=== PATIENT | female | born 1945 | race Caucasian/White ===

== ENCOUNTER → 2016-11-09 | Day surgery (SDC) | payer OTHER ==
[2016-10-12 13:32] VITALS: Ht 172.7 cm; Wt 106.8 kg
[~2016-11-09] VITALS: Ht 172.7 cm; Wt 106.8 kg
[~2016-11-09] MED LIST: ACET-1256 PO; ADVIN25/60 PO; ALBUAER19 INH; BENZ1CAP90 PO; CALC500C70 PO; CMD/25 PO; CMD25 PO; COEN100C7 PO; CRAN1CAP PO; CRAN1CAP15 PO; CYM/30 PO; CZR25 PO; DXM/4 PO; ERGO1CAP41 PO; FLUT0.15 NAE; GABA-112 PO; GLC/500 PO; GLIM1TAB2 PO; HYDR-5688 PO; LDXCR30 EXT; LEVO75TA5 PO; LORA-741 PO; LOSA50TA6 PO; MAGN400T6 PO; METF500T5 PO; MGNO400 PO; NCY50 PO; NRN100 PO; NTRGSL/4 UT; ONDA-63 PO; POLY335019 PO; PROM25TA16 PO; RANI150T2 PO; ROSU5TAB PO; TAPE50TA5 PO; TRIATAB3 PO; VNTHFA/IN INH; [UNRECOGNIZED DRUG - OTHER] PO
== END | disposition home or self-care (01) ==
LOC: EDSTATUS 07:30 → C.PAT 11:33
PROVIDERS: ATTEND Ophthalmology
DX: H26.9 Unspecified cataract (principal)

== ENCOUNTER 2017-01-16 22:42 | Inpatient (IN) | payer OTHER ==
[~2017-01-16] VITALS: Ht 170.2 cm; Wt 107.8 kg
[~2017-01-16 22:42] MED LIST changes: -ADVIN25/60 PO; -BENZ1CAP90 PO; -CALC500C70 PO; -CRAN1CAP PO; -CZR25 PO; -DXM/4 PO; -ERGO1CAP41 PO; -GLIM1TAB2 PO; -HYDR-5688 PO; -MAGN400T6 PO; -METF500T5 PO; -MGNO400 PO; -NCY50 PO; -NRN100 PO; -ONDA-63 PO; -PROM25TA16 PO; -RANI150T2 PO; -TAPE50TA5 PO; -VNTHFA/IN INH; -[UNRECOGNIZED DRUG - OTHER] PO
[2017-01-16] MEDS ORDERED: FENTANYL CITRATE INJ 50 MCG/1 ML 2 ML VIAL IV STA (23:20)
[2017-01-16] MEDS ORDERED: SODIUM CHLORIDE 0.9% 1000ML 1,000 ML IV STA (23:20)
[2017-01-16] MEDS ORDERED: PROMETHAZINE HCL INJ 25 MG in SODIUM CHLORIDE 0.9% 50ML 50 ML IV STA (23:20)
[2017-01-16] MEDS ORDERED: ONDANSETRON INJ 2 MG/ML 2 ML VIAL IV STA (23:20)
--- NOTE | 2017-01-16 23:24 | EMERGENCY ROOM VISIT NOTE ---
History Report prepared by Maddie: Ravin Mix Under the Supervision of: Dr. Temo Cooley M.D. First contact with patient: 23:11 Chief Complaint: ABDOMINAL PAIN Stated Complaint: CHEM ON FRI,VOMITING,ABD PAIN,BLOOD IN URINE History of Present Illness The patient is a 71 year old female who presents to the Emergency Room with complaints of intermittent vomiting since 1929. The patient's daughter states that the patient has additionally been sweating, had a fever, and she has had abdominal pain for the past few days that is worse at night when she eats. The patient states that she had chemo done two days ago. Additionally, the daughter states that the patient was at the doctor a few days ago, and there was some blood in the patient's urine, though the patient denies any burning with urination. The patient denies any history of pancreatitis or stomach ulcers, and she denies any leg swelling or passing out recently. Also, the patient does not have any diarrhea, and she states that her bowels are blocked up. She states that she took Zofran, however it did not help with her vomiting, and she is not currently on antibiotics. Source of History: patient, family Onset: 1928 Position: other (global) Quality: other (vomiting) Timing: intermittent Associated Symptoms: + fevers, + abdominal pain, + urinary symptoms, No diarrhea Note: Associated symptoms: Sweating Review of Systems See HPI for pertinent positives & negatives. A total of 10 systems reviewed and were otherwise negative. Past Medical & Surgical Medical Problems: (1) Asthma (2) Diab Karine Wo Compl, Type Ii Or Unspec Type, Not Uncntrld (3) Hypertension Nos (4) Ovarian cancer (5) SBO (small bowel obstruction) Family History Cancer Diabetes mellitus FH: heart disease FHx: gallbladder disease Hypertension Kidney disease Kidney stones Seizures Social History Smoking Status: Never Smoker Alcohol Use: none Drug Use: none Marital Status: Housing Status: lives with significant other Occupation Status: unemployed Current/Historical Medications Scheduled Coenzyme Q10 (Ubidecarenone) (Coq10), 100 MG PO QPM Cranberry-Vitamin C-Vitamin E (Cranberry Concentrate), 200 MG PO UD Dexamethasone (Decadron), 4 MG PO UD Duloxetine HCl (Cymbalta), 30 MG PO QPM Fluticasone Prop/Salmeterol (Advair Diskus 250/50 60 Dose), 1 PUFF PO BID Fluticasone Propionate (Nasal) (Flonase Allergy Relief), 2 SPRAYS SAI DAILY Gabapentin (Gabapentin), 200 MG PO QPM Gabapentin (Neurontin), 100 MG PO QAM Glimepiride (Glimepiride), 1 MG PO UD Hydrocodone/Acetaminophen 5MG/325MG ([place] 5MG/325MG), 1 TABLET PO Q4 Levothyroxine Sodium (Levothyroxine Sodium), 75 MCG PO QAM Losartan Potassium (Losartan Potassium), 25 MG PO DAILY Metformin Hcl Er (Glucophage Er), 500 MG PO DAILY Ranitidine HCl (Ranitidine HCl), 150 MG PO UD Rosuvastatin Calcium (Crestor), 5 MG PO QPM Triamterene/Hctz (Triamterene/Hctz 37.5-25MG), 1 TAB PO QAM Warfarin Sod (Coumadin), 2.5 MG PO 5XWK Warfarin Sod (Coumadin), 5 MG PO 2XWK Scheduled PRN Albuterol Hfa (Ventolin Hfa), 2 PUFFS INH Q4 PRN for Wheezing Benzonatate (Tessalon Perles), 200 MG PO TID PRN for Cough Lorazepam (Ativan), 0.5 MG PO Q4 PRN for Anxiety Ondansetron (Ondansetron HCl), 8 MG PO Q8 PRN for Nausea Polyethylene Glycol 3350 (Miralax), 17 GM PO DAILY PRN for Constipation Promethazine HCl (Promethazine HCl), 25 MG PO Q4 PRN for Nausea Allergies Coded Allergies: Carboplatin (Unverified Allergy, Unknown, anaphylaxis, 01/16/17) Lisinopril (Verified Adverse Reaction, Severe, coughing, 01/16/17) Physical Exam Vital Signs Date Time Temp Pulse Resp B/P (MAP) Pulse Ox O2 Delivery O2 Flow Rate FiO2 01/17/17 02:00 59 18 147/72 93 Room Air 01/17/17 00:13 56 18 117/59 95 Room Air 01/17/17 00:00 59 01/16/17 22:44 36.6 56 18 148/84 98 Room Air Physical Exam GENERAL: Patient is uncomfortable appearing and in moderate distress. Dry heaving. HEENT: No acute trauma, normocephalic atraumatic, mucous membranes dry, no nasal congestion, no scleral icterus. NECK: No stridor, no adenopathy, no meningismus, trachea is midline. LUNGS: No dyspnea. Clear to auscultation and equal bilaterally. No wheeze, no rhonchi. HEART: Regular rate and rhythm. No murmurs, rubs, gallops appreciated. ABDOMEN: Vague diffuse tenderness in the upper abdomen. Soft, bowel sounds positive, no masses appreciated, no peritonitis. CHEST: Port in the left upper chest. BACK: No midline tenderness, no CVA tenderness EXTREMITIES: Normal motion all extremities, no cyanosis, no edema. NEUROLOGIC: Alert and oriented, no acute motor or sensory deficits, no focal weakness, cranial nerves grossly intact. SKIN: No rash, no jaundice, no diaphoresis. Medical Decision & Procedures ER Provider Diagnostic Interpretation: CT results as stated below per interpretation by me and the radiologist: Please see [facility]. Improvement in the nodules. Early to partial bowel transition in the right lower quadrant. Laboratory Results 01/16/17 23:25 Red Blood Count 4.38, Mean Corpuscular Volume 87.0, Mean Corpuscular Hemoglobin 29.5, Mean Corpuscular Hemoglobin Concent 33.9, Mean Platelet Volume 9.7, Neutrophils (%) (Auto) 81.0, Lymphocytes (%) (Auto) 17.9, Monocytes (%) (Auto) 0.8, Eosinophils (%) (Auto) 0.0, Basophils (%) (Auto) 0.0, Neutrophils # (Auto) 10.24, Lymphocytes # (Auto) 2.26, Monocytes # (Auto) 0.10, Eosinophils # (Auto) 0.00, Basophils # (Auto) 0.00 01/16/17 23:25 Test 01/16/17 00:55 01/16/17 23:25 Urine Color YELLOW Urine Appearance CLEAR (CLEAR) Urine pH 6.5 (4.5-7.5) Urine Specific [place] 1.019 (1.000-1.030) Urine Protein NEG (NEG) Urine Glucose (UA) NEG (NEG) Urine Ketones TRACE (NEG) Urine Occult Blood NEG (NEG) Urine Nitrite NEG (NEG) Urine Bilirubin NEG (NEG) Urine Urobilinogen NEG (NEG) Urine Leukocyte Esterase TRACE (NEG) Urine WBC (Auto) 5-10 /hpf (0-5) Urine RBC (Auto) 0-4 /hpf (0-4) Urine Hyaline Casts (Auto) 1-5 /lpf (0-5) Urine Epithelial Cells (Auto) >30 /lpf (0-5) Urine Bacteria (Auto) NEG (NEG) White Blood Count 12.64 K/uL (4.8-10.8) Red Blood Count 4.38 M/uL (4.2-5.4) Hemoglobin 12.9 g/dL (12.0-16.0) Hematocrit 38.1 % (37-47) Mean Corpuscular Volume 87.0 fL (80-100) Mean Corpuscular Hemoglobin 29.5 pg (25-34) Mean Corpuscular Hemoglobin Concent 33.9 g/dl (32-36) Platelet Count 301 K/uL (130-400) Mean Platelet Volume 9.7 fL (7.4-10.4) Neutrophils (%) (Auto) 81.0 % Lymphocytes (%) (Auto) 17.9 % Monocytes (%) (Auto) 0.8 % Eosinophils (%) (Auto) 0.0 % Basophils (%) (Auto) 0.0 % Neutrophils # (Auto) 10.24 K/uL (1.4-6.5) Lymphocytes # (Auto) 2.26 K/uL (1.2-3.4) Monocytes # (Auto) 0.10 K/uL (0.11-0.59) Eosinophils # (Auto) 0.00 K/uL (0-0.5) Basophils # (Auto) 0.00 K/uL (0-0.2) RDW Standard Deviation 46.2 fL (36.4-46.3) RDW Coefficient of Variation 14.5 % (11.5-14.5) Immature Granulocyte % (Auto) 0.3 % Immature Granulocyte # (Auto) 0.04 K/uL (0.00-0.02) Prothrombin Time 43.7 SECONDS (9.0-12.0) Prothromb Time International Ratio 3.9 (0.9-1.1) Activated Partial Thromboplast Time > 300.0 SECONDS Partial Thromboplastin Ratio > 11.0 Anion Gap 9.0 mmol/L (3-11) Est Creatinine Clear Calc Drug Dose 68.0 ml/min Estimated GFR () 69.4 Estimated GFR (Non- 59.9 BUN/Creatinine Ratio 24.4 (10-20) Calcium Level 9.0 mg/dl (8.5-10.1) Magnesium Level 1.8 mg/dl (1.8-2.4) Total Bilirubin 1.3 mg/dl (0.2-1) Direct Bilirubin 0.2 mg/dl (0-0.2) Aspartate Amino Transf (AST/SGOT) 18 U/L (15-37) Alanine Aminotransferase (ALT/SGPT) 19 U/L (12-78) Alkaline Phosphatase 67 U/L (45-117) Total Protein 7.1 gm/dl (6.4-8.2) Albumin 3.3 gm/dl (3.4-5.0) Lipase 64 U/L (73-393) Laboratory results as reviewed by me. Medications Administered Medications (Trade) Dose Ordered Sig/Alcides Route Start Time Stop Time Status Last Admin Dose Admin Promethazine HCl 25 mg/Sodium Chloride 51 ml @ 204 mls/hr NOW STAT IV 01/16/17 23:20 01/16/17 23:34 DC 01/16/17 23:47 204 MLS/HR Fentanyl Citrate (Fentanyl Inj) 50 mcg NOW STAT IV 01/16/17 23:20 01/16/17 23:22 DC 01/16/17 23:46 50 MCG Sodium Chloride 1,000 ml @ 999 mls/hr Q1H1M STAT IV 01/16/17 23:20 01/17/17 00:20 DC 01/16/17 23:47 999 MLS/HR Ondansetron HCl (Zofran Inj) 4 mg NOW STAT IV 01/16/17 23:20 01/16/17 23:22 DC 01/16/17 23:46 4 MG Sodium Chloride 1,000 ml @ 100 mls/hr Q10H STAT IV 01/17/17 02:00 01/17/17 04:58 DC 01/17/17 02:00 100 MLS/HR ED Course 2311: The patient was evaluated in room A12. A complete history and physical exam was performed. 2320: Zofran Inj 4mg IV, Sodium Chloride 1000 ml @ 999 mls/hr, Fentanyl Inj 50mcg IV, Promethazine HCl 25mg/ Sodium Chloride 51ml @ 204mls/hr IV 2352: I reevaluated the patient, and she states that she is feeling better. 0038: The patient is feeling better, and I discussed at length with the patient' s family, and they would like to proceed with the CT scan. 0155: I reevaluated the patient, and she was sleeping. She has not vomited since she has been here. She will be NPO and we will start fluids on her. 0200: Sodium Chloride 1000 ml @ 100 mls/hr IV 0208: I discussed the patient's case with Dr. Muhammad, Hospitalist. He is going to evaluate the patient for further treatment. Medical Decision Differential: Gastroenteritis, Post Chemo vomiting, Food Borne, Esophageal Perforation, , Electrolyte Abnormality, Dehydration, Intraabdominal Infection, UTI/Pyelonephritis, Bowel Obstruction, Biliary Pathology, amongst other pathology entertained. 71 yr old pleasant female arrives with increasing nausea, vomiting and abdominal pain over last 24-48 hours s/p chemotherapy. Previous surgery for ovarian ca removal. Given Zofran, Phenergan, fentanyl, nss. Feeling better but with symptoms worse than previous felt that CT reasonable of abdomen. Partial vs early SBO noted with RLQ transition point. She is stable, has had no further vomiting and abdomen now soft. With CT findings and initial presentation I feel she does need to come in for further monitoring/treatment. Discussed with hospitalist for further work-up and evaluation. Family and patient agreeable with this plan. Medication Reconcilliation Current Medication List: was personally reviewed by me Blood Pressure Screening Patient's blood pressure: Normal blood pressure Consults Time Called: 020 Consulting Physician: Dr. Muhammad, Hospitalist Returned Call: [phone] I discussed the patient's case with Dr. Muhammad, Hospitalist. He is going to evaluate the patient for further treatment. Impression Primary Impression: Small bowel obstruction Additional Impression: Dehydration Scribe Attestation The scribe's documentation has been prepared under my direction and personally reviewed by me in its entirety. I confirm that the note above accurately reflects all work, treatment, procedures, and medical decision making performed by me. Departure Information Dispostion Being Evaluated By Hospitalist Referrals Marcelina Uriarte M.D. (PCP) Patient Instructions My [facility] Problem Qualifiers
[2017-01-16] MEDS ORDERED: CRAN1CAP PO (23:30)
[2017-01-16] MEDS ORDERED: METF500T5 PO (23:33)
[2017-01-16] MEDS ORDERED: GABA-112 PO (23:34)
[2017-01-16] MEDS ORDERED: NRN100 PO (23:34)
[2017-01-16] MEDS ORDERED: GLIM1TAB2 PO (23:35)
[2017-01-16] MEDS ORDERED: ONDA-63 PO (23:39)
[2017-01-16] MEDS ORDERED: PROM25TA16 PO (23:39)
[2017-01-16] MEDS ORDERED: CZR25 PO (23:39)
[2017-01-16] MEDS ORDERED: ADVIN25/60 PO (23:39)
[2017-01-16] MEDS ORDERED: RANI150T2 PO (23:39)
[2017-01-16] MEDS ORDERED: BENZ1CAP90 PO (23:42)
[2017-01-16] MEDS ORDERED: HYDR-5688 PO (23:43)
[2017-01-16] MEDS ORDERED: DXM/4 PO (23:44)
[2017-01-16] MEDS ORDERED: VNTHFA/IN INH (23:45)
[2017-01-16 23:50] LABS: COMPLETE YES; HEMATOCRIT 38.1 % (37-47); IG% 0.3 %; LYMPH % 17.9 %; LYMPH ABS # 2.26 K/uL (1.2-3.4); MEAN CORPUSCULAR HEMOGLOBIN 29.5 pg (25-34); MEAN CORPUSCULAR HGB CONC 33.9 g/dl (32-36); MEAN PLATELET VOLUME 9.7 fL (7.4-10.4); MONO % 0.8 %; PLATELET COUNT 301 K/uL (130-400); RED BLOOD COUNT 4.38 M/uL (4.2-5.4); WHITE BLOOD COUNT 12.64 K/uL (4.8-10.8)
[2017-01-17] LABS: BUN/CREATININE RATIO 24.4 (10-20); CREATININE 0.96 mg/dl (0.60-1.20); POTASSIUM 3.3 mmol/L (3.5-5.1)
[2017-01-17] MEDS ORDERED: OPTIRAY 320 IV PRN (01:00)
[2017-01-17 01:07] LABS: URINE APPEARANCE CLEAR (CLEAR); URINE BILIRUBIN NEG (NEG); URINE COLOR YELLOW; URINE EPITHELIAL CELL AUTO >30 /lpf (0-5); URINE NITRITE NEG (NEG); URINE PH 6.5 (4.5-7.5); URINE SPECIFIC GRAVITY 1.019 (1.000-1.030); UROBILINOGEN NEG (NEG); ZZUR CULT IF INDIC CLEAN CATCH NO
[2017-01-17 01:12] LABS: MANUAL MICROSCOPIC REQUIRED? NO; REVIEW REQ? NO
[2017-01-17] MEDS ORDERED: SODIUM CHLORIDE 0.9% 1000ML 1,000 ML IV STA (02:00)
[2017-01-17] MEDS ORDERED: POTASSIUM CHLORIDE 10 MEQ TABCR PO STA (02:13)
[2017-01-17] MEDS ORDERED: LACTATED RINGER'S 1000ML 1,000 ML IV SCH (02:15)
[2017-01-17 02:23] LABS: MAGNESIUM 1.8 mg/dl (1.8-2.4)
[2017-01-17] MEDS ORDERED: KETOROLAC TROMETHAMINE 30 MG/ML VIAL IV ONE (02:40)
[2017-01-17] MEDS ORDERED: METOCLOPRAMIDE HCL INJ 5 MG/ML 2 ML VIAL IV ONE (02:40)
[2017-01-17] MEDS ORDERED: LORAZEPAM 2 MG/ML 1 ML VIAL IV PRN (02:45)
[2017-01-17] MEDS ORDERED: PROMETHAZINE HCL INJ 12.5 MG in SODIUM CHLORIDE 0.9% 50ML 50 ML IV PRN (02:45)
[2017-01-17] MEDS ORDERED: POLYETHYLENE (MIRALAX) 17 GM PACK PO PRN (02:45)
[2017-01-17] MEDS ORDERED: GLUCOSE 10 TABS/TUBE PO PRN (02:45)
[2017-01-17] MEDS ORDERED: ACETAMINOPHEN 325 MG TAB PO PRN (02:45)
[2017-01-17] MEDS ORDERED: HYDROmorphone INJ 0.5 MG/0.5 ML SYR IV PRN (02:45)
[2017-01-17] MEDS ORDERED: GLUCAGON FOR INJ 1 MG VIAL SQ PRN (02:45)
[2017-01-17] MEDS ORDERED: METOCLOPRAMIDE HCL INJ 5 MG/ML 2 ML VIAL IV PRN (02:45)
[2017-01-17] MEDS ORDERED: GLUCOSE 40% GEL 15 GM TUBE PO PRN (02:45)
[2017-01-17] MEDS ORDERED: ONDANSETRON INJ 2 MG/ML 2 ML VIAL IV PRN (02:45)
[2017-01-17] MEDS ORDERED: DEXTROSE 50% 50 ML SYR IV PRN (02:45)
[2017-01-17] MEDS ORDERED: KETOROLAC TROMETHAMINE 30 MG/ML VIAL IV PRN (02:45)
[2017-01-17] MEDS ORDERED: KETOROLAC TROMETHAMINE 30 MG/ML VIAL ONE (02:53)
[2017-01-17] MEDS ORDERED: METOCLOPRAMIDE HCL INJ 5 MG/ML 2 ML VIAL ONE (02:53)
[2017-01-17 02:57] LABS: PROTHROMBIN TIME (PATIENT) 43.7 SECONDS (9.0-12.0)
[2017-01-17 03:24] LABS: PARTIAL THROMBOPLASTIN RATIO > 11.0
[2017-01-17] MEDS ORDERED: PHYTONADIONE 5 MG TAB PO STA (03:41)
[2017-01-17 03:43] VITALS: BP 113/73; PULSE 62; TEMP 36.6; O2SAT 95; Ht 170.2 cm; Wt 107.8 kg
[2017-01-17 03:55] LABS: INR 3.9 (0.9-1.1)
[2017-01-17] MEDS ORDERED: HYDROmorphone INJ 0.5 MG/0.5 ML SYR ONE (04:04)
[2017-01-17] MEDS ORDERED: BISACODYL 10 MG SUPP PR ONE (05:00)
[2017-01-17] MEDS ORDERED: POLYETHYLENE (MIRALAX) 17 GM PACK PO ONE (05:00)
[2017-01-17] MEDS ORDERED: INSULIN ASPART 100 UNITS/ML 3 ML PEN SC ONE (05:00)
[2017-01-17] MEDS ORDERED: INSULIN GLARGINE SOLOSTAR 100 UNITS/ML 3 ML PEN SC ONE (05:00)
[2017-01-17] MEDS ORDERED: DOCUSATE SODIUM/SENNA 50/8.6MG TAB PO ONE (05:00)
[2017-01-17] MEDS ORDERED: PHYTONADIONE PED INJ 1 MG, ORA-SWEET SYRUP 2.25 ML, ORA-PLUS SUSP. VEHICLE 2.25 ML, BAR... PO STA ×3 (05:11)
[2017-01-17] MEDS: LACTATED RINGER'S 1000ML 1,000 ML IV SCH ×2 (05:16→15:19)
[2017-01-17] MEDS: POTASSIUM CHLR 10 MEQ / WTR 10 MEQ in PREMIXED WATER 100 ML IV SCH ×2 (05:31→06:41)
[2017-01-17 06:24] VITALS: O2SAT 95
[2017-01-17] MEDS: INSULIN ASPART 100 UNITS/ML 3 ML PEN SC SCH ×4 (06:30→23:50)
[2017-01-17] MEDS ORDERED: NURSING VERBAL MED ORDER ONE (06:30)
[2017-01-17] MEDS: LEVOTHYROXINE 75 MCG TAB PO SCH (06:46)
[2017-01-17] MEDS ORDERED: INSULIN ASPART 100 UNITS/ML 3 ML PEN SC SCH (07:00)
--- NOTE | 2017-01-17 07:19 | DIAGNOSTIC IMAGING REPORT ---
ABD/PELVIS IV CONTRAST ONLY CLINICAL HISTORY: 71 years-old Female presenting with Diffuse upper abdominal pain, h/o ovarian CA. Recent chemo. TECHNIQUE: Multidetector CT of the abdomen and pelvis was performed after the administration of intravenous contrast. IV contrast: 93 mL of Optiray 320. A dose lowering technique was used consistent with the principles of ALARA (as low as reasonably achievable). COMPARISON: 02/09/2014. CT DOSE: The estimated cumulative dose is 1147.54 mGy.cm. FINDINGS: Mushroom Sorter Grader topogram: Surgical clips project over the right mid abdomen. Lung bases: Dependent opacities likely atelectasis. Normal heart size. No pericardial or pleural effusion. Liver: Normal morphology. No liver lesion. Patent hepatic vasculature. Biliary: No intrahepatic or extrahepatic biliary ductal dilatation. Normal gallbladder. Pancreas: Ill-defined hypoechoic region in the pancreatic head is unchanged from prior and likely represents focal fatty invagination. No pancreatic ductal dilatation. Spleen: Normal. Adrenal glands: Normal. Kidneys and ureters: Bilateral extrarenal pelvises. No hydronephrosis. Ureters normal. Gastrointestinal tract: The proximal sigmoid colon appears adhesed to the left dome of the bladder. There is also kinking of the proximal and distal sigmoid colon and tethering of distal ileum(series 2 image 67. Associated bandlike soft tissue in the mesentery likely represents adhesions. No delfina nodularity in this region. This has a somewhat similar appearance to prior exam. Diverticulosis of the sigmoid colon. Mild stool burden. The proximal transverse colon is focally narrowed in the anterior right mid abdomen (series 2 images 40-48). This is new from prior exam but does not seem to result in obstruction at this level. Distal ileum decompressed. More up stream ileum is dilated up to 2.8 cm with inspissated material. The downstream aspect of this dilated small bowel transitions to a more narrow caliber in the right lower quadrant at the site of suspected adhesions. The up stream portion of the dilated small bowel taper smoothly without evidence of an up stream transition point. Peritoneal cavity: Trace free fluid in the right lower quadrant. Again, bandlike opacities noted in the mesentery, suggesting adhesions. Mild mesenteric infiltration. Nodularity along the infraumbilical region at the level of the anterior abdominal wall musculature is new from prior (series 2 image 60). New nodularity also noted in the left upper quadrant. Bladder: Normal. Pelvic organs: Uterus surgically absent. No adnexal masses. Vasculature: Atherosclerosis of the normal caliber abdominal aorta. IVC patent. Lymph nodes: No enlarged lymph nodes in the abdomen or pelvis. Abdominal wall: Nodularity as mentioned above. Musculoskeletal: Normal. IMPRESSION: 1. Evidence of small bowel obstruction with a transition point in the right lower quadrant with suspected adhesions. There is associated tethering of the sigmoid colon without evidence of obstruction at that level. 2. New apparent stenosis of the proximal transverse colon at the site of surgical clips, also suspected adhesions in this region. No delfina evidence of obstruction results. 3. New nodularity in the left upper quadrant and along the anterior abdominal wall is suspicious for recurrent peritoneal metastases. The report will be called/faxed according to standard departmental protocol. Electronically signed by: Shailesh Armstrong M.D. 01/17/2017 7:18 AM Dictated Date/Time: 01/17/2017 7:03 AM
[2017-01-17 07:21] VITALS: BP 119/77; PULSE 55; TEMP 36.9; O2SAT 95
--- NOTE | 2017-01-17 07:31 | HISTORY & PHYSICAL EXAMINATION ---
DATE OF ADMISSION: 01/16/2017 PRIMARY CARE DOCTOR: Dr. Uriarte. CHIEF COMPLAINT: Abdominal pain, nausea, vomiting. HISTORY OF PRESENT ILLNESS: History obtained from patient, patient's daughter, records. Medical history significant for recurrent ovarian cancer status post surgery, ongoing chemotherapy, hypertension, hyperlipidemia, diabetes type 2 on oral meds, pulmonary embolism on anticoagulation. Recent confinement January 2014 for bilateral pulmonary embolism. Patient discharged on Coumadin. Patient found to have ovarian cancer in 2013, subsequently underwent surgery at [facility] (hysterectomy, partial removal of colon/colostomy, pelvic cancer resection, bilateral salpingo-oophorectomy). Relapse noted a year after surgery. Patient underwent chemotherapy. Recurrent disease discovered September of this year. Chemotherapy started. CT of abdomen and pelvis done last week showed significant decrease in size of prior multiple peritoneal mets; decreasing CA 125 as well on lab work. Last few days, patient noted left-sided achy abdominal pain with nausea and constipation. Outpatient UA normal. Last night patient had worsening abdominal pain with nausea and vomiting. No fever, no chills. Patient was brought to the Emergency Room by daughter. MEDICAL HISTORY: As above. SURGERIES: She has had cataract surgery, A-port placement, knee surgery, hysterectomy, bilateral salpingo-oophorectomy, partial colon removal, other gynecological procedures. HOME MEDICATIONS: Zofran, promethazine, fluticasone, rosuvastatin, triamterene, albuterol, MiraLax, levothyroxine, losartan, Coumadin, lorazepam, Vicodin, Neurontin, Cymbalta, metformin and glimepiride. ALLERGIES: LISINOPRIL. FAMILY HISTORY: Breast cancer, diabetes, heart disease. PERSONAL AND SOCIAL HISTORY: Nonsmoker, no chronic intake of alcoholic beverages. 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 Lives with daughter. REVIEW OF SYSTEMS: As per HPI, all other ROS negative. PHYSICAL EXAMINATION: VITAL SIGNS: Blood pressure was noted to be 150/81, pulse rate 55, respiratory rate 18, temperature 36.6, sats 98 on room air. GENERAL: Noted to be uncomfortable. No respiratory distress. SKIN: Normal color. HEENT: Alopecia. [place] palpebral conjunctivae. Dry mucosa. NECK: Short neck. LUNGS: Decreased breath sounds. HEART: Bradycardic. ABDOMEN: Some distention and tenderness in the left. EXTREMITIES: codi LE edema, no tenderness. NEUROLOGIC: No gross focality. LABS: Hemoglobin was noted to be 12.9, hematocrit 38.1, white cells 12.6, platelets 301, sodium 140, potassium 3.3, chloride 100, CO2 of 31, BUN 22, creatinine 0.9, glucose was 212. INR 3.9 CT abdomen and pelvis initial read : significant decrease in nodular omental infiltration compared to January 2014 exam, residual carcinomatosis on the left upper quadrant until the spleen lateral to the stoma as well as lateral to the colon, dilated small bowel loops predominant in the left abdomen with fecalization of bowel contents in the lower midline abdomen just proximal to the incision point in the right lower quadrant, small-bowel obstruction which may be early or partial which may be due to adhesions, diverticulosis, underdistention. ASSESSMENT: 1. Small bowel obstruction hx abdominal surgery for ovarian cancer 2013 relapsed disease ongoing chemotx improving tumor burden as of recent outpx CT 2. hypertension, slightly elevated 3. DM2 on oral medications, reasonable control as of recent [id number] 4. pulmonary embolism on anticoagulation, INR is pending. 5. Hypokalemia secondary to emesis. PLAN: GMF NG tube decompression bowel rest, analgesia, antiemetics replace potassium. Bowel regimen. Surgery consult RE small-bowel obstruction. hold Coumadin for now ISS BG goal 140-180 Deep venous thrombosis prophylaxis. IV heparin while Coumadin on hold if INR less than 2. DNR. MTDD
--- NOTE | 2017-01-17 08:55 | Surgery Consultation ---
Consultation Date of Consultation: Jan 17, 2017. Attending Physician: Corina Shah.Dulce Maria Reason for Consultation: SBO History of Present Illness pt with a history of ovarian cancer.... had chemo tuesday...on tuesday began having abdominal distension and n/v. had been having some lower abdominal pain after eating for several weeks. ct shows SBO. she currently is feeling somewhat better. had a small bm this am. Past Medical/Surgical History Medical Problems: (1) Dehydration Status: Acute (2) Small bowel obstruction Status: Acute Family History Cancer Diabetes mellitus FH: heart disease FHx: gallbladder disease Hypertension Kidney disease Kidney stones Seizures Social History Smoking Status: Never Smoker Drug Use: none Marital Status: Housing Status: lives with significant other Occupation Status: unemployed Allergies Coded Allergies: Carboplatin (Unverified Allergy, Unknown, anaphylaxis, 01/16/17) Lisinopril (Verified Adverse Reaction, Severe, coughing, 01/16/17) Home Medications Scheduled Coenzyme Q10 (Ubidecarenone) (Coq10), 100 MG PO QPM Cranberry-Vitamin C-Vitamin E (Cranberry Concentrate), 200 MG PO UD Dexamethasone (Decadron), 4 MG PO UD Duloxetine HCl (Cymbalta), 30 MG PO QPM Fluticasone Prop/Salmeterol (Advair Diskus 250/50 60 Dose), 1 PUFF PO BID Fluticasone Propionate (Nasal) (Flonase Allergy Relief), 2 SPRAYS SAI DAILY Gabapentin (Gabapentin), 200 MG PO QPM Gabapentin (Neurontin), 100 MG PO QAM Glimepiride (Glimepiride), 1 MG PO UD Hydrocodone/Acetaminophen 5MG/325MG (Lund 5MG/325MG), 1 TABLET PO Q4 Levothyroxine Sodium (Levothyroxine Sodium), 75 MCG PO QAM Losartan Potassium (Losartan Potassium), 25 MG PO DAILY Metformin Hcl Er (Glucophage Er), 500 MG PO DAILY Ranitidine HCl (Ranitidine HCl), 150 MG PO UD Rosuvastatin Calcium (Crestor), 5 MG PO QPM Triamterene/Hctz (Triamterene/Hctz 37.5-25MG), 1 TAB PO QAM Warfarin Sod (Coumadin), 2.5 MG PO 5XWK Warfarin Sod (Coumadin), 5 MG PO 2XWK Scheduled PRN Albuterol Hfa (Ventolin Hfa), 2 PUFFS INH Q4 PRN for Wheezing Benzonatate (Tessalon Perles), 200 MG PO TID PRN for Cough Lorazepam (Ativan), 0.5 MG PO Q4 PRN for Anxiety Ondansetron (Ondansetron HCl), 8 MG PO Q8 PRN for Nausea Polyethylene Glycol 3350 (Miralax), 17 GM PO DAILY PRN for Constipation Promethazine HCl (Promethazine HCl), 25 MG PO Q4 PRN for Nausea Current Inpatient Medications Current Inpatient Medications Medications (Trade) Dose Ordered Sig/Alcides Route Start Time Stop Time Status Last Admin Dose Admin Ioversol (Optiray 320) 100 ml UD PRN IV 01/17/17 01:00 01/21/17 00:59 Metoclopramide HCl (Reglan Inj) 10 mg Q6H PRN IV 01/17/17 02:45 02/16/17 02:44 Lactated Ringer's 1,000 ml @ 80 mls/hr [id number] IV 01/17/17 02:45 02/16/17 02:14 01/17/17 05:16 80 MLS/HR Acetaminophen (Tylenol Tab) 650 mg Q4H PRN PO 01/17/17 02:45 02/16/17 02:44 Glucose (Glucose 40% Gel) 15-30 GRAMS 15 GRAMS... UD PRN PO 01/17/17 02:45 02/16/17 02:44 Glucose (Glucose Chew Tab) 4-8 Tablets 4 Tabl... UD PRN PO 01/17/17 02:45 02/16/17 02:44 Dextrose (Dextrose 50% 50ML Syringe) 25-50ML OF 50% DW IV FOR... UD PRN IV 01/17/17 02:45 02/16/17 02:44 Glucagon (Glucagon Inj) 1 mg UD PRN SQ 01/17/17 02:45 02/16/17 02:44 Ondansetron HCl (Zofran Inj) 4 mg Q6H PRN IV 01/17/17 02:45 02/16/17 02:44 Promethazine HCl 12.5 mg/Sodium Chloride 50.5 ml @ 204 mls/hr Q6H PRN IV 01/17/17 02:45 02/16/17 02:44 Duloxetine HCl (Cymbalta Cap) 30 mg QPM PO 01/17/17 21:00 02/16/17 20:59 Salmeterol Xinafoate/ Fluticasone (Advair Diskus 250/50 Inh) 1 puff BID INH 01/17/17 09:00 02/16/17 08:59 Fluticasone Propionate (Flonase Nasal [place]) 2 sprays DAILY SAI 01/17/17 09:00 02/16/17 08:59 Gabapentin (Neurontin Cap) 200 mg QPM PO 01/17/17 21:00 02/16/17 20:59 Gabapentin (Neurontin Cap) 100 mg QAM PO 01/17/17 09:00 02/16/17 08:59 Acetaminophen/ Hydrocodone Bitart (Lund 5/325 Tab) 1 tab Q4H PRN PO 01/17/17 02:45 01/31/17 02:44 Levothyroxine Sodium (Synthroid Tab) 75 mcg DAILYBB PO 01/17/17 07:15 02/16/17 07:14 01/17/17 06:46 75 MCG Losartan Potassium (coZAAR TAB) 25 mg DAILY PO 01/17/17 09:00 02/16/17 08:59 Rosuvastatin Calcium (Crestor Tab) 5 mg QPM PO 01/17/17 21:00 02/16/17 20:59 Polyethylene (Miralax Powder Packet) 17 gm DAILY PRN PO 01/17/17 02:45 02/16/17 02:44 Insulin Glargine (Lantus Solostar Pen) 5 units DAILY SC 01/18/17 09:00 02/17/17 08:59 Hydromorphone HCl (Dilaudid Inj) 0.5 mg Q3H PRN IV 01/17/17 02:45 01/31/17 02:44 Senna/Docusate Sodium (Senokot S Tab) 1 tab BID PO 01/17/17 09:00 02/16/17 08:59 Lorazepam 0.5 mg/ Syringe 1 ml @ 1 mls/min Q4H PRN IV 01/17/17 06:30 02/16/17 06:29 Insulin Aspart (novoLOG ASPART) SLIDING SCALE If C... Q6H SC 01/17/17 06:45 02/16/17 06:44 Heparin Sodium (Porcine) (Heparin 100 Unit/ml 5ml Flush) 5 ml PRN PRN FLUSH 01/17/17 07:45 02/16/17 07:44 Review of Systems Constitutional: + fatigue Abdomen: + nausea, + vomiting, + constipation Physical Exam Date Time Temp Pulse Resp B/P (MAP) Pulse Ox O2 Delivery O2 Flow Rate FiO2 01/17/17 07:21 36.9 55 16 119/77 (91) 95 Room Air 01/17/17 06:24 95 Room Air 01/17/17 03:43 36.6 62 18 113/73 95 Room Air 01/17/17 02:40 58 18 152/81 98 Room Air 01/17/17 02:00 59 18 147/72 93 Room Air 01/17/17 00:13 56 18 117/59 95 Room Air 01/17/17 00:00 59 01/16/17 22:44 36.6 56 18 148/84 98 Room Air General Appearance: no apparent distress Head: normocephalic Eyes: EOMI ENT: hearing grossly normal Neck: no JVD Respiratory/Chest: no respiratory distress, no accessory muscle use Abdomen/GI: soft, + pertinent finding (nondistended. nontender. ) Neurologic/Psych: alert, oriented x 3 Skin: normal color, warm/dry Laboratory Results Last 24 Hours Test 01/16/17 23:25 01/17/17 05:39 White Blood Count 12.64 K/uL Red Blood Count 4.38 M/uL Hemoglobin 12.9 g/dL Hematocrit 38.1 % Mean Corpuscular Volume 87.0 fL Mean Corpuscular Hemoglobin 29.5 pg Mean Corpuscular Hemoglobin Concent 33.9 g/dl Platelet Count 301 K/uL Mean Platelet Volume 9.7 fL Neutrophils (%) (Auto) 81.0 % Lymphocytes (%) (Auto) 17.9 % Monocytes (%) (Auto) 0.8 % Eosinophils (%) (Auto) 0.0 % Basophils (%) (Auto) 0.0 % Neutrophils # (Auto) 10.24 K/uL Lymphocytes # (Auto) 2.26 K/uL Monocytes # (Auto) 0.10 K/uL Eosinophils # (Auto) 0.00 K/uL Basophils # (Auto) 0.00 K/uL RDW Standard Deviation 46.2 fL RDW Coefficient of Variation 14.5 % Immature Granulocyte % (Auto) 0.3 % Immature Granulocyte # (Auto) 0.04 K/uL Prothrombin Time 43.7 SECONDS Prothromb Time International Ratio 3.9 Activated Partial Thromboplast Time > 300.0 SECONDS Partial Thromboplastin Ratio > 11.0 Sodium Level 140 mmol/L Potassium Level 3.3 mmol/L Chloride Level 100 mmol/L Carbon Dioxide Level 31 mmol/L Anion Gap 9.0 mmol/L Blood Urea Nitrogen 23 mg/dl Creatinine 0.96 mg/dl Est Creatinine Clear Calc Drug Dose 68.0 ml/min Estimated GFR () 69.4 Estimated GFR (Non- 59.9 BUN/Creatinine Ratio 24.4 Random Glucose 212 mg/dl Calcium Level 9.0 mg/dl Magnesium Level 1.8 mg/dl Total Bilirubin 1.3 mg/dl Direct Bilirubin 0.2 mg/dl Aspartate Amino Transf (AST/SGOT) 18 U/L Alanine Aminotransferase (ALT/SGPT) 19 U/L Alkaline Phosphatase 67 U/L Total Protein 7.1 gm/dl Albumin 3.3 gm/dl Lipase 64 U/L Bedside Glucose 198 mg/dl Assessment & Plan 1. SBO vs ileus clinically improving already/small bm this am NGT with minimal output conservative management. IVF/NGT. will repeat imaging tomorrow.
[2017-01-17] MEDS: FLUTICASONE/SALMETEROL 250/50 (ADVAIR) 14 PUFF/1 INHALER INH SCH ×2 (09:36→21:42)
[2017-01-17] MEDS: LOSARTAN POTASSIUM 25 MG TAB PO SCH (09:37)
[2017-01-17] MEDS: FLUTICASONE PROPIONATE NA SPR 16 GM BTL NAE SCH (09:37)
[2017-01-17] MEDS: GABAPENTIN 100 MG CAP PO SCH (09:39)
[2017-01-17] MEDS: DOCUSATE SODIUM/SENNA 50/8.6MG TAB PO SCH ×2 (09:39→21:47)
[2017-01-17 10:09] LABS: COMPLETE YES; HEMATOCRIT 34.8 % (37-47); IG% 0.3 %; LYMPH ABS # 1.86 K/uL (1.2-3.4); MEAN CELL VOLUME 88.1 fL (80-100); MEAN CORPUSCULAR HEMOGLOBIN 28.9 pg (25-34); MEAN CORPUSCULAR HGB CONC 32.8 g/dl (32-36); MEAN PLATELET VOLUME 9.1 fL (7.4-10.4); MONO % 0.5 %; NEUT % 74.2 %; PLATELET COUNT 223 K/uL (130-400); RED BLOOD COUNT 3.95 M/uL (4.2-5.4); WHITE BLOOD COUNT 7.45 K/uL (4.8-10.8)
[2017-01-17 10:22] LABS: INR 3.5 (0.9-1.1); PROTHROMBIN TIME (PATIENT) 39.7 SECONDS (9.0-12.0)
[2017-01-17 10:47] LABS: BUN/CREATININE RATIO 25.4 (10-20); CALCIUM 8.3 mg/dl (8.5-10.1); CREATININE 0.99 mg/dl (0.60-1.20); POTASSIUM 3.8 mmol/L (3.5-5.1)
--- NOTE | 2017-01-17 11:35 | Progress Note ---
Internal Med Progress Note Date of Service: Jan 17, 2017. Provider Documentation: SUBJECTIVE: Patient is doing slightly better. NG tube- clamped- doing well, No nausea, vomiting. Had 2 small BMs Abdominal pain is controlled. No fever, chills. OBJECTIVE: Vital Signs-as noted below Exam: General- AAOX3, no distress, Chronically ill looking Neck-Supple, No JVD Lungs-AEBE, no wheezing, rhonchi, rales Heart-S1, S2 normal Abdomen-Soft, tenderness lower quadrant, no rigidity, BS sluggish Extremities-No edema Lab data as noted below. ASSESSMENT & PLAN: ASSESSMENT AND PLAN : SMALL BOWEL OBSTRUCTION Secondary to adhesions with hx of ovarial carcinoma with peritoneal metastasis -Clinically improving- Had 2 small BMs, abdominal pain is better. -NG tube- clamped now, doing okay, IV Fluids, NPO -Surgery on board- conservative mx for now, may consider repeating CT scan tomorrow -Work up- CT abd/pelvis- 1. Evidence of small bowel obstruction with a transition point in the right lower quadrant with suspected adhesions. There is associated tethering of the sigmoid colon without evidence of obstruction at that level. 2. New apparent stenosis of the proximal transverse colon at the site of surgical clips, also suspected adhesions in this region. No delfina evidence of obstruction results. 3. New nodularity in the left upper quadrant and along the anterior abdominal wall is suspicious for recurrent peritoneal metastases. HYPOKALEMIA Secondary to above Replaced . -Monitor METASTATIC OVARIAN CARCINOMA S/P abdominal surgery in 2013. Relapsed disease and ongoing chemotherapy -Last chemo was on 01/14/17 -Chronic pain likely secondary to this. On pain medications -Per last ct scan improving tumor burden , but CT scan here- recurrent peritoneal metastasis. -Updated patient and daughter about these results- aware about it. HX OF PE On coumadin - held as INR 3.5 -INR monitoring HTN -Stable DM-II Stable, controlled per outpatient hba1c -ISS, Accuchecks DVT PROPHYLAXIS On coumadin, INR supra therapeutic DNR DISPOSITION Medical mx in progress Expected discharge home when stable Updated daughter by bedside. Vital Signs: Date Time Temp Pulse Resp B/P (MAP) Pulse Ox O2 Delivery O2 Flow Rate FiO2 01/17/17 07:29 Room Air 01/17/17 07:21 36.9 55 16 119/77 (91) 95 Room Air 01/17/17 06:24 95 Room Air 01/17/17 03:43 36.6 62 18 113/73 95 Room Air 01/17/17 02:40 58 18 152/81 98 Room Air 01/17/17 02:00 59 18 147/72 93 Room Air 01/17/17 00:13 56 18 117/59 95 Room Air 01/17/17 00:00 59 01/16/17 22:44 36.6 56 18 148/84 98 Room Air Lab Results: Results Past 24 Hours Test 01/16/17 23:25 01/17/17 05:39 01/17/17 09:58 Range/Units White Blood Count 12.64 7.45 4.8-10.8 K/uL Red Blood Count 4.38 3.95 4.2-5.4 M/uL Hemoglobin 12.9 11.4 12.0-16.0 g/dL Hematocrit 38.1 34.8 37-47 % Mean Corpuscular Volume 87.0 88.1 80-100 fL Mean Corpuscular Hemoglobin 29.5 28.9 25-34 pg Mean Corpuscular Hemoglobin Concent 33.9 32.8 32-36 g/dl Platelet Count 301 223 130-400 K/uL Mean Platelet Volume 9.7 9.1 7.4-10.4 fL Neutrophils (%) (Auto) 81.0 74.2 % Lymphocytes (%) (Auto) 17.9 25.0 % Monocytes (%) (Auto) 0.8 0.5 % Eosinophils (%) (Auto) 0.0 0.0 % Basophils (%) (Auto) 0.0 0.0 % Neutrophils # (Auto) 10.24 5.53 1.4-6.5 K/uL Lymphocytes # (Auto) 2.26 1.86 1.2-3.4 K/uL Monocytes # (Auto) 0.10 0.04 0.11-0.59 K/uL Eosinophils # (Auto) 0.00 0.00 0-0.5 K/uL Basophils # (Auto) 0.00 0.00 0-0.2 K/uL RDW Standard Deviation 46.2 47.7 36.4-46.3 fL RDW Coefficient of Variation 14.5 14.7 11.5-14.5 % Immature Granulocyte % (Auto) 0.3 0.3 % Immature Granulocyte # (Auto) 0.04 0.02 0.00-0.02 K/uL Prothrombin Time 43.7 39.7 9.0-12.0 SECONDS Prothromb Time International Ratio 3.9 3.5 0.9-1.1 Activated Partial Thromboplast Time > 300.0 21.0-31.0 SECONDS Partial Thromboplastin Ratio > 11.0 Sodium Level 140 138 136-145 mmol/L Potassium Level 3.3 3.8 3.5-5.1 mmol/L Chloride Level 100 101 98-107 mmol/L Carbon Dioxide Level 31 30 21-32 mmol/L Anion Gap 9.0 7.0 3-11 mmol/L Blood Urea Nitrogen 23 25 7-18 mg/dl Creatinine 0.96 0.99 0.60-1.20 mg/dl Est Creatinine Clear Calc Drug Dose 68.0 66.9 ml/min Estimated GFR () 69.4 66.9 Estimated GFR (Non- 59.9 57.7 BUN/Creatinine Ratio 24.4 25.4 10-20 Random Glucose 212 139 70-99 mg/dl Calcium Level 9.0 8.3 8.5-10.1 mg/dl Magnesium Level 1.8 1.8-2.4 mg/dl Total Bilirubin 1.3 0.2-1 mg/dl Direct Bilirubin 0.2 0-0.2 mg/dl Aspartate Amino Transf (AST/SGOT) 18 15-37 U/L Alanine Aminotransferase (ALT/SGPT) 19 12-78 U/L Alkaline Phosphatase 67 45-117 U/L Total Protein 7.1 6.4-8.2 gm/dl Albumin 3.3 3.4-5.0 gm/dl Lipase 64 73-393 U/L Bedside Glucose 198 70-90 mg/dl
[2017-01-17] MEDS ORDERED: COUGH DROP (SUGAR FREE) LOZ 24 LOZ/1 BOX PO PRN (13:45)
[2017-01-17] MEDS ORDERED: NURSING DECISION MEDICATION ORDER SCH (13:45)
[2017-01-17 15:07] VITALS: BP 149/77; PULSE 64; TEMP 36.7; O2SAT 93
[2017-01-17] MEDS: HYDROCODONE/ACETAMOPHEN 5/325MG TAB PO PRN ×2 (16:36→21:49)
[2017-01-17] MEDS: LORAZEPAM INJ 0.5 MG in SYRINGE 0.75 ML IV PRN ×2 (17:46→22:09)
[2017-01-17 20:36] VITALS: TEMP 36.6
[2017-01-17] MEDS ORDERED: GABAPENTIN 250 MG/5 ML 470 ML BTL NG SCH (21:00)
[2017-01-17] MEDS: ROSUVASTATIN CALCIUM 10 MG TAB PO SCH (21:47)
[2017-01-17] MEDS: DULOXETINE (CYMBALTA) 30 MG CAP PO SCH (22:14)
[2017-01-17 22:53] VITALS: BP 111/67; PULSE 69; TEMP 36.6; O2SAT 93
[2017-01-18] MEDS: LACTATED RINGER'S 1000ML 1,000 ML IV SCH ×2 (03:39→15:27)
[2017-01-18 05:56] LABS: BASO % 0.2 %; BASO ABS # 0.01 K/uL (0-0.2); COMPLETE YES; EOS % 0.7 %; HEMATOCRIT 33.3 % (37-47); IG% 0.3 %; LYMPH % 29.4 %; MEAN CORPUSCULAR HEMOGLOBIN 29.2 pg (25-34); MEAN CORPUSCULAR HGB CONC 32.4 g/dl (32-36); MEAN PLATELET VOLUME 9.8 fL (7.4-10.4); MONO % 0.3 %; NEUT % 69.1 %; PLATELET COUNT 196 K/uL (130-400); WHITE BLOOD COUNT 6.13 K/uL (4.8-10.8)
[2017-01-18] MEDS: INSULIN ASPART 100 UNITS/ML 3 ML PEN SC SCH ×3 (06:01→18:21)
[2017-01-18] MEDS: LEVOTHYROXINE 75 MCG TAB PO SCH (06:02)
[2017-01-18 06:10] LABS: INR 2.2 (0.9-1.1); PROTHROMBIN TIME (PATIENT) 24.5 SECONDS (9.0-12.0)
[2017-01-18 06:33] LABS: CALCIUM 8.2 mg/dl (8.5-10.1); CREATININE 0.8 mg/dl (0.60-1.20); POTASSIUM 3.5 mmol/L (3.5-5.1)
--- NOTE | 2017-01-18 07:39 | DIAGNOSTIC IMAGING REPORT ---
[facility] CLINICAL HISTORY: sob pain COMPARISON STUDY: No previous studies for comparison. FINDINGS: Nasogastric tube within the mid stomach. Nonobstructive bowel pattern. Several surgical clips the right paravertebral location. Several pelvic vascular calcifications. IMPRESSION: Nonobstructive bowel pattern. Nasogastric tube within the mid stomach. The above report was generated using voice recognition software. It may contain grammatical, syntax or spelling errors. Electronically signed by: Rasheed Brown M.D. 01/18/2017 7:38 AM Dictated Date/Time: 01/18/2017 7:37 AM
[2017-01-18 07:45] VITALS: BP 128/78; PULSE 72; TEMP 36.4; O2SAT 94
[2017-01-18 08:15] VITALS: O2SAT 94
[2017-01-18] MEDS ORDERED: INSULIN GLARGINE SOLOSTAR 100 UNITS/ML 3 ML PEN SC SCH ×2 (09:00→21:00)
[2017-01-18] MEDS ORDERED: GABAPENTIN 250 MG/5 ML 470 ML BTL NG SCH (09:00)
[2017-01-18 09:22] VITALS: O2SAT 94
--- NOTE | 2017-01-18 09:53 | Surgery Progress Note ---
Surgery Progress Note Date of Service Jan 18, 2017. Subjective pt feeling better. denies abdominal pain or nausea. +bm's times 2 yesterday Objective Vital Signs: Date Time Temp Pulse Resp B/P (MAP) Pulse Ox O2 Delivery O2 Flow Rate FiO2 01/18/17 09:22 94 Room Air 01/18/17 07:45 36.4 72 14 128/78 (95) 94 Room Air 01/17/17 23:45 Room Air 01/17/17 22:53 36.6 69 16 111/67 (82) 93 Room Air 01/17/17 20:36 36.6 01/17/17 16:30 Room Air 01/17/17 15:07 36.7 64 18 149/77 (101) 93 Room Air General Appearance: no apparent distress Head: atraumatic Neck: no JVD Respiratory/Chest: no respiratory distress, no accessory muscle use Abdomen: non tender, non distended, soft Laboratory Results: Results Past 24 Hours Test 01/17/17 09:58 01/17/17 12:02 01/17/17 17:55 01/17/17 23:48 Range/Units White Blood Count 7.45 4.8-10.8 K/uL Red Blood Count 3.95 4.2-5.4 M/uL Hemoglobin 11.4 12.0-16.0 g/dL Hematocrit 34.8 37-47 % Mean Corpuscular Volume 88.1 80-100 fL Mean Corpuscular Hemoglobin 28.9 25-34 pg Mean Corpuscular Hemoglobin Concent 32.8 32-36 g/dl Platelet Count 223 130-400 K/uL Mean Platelet Volume 9.1 7.4-10.4 fL Neutrophils (%) (Auto) 74.2 % Lymphocytes (%) (Auto) 25.0 % Monocytes (%) (Auto) 0.5 % Eosinophils (%) (Auto) 0.0 % Basophils (%) (Auto) 0.0 % Neutrophils # (Auto) 5.53 1.4-6.5 K/uL Lymphocytes # (Auto) 1.86 1.2-3.4 K/uL Monocytes # (Auto) 0.04 0.11-0.59 K/uL Eosinophils # (Auto) 0.00 0-0.5 K/uL Basophils # (Auto) 0.00 0-0.2 K/uL RDW Standard Deviation 47.7 36.4-46.3 fL RDW Coefficient of Variation 14.7 11.5-14.5 % Immature Granulocyte % (Auto) 0.3 % Immature Granulocyte # (Auto) 0.02 0.00-0.02 K/uL Prothrombin Time 39.7 9.0-12.0 SECONDS Prothromb Time International Ratio 3.5 0.9-1.1 Sodium Level 138 136-145 mmol/L Potassium Level 3.8 3.5-5.1 mmol/L Chloride Level 101 98-107 mmol/L Carbon Dioxide Level 30 21-32 mmol/L Anion Gap 7.0 3-11 mmol/L Blood Urea Nitrogen 25 7-18 mg/dl Creatinine 0.99 0.60-1.20 mg/dl Est Creatinine Clear Calc Drug Dose 66.9 ml/min Estimated GFR () 66.9 Estimated GFR (Non- 57.7 BUN/Creatinine Ratio 25.4 10-20 Random Glucose 139 70-99 mg/dl Calcium Level 8.3 8.5-10.1 mg/dl Bedside Glucose 129 116 123 70-90 mg/dl Test 01/18/17 05:40 01/18/17 06:00 Range/Units White Blood Count 6.13 4.8-10.8 K/uL Red Blood Count 3.70 4.2-5.4 M/uL Hemoglobin 10.8 12.0-16.0 g/dL Hematocrit 33.3 37-47 % Mean Corpuscular Volume 90.0 80-100 fL Mean Corpuscular Hemoglobin 29.2 25-34 pg Mean Corpuscular Hemoglobin Concent 32.4 32-36 g/dl Platelet Count 196 130-400 K/uL Mean Platelet Volume 9.8 7.4-10.4 fL Neutrophils (%) (Auto) 69.1 % Lymphocytes (%) (Auto) 29.4 % Monocytes (%) (Auto) 0.3 % Eosinophils (%) (Auto) 0.7 % Basophils (%) (Auto) 0.2 % Neutrophils # (Auto) 4.24 1.4-6.5 K/uL Lymphocytes # (Auto) 1.80 1.2-3.4 K/uL Monocytes # (Auto) 0.02 0.11-0.59 K/uL Eosinophils # (Auto) 0.04 0-0.5 K/uL Basophils # (Auto) 0.01 0-0.2 K/uL RDW Standard Deviation 47.7 36.4-46.3 fL RDW Coefficient of Variation 14.4 11.5-14.5 % Immature Granulocyte % (Auto) 0.3 % Immature Granulocyte # (Auto) 0.02 0.00-0.02 K/uL Prothrombin Time 24.5 9.0-12.0 SECONDS Prothromb Time International Ratio 2.2 0.9-1.1 Sodium Level 142 136-145 mmol/L Potassium Level 3.5 3.5-5.1 mmol/L Chloride Level 104 98-107 mmol/L Carbon Dioxide Level 32 21-32 mmol/L Anion Gap 6.0 3-11 mmol/L Blood Urea Nitrogen 15 7-18 mg/dl Creatinine 0.80 0.60-1.20 mg/dl Est Creatinine Clear Calc Drug Dose 82.7 ml/min Estimated GFR () 86.6 Estimated GFR (Non- 74.7 BUN/Creatinine Ratio 19.0 10-20 Random Glucose 120 70-99 mg/dl Calcium Level 8.2 8.5-10.1 mg/dl Bedside Glucose 128 70-90 mg/dl Assessment & Plan clinically much improved xray improved with resolved SBO will obtain NGT clamp trial now. if passes will d/c NGT and start clears
[2017-01-18] MEDS: FLUTICASONE PROPIONATE NA SPR 16 GM BTL NAE SCH (10:36)
[2017-01-18] MEDS: FLUTICASONE/SALMETEROL 250/50 (ADVAIR) 14 PUFF/1 INHALER INH SCH (10:36)
[2017-01-18] MEDS: LOSARTAN POTASSIUM 25 MG TAB PO SCH (10:38)
[2017-01-18] MEDS: DOCUSATE SODIUM/SENNA 50/8.6MG TAB PO SCH ×2 (10:38→20:21)
[2017-01-18] MEDS: LORAZEPAM INJ 0.5 MG in SYRINGE 0.75 ML IV PRN ×2 (11:13→20:29)
[2017-01-18 14:55] VITALS: BP 119/77; PULSE 72; TEMP 36.8; O2SAT 95
[2017-01-18] MEDS ORDERED: WARFARIN SOD 5 MG TAB PO SCH (16:00)
[2017-01-18] MEDS: DULOXETINE (CYMBALTA) 30 MG CAP PO SCH (20:21)
[2017-01-18] MEDS: GABAPENTIN 100 MG CAP PO SCH (20:22)
[2017-01-18] MEDS: ROSUVASTATIN CALCIUM 10 MG TAB PO SCH (20:23)
[2017-01-18] MEDS: HYDROCODONE/ACETAMOPHEN 5/325MG TAB PO PRN (20:29)
[2017-01-18] MEDS: INSULIN GLARGINE SOLOSTAR 100 UNITS/ML 3 ML PEN SC SCH (21:26)
--- NOTE | 2017-01-18 21:51 | Progress Note ---
Medicine Progress Note Date & Time of Visit: Jan 18, 2017 at 14:50. Subjective 71 yo F with ovarian cancer on chemotherapy admitted with SBO, managed non- operatively with NGT now removed. -denies nausea vomiting after NGT pulled this morning -having BMs yesterday and today -tolerating clears -pain is not present -daughter present and all questions addressed/answered. Objective Last 8 Hrs Date Time Temp Pulse Resp B/P (MAP) Pulse Ox O2 Delivery O2 Flow Rate FiO2 01/18/17 09:22 94 Room Air 01/18/17 08:15 94 Room Air 01/18/17 07:45 36.4 72 14 128/78 (95) 94 Room Air Physical Exam: GEN: WNWD, in no acute distress, alert and appropriate but fatigued and lying in bed HEENT: NC/AT, PERRL, normal sclerae, MMM CARDIO: reg rate, S1/2 heard without m/g/r LUNGS: CTA bilaterally, no crackles, rales or wheezes, good diaphragmatic excursion ABD: soft, TTP in epigastric area, non-distended EXTREMITY: RP and DP palpable 2+ bilat, no LE swelling or edema, extremities are warm and well-perfused NEURO: CN 2-12 grossly intact, no gross focal deficits. MUSC: moves all extremities equally SKIN: warm and dry Laboratory Results: 01/18/17 05:40 Red Blood Count 3.70, Mean Corpuscular Volume 90.0, Mean Corpuscular Hemoglobin 29.2, Mean Corpuscular Hemoglobin Concent 32.4, Mean Platelet Volume 9.8, Neutrophils (%) (Auto) 69.1, Lymphocytes (%) (Auto) 29.4, Monocytes (%) (Auto) 0.3, Eosinophils (%) (Auto) 0.7, Basophils (%) (Auto) 0.2, Neutrophils # (Auto) 4.24, Lymphocytes # (Auto) 1.80, Monocytes # (Auto) 0.02, Eosinophils # (Auto) 0.04, Basophils # (Auto) 0.01 01/18/17 05:40 Test 01/16/17 00:55 01/16/17 23:25 01/18/17 05:40 01/18/17 21:12 Urine Color YELLOW Urine Appearance CLEAR (CLEAR) Urine pH 6.5 (4.5-7.5) Urine Specific [place] 1.019 (1.000-1.030) Urine Protein NEG (NEG) Urine Glucose (UA) NEG (NEG) Urine Ketones TRACE (NEG) Urine Occult Blood NEG (NEG) Urine Nitrite NEG (NEG) Urine Bilirubin NEG (NEG) Urine Urobilinogen NEG (NEG) Urine Leukocyte Esterase TRACE (NEG) Urine WBC (Auto) 5-10 /hpf (0-5) Urine RBC (Auto) 0-4 /hpf (0-4) Urine Hyaline Casts (Auto) 1-5 /lpf (0-5) Urine Epithelial Cells (Auto) >30 /lpf (0-5) Urine Bacteria (Auto) NEG (NEG) Activated Partial Thromboplast Time > 300.0 SECONDS Partial Thromboplastin Ratio > 11.0 Magnesium Level 1.8 mg/dl (1.8-2.4) Total Bilirubin 1.3 mg/dl (0.2-1) Direct Bilirubin 0.2 mg/dl (0-0.2) Aspartate Amino Transf (AST/SGOT) 18 U/L (15-37) Alanine Aminotransferase (ALT/SGPT) 19 U/L (12-78) Alkaline Phosphatase 67 U/L (45-117) Total Protein 7.1 gm/dl (6.4-8.2) Albumin 3.3 gm/dl (3.4-5.0) Lipase 64 U/L (73-393) White Blood Count 6.13 K/uL (4.8-10.8) Red Blood Count 3.70 M/uL (4.2-5.4) Hemoglobin 10.8 g/dL (12.0-16.0) Hematocrit 33.3 % (37-47) Mean Corpuscular Volume 90.0 fL (80-100) Mean Corpuscular Hemoglobin 29.2 pg (25-34) Mean Corpuscular Hemoglobin Concent 32.4 g/dl (32-36) Platelet Count 196 K/uL (130-400) Mean Platelet Volume 9.8 fL (7.4-10.4) Neutrophils (%) (Auto) 69.1 % Lymphocytes (%) (Auto) 29.4 % Monocytes (%) (Auto) 0.3 % Eosinophils (%) (Auto) 0.7 % Basophils (%) (Auto) 0.2 % Neutrophils # (Auto) 4.24 K/uL (1.4-6.5) Lymphocytes # (Auto) 1.80 K/uL (1.2-3.4) Monocytes # (Auto) 0.02 K/uL (0.11-0.59) Eosinophils # (Auto) 0.04 K/uL (0-0.5) Basophils # (Auto) 0.01 K/uL (0-0.2) RDW Standard Deviation 47.7 fL (36.4-46.3) RDW Coefficient of Variation 14.4 % (11.5-14.5) Immature Granulocyte % (Auto) 0.3 % Immature Granulocyte # (Auto) 0.02 K/uL (0.00-0.02) Prothrombin Time 24.5 SECONDS (9.0-12.0) Prothromb Time International Ratio 2.2 (0.9-1.1) Anion Gap 6.0 mmol/L (3-11) Est Creatinine Clear Calc Drug Dose 82.7 ml/min Estimated GFR () 86.6 Estimated GFR (Non- 74.7 BUN/Creatinine Ratio 19.0 (10-20) Calcium Level 8.2 mg/dl (8.5-10.1) Bedside Glucose 168 mg/dl (70-90) Last 24 Hours Test 01/17/17 17:55 01/17/17 23:48 01/18/17 05:40 01/18/17 06:00 Bedside Glucose 116 mg/dl 123 mg/dl 128 mg/dl White Blood Count 6.13 K/uL Red Blood Count 3.70 M/uL Hemoglobin 10.8 g/dL Hematocrit 33.3 % Mean Corpuscular Volume 90.0 fL Mean Corpuscular Hemoglobin 29.2 pg Mean Corpuscular Hemoglobin Concent 32.4 g/dl Platelet Count 196 K/uL Mean Platelet Volume 9.8 fL Neutrophils (%) (Auto) 69.1 % Lymphocytes (%) (Auto) 29.4 % Monocytes (%) (Auto) 0.3 % Eosinophils (%) (Auto) 0.7 % Basophils (%) (Auto) 0.2 % Neutrophils # (Auto) 4.24 K/uL Lymphocytes # (Auto) 1.80 K/uL Monocytes # (Auto) 0.02 K/uL Eosinophils # (Auto) 0.04 K/uL Basophils # (Auto) 0.01 K/uL RDW Standard Deviation 47.7 fL RDW Coefficient of Variation 14.4 % Immature Granulocyte % (Auto) 0.3 % Immature Granulocyte # (Auto) 0.02 K/uL Prothrombin Time 24.5 SECONDS Prothromb Time International Ratio 2.2 Sodium Level 142 mmol/L Potassium Level 3.5 mmol/L Chloride Level 104 mmol/L Carbon Dioxide Level 32 mmol/L Anion Gap 6.0 mmol/L Blood Urea Nitrogen 15 mg/dl Creatinine 0.80 mg/dl Est Creatinine Clear Calc Drug Dose 82.7 ml/min Estimated GFR () 86.6 Estimated GFR (Non- 74.7 BUN/Creatinine Ratio 19.0 Random Glucose 120 mg/dl Calcium Level 8.2 mg/dl Test 01/18/17 11:57 Bedside Glucose 120 mg/dl Assessment & Plan 71 yo F with ovarian cancer on chemotherapy admitted with SBO, managed non- operatively with NGT now removed. 1. SMALL BOWEL OBSTRUCTION: Secondary to adhesions with hx of ovarial carcinoma with peritoneal metastasis. NGT removed successfully today. Tolerating clears. Will slowly advance diet as tolerated. Cont IVF until tolerating solids. -CT abd/pelvis- 1. Evidence of small bowel obstruction with a transition point in the right lower quadrant with suspected adhesions. There is associated tethering of the sigmoid colon without evidence of obstruction at that level. 2. New apparent stenosis of the proximal transverse colon at the site of surgical clips, also suspected adhesions in this region. No delfina evidence of obstruction results. 3. New nodularity in the left upper quadrant and along the anterior abdominal wall is suspicious for recurrent peritoneal metastases. 2. METASTATIC OVARIAN CARCINOMA: S/P abdominal surgery in 2013. Relapsed disease and ongoing chemotherapy. Last chemo was on 01/14/17. Chronic pain likely secondary to this and to leg pain-uses narcotics PRN. Per last ct scan improving tumor burden , but CT scan here- recurrent peritoneal metastasis. 3. HX OF PE: On coumadin - INR 2.2 today and coumadin was restarted. 4. HTN-controlled, cont Cozaar 25mg daily 5. DM-II: on ISS and fingersticks. Although controlled, carb coverage was added as diet advances, and important to cont monitoring at least for one more day. 6. HLP-cont Crestor 5 daily 7. Chronic pain-managed with gabapentin, Cymbalta and PRN hydrocodone. Discussed the possibility of trying Nucynta to avoid constipation. 8. Anemia-likely related to chronic disease, as well as dilution from recent IVF DVT PROPHYLAXIS: coumadin DNR Dispo: PT/OT ordered to ensure she is strong enough to go home-lives with daughter and her . Just finished chemo 4 days ago, so she is expectedly weak at this time. Likely home in next 1-3 days, once she is tolerating food and feeling stronger. [facility] Continued [facility] stay due to: inadequate oral pain control Consultants: Gen Surgery Dr. De Santiago Current Inpatient Medications: Current Inpatient Medications Medications (Trade) Dose Ordered Sig/Alcides Route Start Time Stop Time Status Last Admin Dose Admin Ioversol (Optiray 320) 100 ml UD PRN IV 01/17/17 01:00 01/21/17 00:59 Metoclopramide HCl (Reglan Inj) 10 mg Q6H PRN IV 01/17/17 02:45 02/16/17 02:44 Lactated Ringer's 1,000 ml @ 80 mls/hr [id number] IV 01/17/17 02:45 02/16/17 02:14 01/18/17 03:39 80 MLS/HR Acetaminophen (Tylenol Tab) 650 mg Q4H PRN PO 01/17/17 02:45 02/16/17 02:44 Glucose (Glucose 40% Gel) 15-30 GRAMS 15 GRAMS... UD PRN PO 01/17/17 02:45 02/16/17 02:44 Glucose (Glucose Chew Tab) 4-8 Tablets 4 Tabl... UD PRN PO 01/17/17 02:45 02/16/17 02:44 Dextrose (Dextrose 50% 50ML Syringe) 25-50ML OF 50% DW IV FOR... UD PRN IV 01/17/17 02:45 02/16/17 02:44 Glucagon (Glucagon Inj) 1 mg UD PRN SQ 01/17/17 02:45 02/16/17 02:44 Ondansetron HCl (Zofran Inj) 4 mg Q6H PRN IV 01/17/17 02:45 02/16/17 02:44 Promethazine HCl 12.5 mg/Sodium Chloride 50.5 ml @ 204 mls/hr Q6H PRN IV 01/17/17 02:45 02/16/17 02:44 Duloxetine HCl (Cymbalta Cap) 30 mg QPM PO 01/17/17 21:00 02/16/17 20:59 Salmeterol Xinafoate/ Fluticasone (Advair Diskus 250/50 Inh) 1 puff BID INH 01/17/17 09:00 02/16/17 08:59 Fluticasone Propionate (Flonase Nasal [place]) 2 sprays DAILY SAI 01/17/17 09:00 02/16/17 08:59 Gabapentin (Neurontin Cap) 200 mg QPM PO 01/17/17 21:00 02/16/17 20:59 Future hold Gabapentin (Neurontin Cap) 100 mg QAM PO 01/17/17 09:00 02/16/17 08:59 Future hold 01/17/17 09:39 100 MG Acetaminophen/ Hydrocodone Bitart ([place] 5/325 Tab) 1 tab Q4H PRN PO 01/17/17 02:45 01/31/17 02:44 01/17/17 21:49 1 TAB Levothyroxine Sodium (Synthroid Tab) 75 mcg DAILYBB PO 01/17/17 07:15 02/16/17 07:14 01/18/17 06:02 75 MCG Losartan Potassium (coZAAR TAB) 25 mg DAILY PO 01/17/17 09:00 02/16/17 08:59 01/18/17 10:38 25 MG Rosuvastatin Calcium (Crestor Tab) 5 mg QPM PO 01/17/17 21:00 02/16/17 20:59 01/17/17 21:47 5 MG Polyethylene (Miralax Powder Packet) 17 gm DAILY PRN PO 01/17/17 02:45 02/16/17 02:44 Insulin Glargine (Lantus Solostar Pen) 5 units DAILY SC 01/18/17 09:00 02/17/17 08:59 01/18/17 11:14 5 UNITS Hydromorphone HCl (Dilaudid Inj) 0.5 mg Q3H PRN IV 01/17/17 02:45 01/31/17 02:44 Senna/Docusate Sodium (Senokot S Tab) 1 tab BID PO 01/17/17 09:00 02/16/17 08:59 01/18/17 10:38 1 TAB Lorazepam 0.5 mg/ Syringe 1 ml @ 1 mls/min Q4H PRN IV 01/17/17 06:30 02/16/17 06:29 01/18/17 11:13 1 MLS/MIN Insulin Aspart (novoLOG ASPART) SLIDING SCALE If C... Q6H SC 01/17/17 06:45 02/16/17 06:44 Heparin Sodium (Porcine) (Heparin 100 Unit/ml 5ml Flush) 5 ml PRN PRN FLUSH 01/17/17 07:45 02/16/17 07:44 Menthol (Nice Estevan) 1 estevan PRN PRN PO 01/17/17 13:45 02/16/17 13:44 01/17/17 13:53 1 ESTEVAN Warfarin Sodium (Coumadin Tab) 2.5 mg SuTuWeThSa@1600 PO 01/19/17 16:00 02/18/17 15:59 Warfarin Sodium (Coumadin Tab) 5 mg MoFr@1600 PO 01/21/17 16:00 02/20/17 15:59 Warfarin Sodium (Coumadin Tab) 5 mg TODAY@1600 PO 01/18/17 16:00 01/18/17 18:00
[2017-01-18] MEDS ORDERED: NURSING VERBAL MED ORDER ONE (23:15)
[2017-01-18 23:53] VITALS: BP 112/69; PULSE 72; TEMP 36.8; O2SAT 95
[2017-01-19] MEDS: LACTATED RINGER'S 1000ML 1,000 ML IV SCH (04:44)
[2017-01-19 05:30] LABS: BASO % 0.2 %; BASO ABS # 0.01 K/uL (0-0.2); COMPLETE YES; EOS % 0.7 %; IG% 0.2 %; LYMPH % 35.3 %; LYMPH ABS # 1.93 K/uL (1.2-3.4); MEAN CELL VOLUME 89.4 fL (80-100); MEAN CORPUSCULAR HEMOGLOBIN 28.8 pg (25-34); MEAN CORPUSCULAR HGB CONC 32.2 g/dl (32-36); MONO % 0.4 %; NEUT % 63.2 %; PLATELET COUNT 176 K/uL (130-400); RED BLOOD COUNT 3.58 M/uL (4.2-5.4); WHITE BLOOD COUNT 5.46 K/uL (4.8-10.8)
[2017-01-19 05:38] LABS: PROTHROMBIN TIME (PATIENT) 22.1 SECONDS (9.0-12.0)
[2017-01-19] MEDS: LEVOTHYROXINE 75 MCG TAB PO SCH (05:50)
[2017-01-19 05:56] LABS: BUN/CREATININE RATIO 13.1 (10-20); CREATININE 0.73 mg/dl (0.60-1.20); MAGNESIUM 1.8 mg/dl (1.8-2.4); POTASSIUM 3.6 mmol/L (3.5-5.1)
[2017-01-19 07:47] VITALS: BP 130/92; PULSE 70; TEMP 36.5; O2SAT 96
--- NOTE | 2017-01-19 08:05 | Surgery Progress Note ---
Surgery Progress Note Date of Service Jan 19, 2017. Subjective + feeling well, + bowel movement (2 days ago), + flatus (increased), + diet ( clears) Objective Vital Signs: Date Time Temp Pulse Resp B/P (MAP) Pulse Ox O2 Delivery O2 Flow Rate FiO2 01/19/17 07:47 36.5 70 14 130/92 (105) 96 Room Air 01/18/17 23:53 36.8 72 16 112/69 (83) 95 Room Air 01/18/17 23:45 Room Air 01/18/17 15:15 Room Air 01/18/17 14:55 36.8 72 17 119/77 (91) 95 Room Air 01/18/17 09:22 94 Room Air 01/18/17 08:15 94 Room Air Abdomen: non tender, non distended, soft Laboratory Results: Results Past 24 Hours Test 01/18/17 11:57 01/18/17 17:53 01/18/17 21:12 01/19/17 05:15 Range/Units Bedside Glucose 120 108 168 70-90 mg/dl White Blood Count 5.46 4.8-10.8 K/uL Red Blood Count 3.58 4.2-5.4 M/uL Hemoglobin 10.3 12.0-16.0 g/dL Hematocrit 32.0 37-47 % Mean Corpuscular Volume 89.4 80-100 fL Mean Corpuscular Hemoglobin 28.8 25-34 pg Mean Corpuscular Hemoglobin Concent 32.2 32-36 g/dl Platelet Count 176 130-400 K/uL Mean Platelet Volume 10.0 7.4-10.4 fL Neutrophils (%) (Auto) 63.2 % Lymphocytes (%) (Auto) 35.3 % Monocytes (%) (Auto) 0.4 % Eosinophils (%) (Auto) 0.7 % Basophils (%) (Auto) 0.2 % Neutrophils # (Auto) 3.45 1.4-6.5 K/uL Lymphocytes # (Auto) 1.93 1.2-3.4 K/uL Monocytes # (Auto) 0.02 0.11-0.59 K/uL Eosinophils # (Auto) 0.04 0-0.5 K/uL Basophils # (Auto) 0.01 0-0.2 K/uL RDW Standard Deviation 47.4 36.4-46.3 fL RDW Coefficient of Variation 14.3 11.5-14.5 % Immature Granulocyte % (Auto) 0.2 % Immature Granulocyte # (Auto) 0.01 0.00-0.02 K/uL Prothrombin Time 22.1 9.0-12.0 SECONDS Prothromb Time International Ratio 2.0 0.9-1.1 Sodium Level 143 136-145 mmol/L Potassium Level 3.6 3.5-5.1 mmol/L Chloride Level 108 98-107 mmol/L Carbon Dioxide Level 31 21-32 mmol/L Anion Gap 4.0 3-11 mmol/L Blood Urea Nitrogen 10 7-18 mg/dl Creatinine 0.73 0.60-1.20 mg/dl Est Creatinine Clear Calc Drug Dose 90.7 ml/min Estimated GFR () 96.7 Estimated GFR (Non- 83.4 BUN/Creatinine Ratio 13.1 10-20 Random Glucose 121 70-99 mg/dl Calcium Level 8.0 8.5-10.1 mg/dl Magnesium Level 1.8 1.8-2.4 mg/dl Assessment & Plan PSBO will begin soft diet d/c per primary if tolerating diet
[2017-01-19 08:51] VITALS: O2SAT 96
[2017-01-19] MEDS ORDERED: MAGNESIUM SULFATE 1GM / D5W 1 GM in PREMIXED IN D5W 100 ML IV SCH (09:00)
[2017-01-19] MEDS: FLUTICASONE PROPIONATE NA SPR 16 GM BTL NAE SCH (09:00)
[2017-01-19] MEDS: DOCUSATE SODIUM/SENNA 50/8.6MG TAB PO SCH ×2 (09:14→21:36)
[2017-01-19] MEDS: GABAPENTIN 100 MG CAP PO SCH ×2 (09:15→21:37)
[2017-01-19] MEDS: LOSARTAN POTASSIUM 25 MG TAB PO SCH (09:16)
[2017-01-19] MEDS: INSULIN ASPART 100 UNITS/ML 3 ML PEN SC SCH ×4 (09:26→21:35)
[2017-01-19] MEDS ORDERED: NURSING VERBAL MED ORDER ONE (15:00)
[2017-01-19 15:21] VITALS: BP 111/71; PULSE 73; TEMP 36.8; O2SAT 95
[2017-01-19] MEDS ORDERED: WARFARIN SOD 2.5 MG TAB PO SCH (16:00)
[2017-01-19] MEDS ORDERED: TAPENTADOL HCL 50 MG TAB PO PRN (16:15)
--- NOTE | 2017-01-19 21:01 | Progress Note ---
Medicine Progress Note Date & Time of Visit: Jan 19, 2017 at 1500. Subjective 71 yo F with ovarian cancer on chemotherapy admitted with SBO, managed non- operatively with NGT now removed. -reports having more energy today -abdominal discomfort improved -tolerating solid foods -ambulating -nocturnal leg cramps discussed -denies CP, SOB, nausea, vomiting. -no BM yet today. Objective Last 8 Hrs Date Time Temp Pulse Resp B/P (MAP) Pulse Ox O2 Delivery O2 Flow Rate FiO2 01/19/17 15:21 36.8 73 18 111/71 (84) 95 Room Air 01/19/17 15:20 Room Air 01/19/17 09:30 Room Air Physical Exam: GEN: WNWD, in no acute distress, alert and appropriate HEENT: NC/AT, pupils are equal and round bilaterally, normal sclerae, MMM CARDIO: reg rate, S1/2 heard without m/g/r CHEST: port in place on L anterior chest wall-covered with Tegaderm-c/d/i ( Accessed) LUNGS: CTA bilaterally, no crackles, rales or wheezes, good diaphragmatic excursion ABD: soft, non-tender, non-distended, +BS EXTREMITY: RP and DP palpable 2+ bilat, no LE swelling or edema, extremities are warm and well-perfused NEURO: CN 2-12 grossly intact, no gross focal deficits. MUSC: moves all extremities equally SKIN: warm and dry Laboratory Results: 01/19/17 05:15 Red Blood Count 3.58, Mean Corpuscular Volume 89.4, Mean Corpuscular Hemoglobin 28.8, Mean Corpuscular Hemoglobin Concent 32.2, Mean Platelet Volume 10.0, Neutrophils (%) (Auto) 63.2, Lymphocytes (%) (Auto) 35.3, Monocytes (%) (Auto) 0.4, Eosinophils (%) (Auto) 0.7, Basophils (%) (Auto) 0.2, Neutrophils # (Auto) 3.45, Lymphocytes # (Auto) 1.93, Monocytes # (Auto) 0.02, Eosinophils # (Auto) 0.04, Basophils # (Auto) 0.01 01/19/17 05:15 Test 01/16/17 00:55 01/16/17 23:25 01/19/17 05:15 7/26/17 20:31 Urine Color YELLOW Urine Appearance CLEAR (CLEAR) Urine pH 6.5 (4.5-7.5) Urine Specific [place] 1.019 (1.000-1.030) Urine Protein NEG (NEG) Urine Glucose (UA) NEG (NEG) Urine Ketones TRACE (NEG) Urine Occult Blood NEG (NEG) Urine Nitrite NEG (NEG) Urine Bilirubin NEG (NEG) Urine Urobilinogen NEG (NEG) Urine Leukocyte Esterase TRACE (NEG) Urine WBC (Auto) 5-10 /hpf (0-5) Urine RBC (Auto) 0-4 /hpf (0-4) Urine Hyaline Casts (Auto) 1-5 /lpf (0-5) Urine Epithelial Cells (Auto) >30 /lpf (0-5) Urine Bacteria (Auto) NEG (NEG) Activated Partial Thromboplast Time > 300.0 SECONDS Partial Thromboplastin Ratio > 11.0 Total Bilirubin 1.3 mg/dl (0.2-1) Direct Bilirubin 0.2 mg/dl (0-0.2) Aspartate Amino Transf (AST/SGOT) 18 U/L (15-37) Alanine Aminotransferase (ALT/SGPT) 19 U/L (12-78) Alkaline Phosphatase 67 U/L (45-117) Total Protein 7.1 gm/dl (6.4-8.2) Albumin 3.3 gm/dl (3.4-5.0) Lipase 64 U/L (73-393) White Blood Count 5.46 K/uL (4.8-10.8) Red Blood Count 3.58 M/uL (4.2-5.4) Hemoglobin 10.3 g/dL (12.0-16.0) Hematocrit 32.0 % (37-47) Mean Corpuscular Volume 89.4 fL (80-100) Mean Corpuscular Hemoglobin 28.8 pg (25-34) Mean Corpuscular Hemoglobin Concent 32.2 g/dl (32-36) Platelet Count 176 K/uL (130-400) Mean Platelet Volume 10.0 fL (7.4-10.4) Neutrophils (%) (Auto) 63.2 % Lymphocytes (%) (Auto) 35.3 % Monocytes (%) (Auto) 0.4 % Eosinophils (%) (Auto) 0.7 % Basophils (%) (Auto) 0.2 % Neutrophils # (Auto) 3.45 K/uL (1.4-6.5) Lymphocytes # (Auto) 1.93 K/uL (1.2-3.4) Monocytes # (Auto) 0.02 K/uL (0.11-0.59) Eosinophils # (Auto) 0.04 K/uL (0-0.5) Basophils # (Auto) 0.01 K/uL (0-0.2) RDW Standard Deviation 47.4 fL (36.4-46.3) RDW Coefficient of Variation 14.3 % (11.5-14.5) Immature Granulocyte % (Auto) 0.2 % Immature Granulocyte # (Auto) 0.01 K/uL (0.00-0.02) Prothrombin Time 22.1 SECONDS (9.0-12.0) Prothromb Time International Ratio 2.0 (0.9-1.1) Anion Gap 4.0 mmol/L (3-11) Est Creatinine Clear Calc Drug Dose 90.7 ml/min Estimated GFR () 96.7 Estimated GFR (Non- 83.4 BUN/Creatinine Ratio 13.1 (10-20) Calcium Level 8.0 mg/dl (8.5-10.1) Magnesium Level 1.8 mg/dl (1.8-2.4) Bedside Glucose 204 mg/dl (70-90) Last 24 Hours Test 01/18/17 17:53 01/18/17 21:12 01/19/17 05:15 01/19/17 07:55 Bedside Glucose 108 mg/dl 168 mg/dl 130 mg/dl White Blood Count 5.46 K/uL Red Blood Count 3.58 M/uL Hemoglobin 10.3 g/dL Hematocrit 32.0 % Mean Corpuscular Volume 89.4 fL Mean Corpuscular Hemoglobin 28.8 pg Mean Corpuscular Hemoglobin Concent 32.2 g/dl Platelet Count 176 K/uL Mean Platelet Volume 10.0 fL Neutrophils (%) (Auto) 63.2 % Lymphocytes (%) (Auto) 35.3 % Monocytes (%) (Auto) 0.4 % Eosinophils (%) (Auto) 0.7 % Basophils (%) (Auto) 0.2 % Neutrophils # (Auto) 3.45 K/uL Lymphocytes # (Auto) 1.93 K/uL Monocytes # (Auto) 0.02 K/uL Eosinophils # (Auto) 0.04 K/uL Basophils # (Auto) 0.01 K/uL RDW Standard Deviation 47.4 fL RDW Coefficient of Variation 14.3 % Immature Granulocyte % (Auto) 0.2 % Immature Granulocyte # (Auto) 0.01 K/uL Prothrombin Time 22.1 SECONDS Prothromb Time International Ratio 2.0 Sodium Level 143 mmol/L Potassium Level 3.6 mmol/L Chloride Level 108 mmol/L Carbon Dioxide Level 31 mmol/L Anion Gap 4.0 mmol/L Blood Urea Nitrogen 10 mg/dl Creatinine 0.73 mg/dl Est Creatinine Clear Calc Drug Dose 90.7 ml/min Estimated GFR () 96.7 Estimated GFR (Non- 83.4 BUN/Creatinine Ratio 13.1 Random Glucose 121 mg/dl Calcium Level 8.0 mg/dl Magnesium Level 1.8 mg/dl Test 01/19/17 11:57 01/19/17 17:14 Bedside Glucose 117 mg/dl 106 mg/dl Assessment & Plan 71 yo F with ovarian cancer on chemotherapy admitted with SBO, managed non- operatively with NGT now removed. 1. SMALL BOWEL OBSTRUCTION: Secondary to adhesions with hx of ovarial carcinoma with peritoneal metastasis. NGT removed successfully 01/18. Tolerating solid food. IVF stopped. Cont ambulating as tolerated. Likely dc in am. 2. METASTATIC OVARIAN CARCINOMA: S/P abdominal surgery in 2013. Relapsed disease and ongoing chemotherapy. Last chemo was on 01/14/17. Chronic pain likely secondary to this and to leg pain-uses narcotics PRN. Per last ct scan improving tumor burden , but CT scan here: -CT abd/pelvis- 1. Evidence of small bowel obstruction with a transition point in the right lower quadrant with suspected adhesions. There is associated tethering of the sigmoid colon without evidence of obstruction at that level. 2. New apparent stenosis of the proximal transverse colon at the site of surgical clips, also suspected adhesions in this region. No delfina evidence of obstruction results. 3. New nodularity in the left upper quadrant and along the anterior abdominal wall is suspicious for recurrent peritoneal metastases. 3. HX OF PE: On coumadin - INR 2.0, cont current dose 4. HTN-controlled, cont Cozaar 25mg daily 5. DM-II: on ISS and fingersticks. Controlled/at goal 6. HLP-cont Crestor 5 daily 7. Chronic pain-managed with gabapentin, Cymbalta and PRN hydrocodone. Discussed the possibility of trying Nucynta to avoid constipation. Started this in lieu of hydrocodone for less negative side effects on bowels. 8. Nocturnal leg cramps/pain-many possible etiologies discussed today including iron deficiency, vitamin def, chemo effect, worsening osteoporosis, etc. Therapies considered with patient and daughter include things like increased gabapentin at night, Requip, Mg or K supplementation, or Benadryl PRN. Will order initial labwork for reversible causes. 9. Anemia-likely related to chronic disease, as well as dilution from recent IVF DVT PROPHYLAXIS: coumadin DNR Dispo: Cleared by PT for home and patient appears stronger today with more energy. Likely dc in am. DO [facility] Continued [facility] stay due to: inadequate oral pain control Consultants: Gen Surgery Dr. De Santiago Current Inpatient Medications: Current Inpatient Medications Medications (Trade) Dose Ordered Sig/Alcides Route Start Time Stop Time Status Last Admin Dose Admin Ioversol (Optiray 320) 100 ml UD PRN IV 01/17/17 01:00 01/21/17 00:59 Acetaminophen (Tylenol Tab) 650 mg Q4H PRN PO 01/17/17 02:45 02/16/17 02:44 Glucose (Glucose 40% Gel) 15-30 GRAMS 15 GRAMS... UD PRN PO 01/17/17 02:45 02/16/17 02:44 Glucose (Glucose Chew Tab) 4-8 Tablets 4 Tabl... UD PRN PO 01/17/17 02:45 02/16/17 02:44 Dextrose (Dextrose 50% 50ML Syringe) 25-50ML OF 50% DW IV FOR... UD PRN IV 01/17/17 02:45 02/16/17 02:44 Glucagon (Glucagon Inj) 1 mg UD PRN SQ 01/17/17 02:45 02/16/17 02:44 Ondansetron HCl (Zofran Inj) 4 mg Q6H PRN IV 01/17/17 02:45 02/16/17 02:44 Promethazine HCl 12.5 mg/Sodium Chloride 50.5 ml @ 204 mls/hr Q6H PRN IV 01/17/17 02:45 02/16/17 02:44 Duloxetine HCl (Cymbalta Cap) 30 mg QPM PO 01/17/17 21:00 02/16/17 20:59 01/18/17 20:21 30 MG Fluticasone Propionate (Flonase Nasal [place]) 2 sprays DAILY SAI 01/17/17 09:00 02/16/17 08:59 Gabapentin (Neurontin Cap) 200 mg QPM PO 01/17/17 21:00 02/16/17 20:59 Future hold 01/18/17 20:22 200 MG Gabapentin (Neurontin Cap) 100 mg QAM PO 01/17/17 09:00 02/16/17 08:59 Future hold 01/19/17 09:15 100 MG Levothyroxine Sodium (Synthroid Tab) 75 mcg DAILYBB PO 01/17/17 07:15 02/16/17 07:14 01/19/17 05:50 75 MCG Losartan Potassium (coZAAR TAB) 25 mg DAILY PO 01/17/17 09:00 02/16/17 08:59 01/19/17 09:16 25 MG Rosuvastatin Calcium (Crestor Tab) 5 mg QPM PO 01/17/17 21:00 02/16/17 20:59 01/18/17 20:23 5 MG Polyethylene (Miralax Powder Packet) 17 gm DAILY PRN PO 01/17/17 02:45 02/16/17 02:44 Senna/Docusate Sodium (Senokot S Tab) 1 tab BID PO 01/17/17 09:00 02/16/17 08:59 01/19/17 09:14 1 TAB Lorazepam 0.5 mg/ Syringe 1 ml @ 1 mls/min Q4H PRN IV 01/17/17 06:30 02/16/17 06:29 01/18/17 20:29 1 MLS/MIN Heparin Sodium (Porcine) (Heparin 100 Unit/ml 5ml Flush) 5 ml PRN PRN FLUSH 01/17/17 07:45 02/16/17 07:44 01/19/17 15:18 5 ML Menthol (Nice Estevan) 1 estevan PRN PRN PO 01/17/17 13:45 02/16/17 13:44 01/17/17 13:53 1 ESTEVAN Warfarin Sodium (Coumadin Tab) 2.5 mg SuTuWeThSa@1600 PO 01/19/17 16:00 02/18/17 15:59 01/19/17 15:19 2.5 MG Warfarin Sodium (Coumadin Tab) 5 mg MoFr@1600 PO 01/21/17 16:00 02/20/17 15:59 Insulin Glargine (Lantus Solostar Pen) 5 units HS SC 01/18/17 21:00 02/17/17 20:59 01/18/17 21:26 5 UNITS Insulin Aspart (novoLOG ASPART) SLIDING SCALE If C... ACHS SC 01/19/17 08:00 02/18/17 07:59 01/19/17 13:03 4 UNITS Tapentadol (Nucynta Tab) 50 mg Q4H PRN PO 01/19/17 16:15 02/18/17 16:14
[2017-01-19] MEDS: INSULIN GLARGINE SOLOSTAR 100 UNITS/ML 3 ML PEN SC SCH (21:34)
[2017-01-19] MEDS: DULOXETINE (CYMBALTA) 30 MG CAP PO SCH (21:36)
[2017-01-19] MEDS: ROSUVASTATIN CALCIUM 10 MG TAB PO SCH (21:39)
[2017-01-19] MEDS: LORAZEPAM INJ 0.5 MG in SYRINGE 0.75 ML IV PRN (21:40)
[2017-01-19 23:06] VITALS: BP 113/70; PULSE 63; TEMP 36.7; O2SAT 95
[2017-01-20] MEDS: LEVOTHYROXINE 75 MCG TAB PO SCH (05:25)
[2017-01-20 05:56] LABS: BASO % 0.2 %; BASO ABS # 0.01 K/uL (0-0.2); COMPLETE YES; EOS % 2.4 %; HEMATOCRIT 30.6 % (37-47); IG% 0.5 %; LYMPH % 41.5 %; LYMPH ABS # 1.74 K/uL (1.2-3.4); MEAN CELL VOLUME 89.2 fL (80-100); MEAN CORPUSCULAR HEMOGLOBIN 28.9 pg (25-34); MEAN CORPUSCULAR HGB CONC 32.4 g/dl (32-36); MEAN PLATELET VOLUME 10.1 fL (7.4-10.4); MONO % 1.2 %; NEUT % 54.2 %; PLATELET COUNT 187 K/uL (130-400); RED BLOOD COUNT 3.43 M/uL (4.2-5.4); WHITE BLOOD COUNT 4.19 K/uL (4.8-10.8)
[2017-01-20 06:06] LABS: INR 2.2 (0.9-1.1); PROTHROMBIN TIME (PATIENT) 23.9 SECONDS (9.0-12.0)
[2017-01-20 06:23] LABS: BUN/CREATININE RATIO 12.9 (10-20); CALCIUM 7.9 mg/dl (8.5-10.1); CREATININE 0.83 mg/dl (0.60-1.20); MAGNESIUM 1.8 mg/dl (1.8-2.4); POTASSIUM 3.7 mmol/L (3.5-5.1)
[2017-01-20 06:34] LABS: FERRITIN 382.8 ng/ml (8.0-388.0); THYROID STIMULATING HORMONE 2.97 uIu/ml (0.300-4.500)
[2017-01-20 07:30] VITALS: BP 128/84; PULSE 64; TEMP 36.7; O2SAT 95
[2017-01-20] MEDS: FLUTICASONE PROPIONATE NA SPR 16 GM BTL NAE SCH (08:58)
[2017-01-20] MEDS: LOSARTAN POTASSIUM 25 MG TAB PO SCH (09:00)
[2017-01-20] MEDS: DOCUSATE SODIUM/SENNA 50/8.6MG TAB PO SCH (09:00)
[2017-01-20] MEDS: GABAPENTIN 100 MG CAP PO SCH (09:00)
[2017-01-20] MEDS: INSULIN ASPART 100 UNITS/ML 3 ML PEN SC SCH ×2 (09:03→12:47)
[2017-01-20 09:08] VITALS: O2SAT 95
--- NOTE | 2017-01-20 09:36 | Surgery Progress Note ---
Surgery Progress Note Date of Service Jan 20, 2017. Subjective + feeling well, + ambulating, + bowel movement, No complaints, No nausea, No vomiting Patient sitting up in bed- no complaints, no new concerns. Ready for discharge today. Objective Vital Signs: Date Time Temp Pulse Resp B/P (MAP) Pulse Ox O2 Delivery O2 Flow Rate FiO2 01/20/17 09:08 95 Room Air 01/20/17 08:06 Room Air 01/20/17 07:30 36.7 64 16 128/84 (99) 95 Room Air 01/20/17 00:00 Room Air 01/19/17 23:06 36.7 63 16 113/70 (84) 95 Room Air 01/19/17 15:21 36.8 73 18 111/71 (84) 95 Room Air 01/19/17 15:20 Room Air General Appearance: WD/WN, no apparent distress Abdomen: non distended, soft Laboratory Results: Results Past 24 Hours Test 01/19/17 11:57 01/19/17 17:14 01/19/17 20:31 01/20/17 05:27 Range/Units Bedside Glucose 117 106 204 70-90 mg/dl White Blood Count 4.19 4.8-10.8 K/uL Red Blood Count 3.43 4.2-5.4 M/uL Hemoglobin 9.9 12.0-16.0 g/dL Hematocrit 30.6 37-47 % Mean Corpuscular Volume 89.2 80-100 fL Mean Corpuscular Hemoglobin 28.9 25-34 pg Mean Corpuscular Hemoglobin Concent 32.4 32-36 g/dl Platelet Count 187 130-400 K/uL Mean Platelet Volume 10.1 7.4-10.4 fL Neutrophils (%) (Auto) 54.2 % Lymphocytes (%) (Auto) 41.5 % Monocytes (%) (Auto) 1.2 % Eosinophils (%) (Auto) 2.4 % Basophils (%) (Auto) 0.2 % Neutrophils # (Auto) 2.27 1.4-6.5 K/uL Lymphocytes # (Auto) 1.74 1.2-3.4 K/uL Monocytes # (Auto) 0.05 0.11-0.59 K/uL Eosinophils # (Auto) 0.10 0-0.5 K/uL Basophils # (Auto) 0.01 0-0.2 K/uL RDW Standard Deviation 47.0 36.4-46.3 fL RDW Coefficient of Variation 14.3 11.5-14.5 % Immature Granulocyte % (Auto) 0.5 % Immature Granulocyte # (Auto) 0.02 0.00-0.02 K/uL Prothrombin Time 23.9 9.0-12.0 SECONDS Prothromb Time International Ratio 2.2 0.9-1.1 Sodium Level 142 136-145 mmol/L Potassium Level 3.7 3.5-5.1 mmol/L Chloride Level 107 98-107 mmol/L Carbon Dioxide Level 30 21-32 mmol/L Anion Gap 5.0 3-11 mmol/L Blood Urea Nitrogen 11 7-18 mg/dl Creatinine 0.83 0.60-1.20 mg/dl Est Creatinine Clear Calc Drug Dose 79.7 ml/min Estimated GFR () 82.8 Estimated GFR (Non- 71.4 BUN/Creatinine Ratio 12.9 10-20 Random Glucose 124 70-99 mg/dl Calcium Level 7.9 8.5-10.1 mg/dl Magnesium Level 1.8 1.8-2.4 mg/dl Iron Level 38 35-150 mcg/dl Total Iron Binding Capacity 245 250-450 mcg/dl Ferritin 382.8 8.0-388.0 ng/ml Thyroid Stimulating Hormone (TSH) 2.970 0.300-4.500 uIu/ml Assessment & Plan PSBO- Dr. De Santiago in to see and examine patient. Patient tolerating diet. No nausea. +BM Patient ready for discharge today. as above. doing well. ok for d/c
[2017-01-20] MEDS ORDERED: ERGOCALCIFEROL 50,000 INTER.UNIT CAP PO SCH (11:00)
[2017-01-20] MEDS ORDERED: MGNO400 PO (11:20)
[2017-01-20] MEDS ORDERED: CALC500C70 PO (11:20)
[2017-01-20] MEDS ORDERED: ERGO1CAP41 PO (11:20)
[2017-01-20] MEDS ORDERED: NCY50 PO (11:20)
--- NOTE | 2017-01-20 11:37 | Discharge Instructions ---
Discharge Instructions Date of Service Jan 20, 2017. Admission Reason for Admission: SBO Discharge Discharge Diagnosis / Problem: SBO, ovarian cancer Discharge Goals Goal(s): Prevent Disease Progression Activity Recommendations Activity Limitations: per Instructions/Follow-up section . Instructions / Follow-Up Instructions / Follow-Up Please take/stop all medications as instructed below. New prescriptions have been electronically sent to your preferred pharmacy on file. You had a CT scan of your abdomen and pelvis while in the hospital which revealed "new nodularity in the left upper quadrant and along the anterior abdominal wall is suspicious for recurrent peritoneal metastases." This should be discussed with Dr. Skyla Garvey as soon as possible. A copy of the discharge summary will be sent to her. You have an appointment with Dr. Marcelina Uriarte for follow-up from this hospitalization on 01/24 @12:45pm. Please bring all paperwork with you to this appointment. You vitamin D was found to be low, which may be contributing to your nocturnal leg pain. You have been provided with a D2 (ergocalciferol) supplement to take once a week for 12 weeks, then stop. It is also recommended that you take a Calcium/D3 supplement twice daily for good bone health. This can be taken indefinitely and in conjunction with the other D2 supplement. Your INR (coumadin level) is therapeutic today. You will need to resume routine monitoring with the coumadin clinic within 1 week of discharge. It was a pleasure taking care of you! Call if you have any questions or problems. You can reach a [facility] hospitalist on duty at [facility] 24 hours a day by calling [phone]. Take care of yourself. Genie Soliz DO [facility] Hospitalist Current Hospital Diet Patient's current hospital diet: Diabetes Type 2 Diet Discharge Diet Recommended Diet: Diabetes Type 2 Diet Procedures Procedures Performed: NGT placement/removal Pending Studies Studies pending at discharge: no Medical Emergencies . Who to Call and When: Medical Emergencies: If at any time you feel your situation is an emergency, please call 911 immediately. . Non-Emergent Contact Non-Emergency issues call your: Primary Care Provider, Oncologist . . "Provider Documentation" section prepared by Genie Soliz. . VTE Core Measure Inpt VTE Proph given/why not?: Warfarin (Coumadin) [place] Drug Monitoring Program Search Results: patient reviewed within database, no issues identified
--- NOTE | 2017-01-20 11:40 | Discharge Summary ---
Discharge Summary Date of Service Jan 20, 2017. Discharge Summary Admission Date: Jan 17, 2017 at 02:21 Discharge Date: Jan 20, 2017 Discharge Disposition: Home Principal Diagnosis: SBO MEtastatic Ovarian Cancer h/o PE HTN DMII Hyperlipidemia Chronic pain Nocturnal leg cramps Anemia Vitamin D deficiency Procedures: NGT placement/removal Vaccinations: None. Consultations: Gen Surgery Dr. De Santiago Pending Studies/Follow-Up: see instructions below Medication Reconciliation New Medications: Calcium/Vitamin D (Os-Yao 500 Plus D) Tab 1 TAB PO BID for 30 Days, #60 TAB 3 Refills Ergocalciferol (Vitamin D 59623 Unit) 50,000 Unit Cap 03696 INTERUNIT PO Q7D@1100 for 90 Days, #12 CAP Take once weekly for 12 weeks. Magnesium Oxide (Magnesium-Oxide) 400 Mg Tab 400 MG PO HS for 30 Days, #30 TAB 1 Refill Tapentadol HCl (Nucynta) 50 Mg Tab 50 MG PO Q4H PRN for Pain for 30 Days, #60 TAB 0 Refills Continued Medications: Albuterol Hfa (Ventolin Hfa) 200 Puffs/61929 Mcg Aers 2 PUFFS INH Q4 PRN for Wheezing Benzonatate (Tessalon Perles) 200 Mg Cap 200 MG PO TID PRN for Cough, CAP Dexamethasone (Decadron) 4 Mg Tab 4 MG PO UD take 5 pills the night before and the morning of chemotherapy Duloxetine HCl (Cymbalta) 30 Mg Cap 30 MG PO QPM for 30 Days, CAP 2 Refills do not crush Fluticasone Prop/Salmeterol (Advair Diskus 250/50 60 Dose) 1 Ea Aerp 1 PUFF PO BID Fluticasone Propionate (Nasal) (Flonase Allergy Relief) 50 Mcg/Act Spr 2 SPRAYS SAI DAILY Gabapentin (Gabapentin) 100 Mg Cap 200 MG PO QPM Gabapentin (Neurontin) 100 Mg Cap 100 MG PO QAM Glimepiride (Glimepiride) 1 Mg Tab 1 MG PO UD Levothyroxine Sodium (Levothyroxine Sodium) 75 Mcg Tab 75 MCG PO QAM Lorazepam (Ativan) 0.5 Mg Tab 0.5 MG PO Q4 PRN for Anxiety Losartan Potassium (Losartan Potassium) 25 Mg Tab 25 MG PO DAILY Metformin Hcl Er (Glucophage Er) 500 Mg Tab 500 MG PO DAILY Ondansetron (Ondansetron HCl) 8 Mg Tab 8 MG PO Q8 PRN for Nausea Polyethylene Glycol 3350 (Miralax) 1 Pow Pow 17 GM PO DAILY PRN for Constipation Promethazine HCl (Promethazine HCl) 25 Mg Tab 25 MG PO Q4 PRN for Nausea Ranitidine HCl (Ranitidine HCl) 150 Mg Tab 150 MG PO UD take 1 tab twice a day for 5 days prior to chemotherapy Rosuvastatin Calcium (Crestor) 5 Mg Tab 5 MG PO QPM, TAB Triamterene/Hctz (Triamterene/Hctz 37.5-25MG) 1 Tab Tab 1 TAB PO QAM, TAB Warfarin Sod (Coumadin) 2.5 Mg Tab 2.5 MG PO 5XWK take daily on ,tue,,tue,sundays Warfarin Sod (Coumadin) 2.5 Mg Tab 5 MG PO 2XWK take 2 tablets daily on mondays & fridays Discontinued Medications: Coenzyme Q10 (Ubidecarenone) (Coq10) 100 Mg Cap 100 MG PO QPM Cranberry-Vitamin C-Vitamin E (Cranberry Concentrate) 1 Cap Cap 200 MG PO UD Hydrocodone/Acetaminophen 5MG/325MG ([place] 5MG/325MG) Tab 1 TABLET PO Q4 for Mild Pain Admission Information HPI (per Admitting provider): HISTORY OF PRESENT ILLNESS: History obtained from patient, patient's daughter, records. Medical history significant for recurrent ovarian cancer status post surgery, ongoing chemotherapy, hypertension, hyperlipidemia, diabetes type 2 on oral meds, pulmonary embolism on anticoagulation. Recent confinement January 2014 for bilateral pulmonary embolism. Patient discharged on Coumadin. Patient found to have ovarian cancer in 2013, subsequently underwent surgery at [facility] (hysterectomy, partial removal of colon/colostomy, pelvic cancer resection, bilateral salpingo-oophorectomy). Relapse noted a year after surgery. Patient underwent chemotherapy. Recurrent disease discovered September of this year. Chemotherapy started. CT of abdomen and pelvis done last week showed significant decrease in size of prior multiple peritoneal mets; decreasing CA 125 as well on lab work. Last few days, patient noted left-sided achy abdominal pain with nausea and constipation. Outpatient UA normal. Last night patient had worsening abdominal pain with nausea and vomiting. No fever, no chills. Patient was brought to the Emergency Room by daughter. Physical Exam (per Admitting): PHYSICAL EXAMINATION: VITAL SIGNS: Blood pressure was noted to be 150/81, pulse rate 55, respiratory rate 18, temperature 36.6, sats 98 on room air. GENERAL: Noted to be uncomfortable. No respiratory distress. SKIN: Normal color. HEENT: Alopecia. [place] palpebral conjunctivae. Dry mucosa. NECK: Short neck. LUNGS: Decreased breath sounds. HEART: Bradycardic. ABDOMEN: Some distention and tenderness in the left. EXTREMITIES: codi LE edema, no tenderness. NEUROLOGIC: No gross focality. Hospital Course 71 yo F with ovarian cancer on chemotherapy admitted with SBO, managed non- operatively with NGT now removed. 1. SMALL BOWEL OBSTRUCTION: Secondary to adhesions with hx of ovarial carcinoma with peritoneal metastasis. NGT removed successfully 01/18. Tolerating solid food. IVF stopped. Cont ambulating as tolerated. Likely dc in am. 2. METASTATIC OVARIAN CARCINOMA: S/P abdominal surgery in 2013. Relapsed disease and ongoing chemotherapy. Last chemo was on 01/14/17. Chronic pain likely secondary to this and to leg pain-uses narcotics PRN. Per last ct scan improving tumor burden , but CT scan here: -CT abd/pelvis- 1. Evidence of small bowel obstruction with a transition point in the right lower quadrant with suspected adhesions. There is associated tethering of the sigmoid colon without evidence of obstruction at that level. 2. New apparent stenosis of the proximal transverse colon at the site of surgical clips, also suspected adhesions in this region. No delfina evidence of obstruction results. 3. New nodularity in the left upper quadrant and along the anterior abdominal wall is suspicious for recurrent peritoneal metastases. 3. HX OF PE: On coumadin - INR 2.0, cont current dose 4. HTN-controlled, cont Cozaar 25mg daily 5. DM-II: on ISS and fingersticks. Controlled/at goal 6. HLP-cont Crestor 5 daily 7. Chronic pain-managed with gabapentin, Cymbalta and PRN hydrocodone. Discussed the possibility of trying Nucynta to avoid constipation. Started this in lieu of hydrocodone for less negative side effects on bowels. 8. Nocturnal leg cramps/pain-many possible etiologies discussed today including iron deficiency, vitamin def, chemo effect, worsening osteoporosis, etc. Therapies considered with patient and daughter include things like increased gabapentin at night, Requip, Mg or K supplementation, or Benadryl PRN. Will order initial labwork for reversible causes. 9. Anemia-likely related to chronic disease, as well as dilution from recent IVF DVT PROPHYLAXIS: coumadin DNR Dispo: Cleared by PT for home and patient appears stronger today with more energy. At discharge she was hemodynamically stable but in guarded condition because of her active cancer. She was tolerating regular solid foods without issue and was ambulating and mentating at baseline. Close follow-up was arranged with PCP prior to discharge. Genie Soliz DO [facility] Hospitalist Total time spent on discharge = 60 minutes This includes examination of the patient, discharge planning, medication reconciliation, and communication with other providers. Discharge Instructions Discharge Instructions Date of Service Jan 20, 2017. Admission Reason for Admission: SBO Discharge Discharge Diagnosis / Problem: SBO, ovarian cancer Discharge Goals Goal(s): Prevent Disease Progression Activity Recommendations Activity Limitations: per Instructions/Follow-up section . Instructions / Follow-Up Instructions / Follow-Up Please take/stop all medications as instructed below. New prescriptions have been electronically sent to your preferred pharmacy on file. You had a CT scan of your abdomen and pelvis while in the hospital which revealed "new nodularity in the left upper quadrant and along the anterior abdominal wall is suspicious for recurrent peritoneal metastases." This should be discussed with Dr. Skyla Garvey as soon as possible. A copy of the discharge summary will be sent to her. You have an appointment with Dr. Marcelina Uriarte for follow-up from this hospitalization on 01/24 @12:45pm. Please bring all paperwork with you to this appointment. You vitamin D was found to be low, which may be contributing to your nocturnal leg pain. You have been provided with a D2 (ergocalciferol) supplement to take once a week for 12 weeks, then stop. It is also recommended that you take a Calcium/D3 supplement twice daily for good bone health. This can be taken indefinitely and in conjunction with the other D2 supplement. Your INR (coumadin level) is therapeutic today. You will need to resume routine monitoring with the coumadin clinic within 1 week of discharge. It was a pleasure taking care of you! Call if you have any questions or problems. You can reach a [facility] hospitalist on duty at [facility] 24 hours a day by calling [phone]. Take care of yourself. Genie Soliz DO [facility] Additional Copies To Marcelina Uriarte M.D.; Skyla Garvey D.O.
[2017-01-20 11:51] VITALS: BP 128/84; PULSE 64; TEMP 36.7; O2SAT 95
[2017-01-20] MEDS ORDERED: MAGNESIUM OXIDE 400 MG TAB PO SCH (21:00)
[2017-01-21] MEDS ORDERED: WARFARIN SOD 5 MG TAB PO SCH (16:00)
[2017-03-18] MEDS ORDERED: [UNRECOGNIZED DRUG - OTHER] PO (13:48)
== END 2017-01-20 13:37 | disposition home or self-care (01) | DRG 389 ==
LOC: C.EDB 22:43 → C.MSW 01-17 02:21 → ENRESERV 01-17 02:31
PROVIDERS: ADMIT Internal Medicine; ATTEND Hospitalist
DX: K56.5 Intestinal adhesions [bands] with obstruction (postinfection) (principal); C56.9 Malignant neoplasm of unspecified ovary; C78.6 Secondary malignant neoplasm of retroperitoneum and peritoneum; E87.6 Hypokalemia; I10 Essential (primary) hypertension; E78.5 Hyperlipidemia, unspecified; E11.9 Type 2 diabetes mellitus without complications; G89.29 Other chronic pain; Z79.84 Long term (current) use of oral hypoglycemic drugs; Z79.01 Long term (current) use of anticoagulants; Z86.711 Personal history of pulmonary embolism; R00.1 Bradycardia, unspecified; Z66 Do not resuscitate; D63.8 Anemia in other chronic diseases classified elsewhere; G47.62 Sleep related leg cramps; Z79.899 Other long term (current) drug therapy; Z90.49 Acquired absence of other specified parts of digestive tract; Z90.710 Acquired absence of both cervix and uterus; E55.9 Vitamin D deficiency, unspecified; Z83.3 Family history of diabetes mellitus; Z82.49 Family history of ischemic heart disease and other diseases of the circulatory system; Z80.3 Family history of malignant neoplasm of breast; Z84.1 Family history of disorders of kidney and ureter; Z83.79 Family history of other diseases of the digestive system; Z90.722 Acquired absence of ovaries, bilateral; Z90.79 Acquired absence of other genital organ(s); Z93.3 Colostomy status

== ENCOUNTER 2017-03-15 16:33 | Inpatient (IN) | payer OTHER ==
[~2017-03-15] VITALS: Ht 172.7 cm; Wt 100.0 kg
[~2017-03-15 16:33] MED LIST changes: -ACET-1256 PO; +ADVIN25/60 PO; -ALBUAER19 INH; +BENZ1CAP90 PO; +CALC500C70 PO; -COEN100C7 PO; -CRAN1CAP15 PO; +CZR25 PO; +DXM/4 PO; +ERGO1CAP41 PO; -GLC/500 PO; +GLIM1TAB2 PO; -LDXCR30 EXT; -LOSA50TA6 PO; +METF500T5 PO; +MGNO400 PO; +NCY50 PO; +NRN100 PO; -NTRGSL/4 UT; +ONDA-63 PO; +PROM25TA16 PO; +RANI150T2 PO; +VNTHFA/IN INH
[2017-03-15] MEDS ORDERED: SODIUM CHLORIDE 0.9% 1000ML 1,000 ML IV STA (16:53)
[2017-03-15] MEDS ORDERED: ONDANSETRON INJ 2 MG/ML 2 ML VIAL IV STA (16:53)
[2017-03-15] MEDS ORDERED: SODIUM CHLORIDE 0.9% 500ML 500 ML IV STA (16:53)
[2017-03-15] MEDS ORDERED: FENTANYL CITRATE INJ 50 MCG/1 ML 2 ML VIAL IV STA ×3 (16:53→18:45)
[2017-03-15] MEDS ORDERED: OPTIRAY 320 IV PRN (17:00)
--- NOTE | 2017-03-15 17:29 | EMERGENCY ROOM VISIT NOTE ---
History Report prepared by Maddie: Ravin Mix Under the Supervision of: Dr. Oly Ryan M.D. First contact with patient: 16:52 Chief Complaint: ABDOMINAL PAIN Stated Complaint: ABDOMINAL PAIN, VOMITTING History of Present Illness The patient is a 72 year old female who presents to the Emergency Room with complaints of intermittent abdominal pain starting two days ago which is now constant. She additionally states that she has been vomiting. She states that she has ovarian cancer, and she finished chemotherapy on February 04. The patient additionally has a history of bowel obstruction, and she is unsure if this feels like her previous obstruction. The patient states that she takes pain medications at night. Source of History: patient Onset: two days ago Position: abdomen Timing: intermittent Associated Symptoms: + vomiting Review of Systems See HPI for pertinent positives & negatives. A total of 10 systems reviewed and were otherwise negative. Past Medical & Surgical Medical Problems: (1) Asthma (2) Diab Karine Wo Compl, Type Ii Or Unspec Type, Not Uncntrld (3) Hypertension Nos (4) Ovarian cancer (5) SBO (small bowel obstruction) Family History Cancer Diabetes mellitus FH: heart disease FHx: gallbladder disease Hypertension Kidney disease Kidney stones Seizures Social History Smoking Status: Never Smoker Alcohol Use: none Drug Use: none Marital Status: Housing Status: lives with significant other Occupation Status: unemployed Current/Historical Medications Scheduled Calcium/Vitamin D (Os-Yao 500 Plus D), 1 TAB PO BID Dexamethasone (Decadron), 4 MG PO UD Duloxetine HCl (Cymbalta), 60 MG PO QAM Ergocalciferol (Vitamin D 22150 Unit), 1 TAB PO WK Fluticasone Prop/Salmeterol (Advair Diskus 250/50 60 Dose), 1 PUFF PO BID Gabapentin (Gabapentin), 200 MG PO QPM Gabapentin (Neurontin), 100 MG PO BID Levothyroxine Sodium (Levothyroxine Sodium), 75 MCG PO QAM Magnesium Oxide (Mag-Ox), 400 MG PO BID Metformin Hcl Er (Glucophage Er), 1,000 MG PO DAILY Polyethylene Glycol 3350 (Miralax), 17 GM PO DAILY Ranitidine HCl (Ranitidine HCl), 150 MG PO UD Rosuvastatin Calcium (Crestor), 5 MG PO QPM Triamterene/Hctz (Triamterene/Hctz 37.5-25MG), 1 TAB PO QAM Warfarin Sod (Coumadin), 2.5 MG PO 5XWK Warfarin Sod (Coumadin), 5 MG PO 2XWK Scheduled PRN Albuterol Hfa (Ventolin Hfa), 2 PUFFS INH Q4 PRN for Wheezing Lorazepam (Ativan), 0.5 MG PO Q4 PRN for Anxiety Ondansetron (Ondansetron HCl), 8 MG PO Q8 PRN for Nausea Promethazine HCl (Promethazine HCl), 25 MG PO Q4 PRN for Nausea Tapentadol Hcl (Nucynta), 50 MG PO Q4 PRN for Pain Allergies Coded Allergies: Carboplatin (Unverified Allergy, Unknown, anaphylaxis, 03/15/17) Oxycodone (Unverified Allergy, Unknown, VOMITING, 03/15/17) Lisinopril (Verified Adverse Reaction, Severe, coughing, 03/15/17) Physical Exam Vital Signs Date Time Temp Pulse Resp B/P (MAP) Pulse Ox O2 Delivery O2 Flow Rate FiO2 03/15/17 22:31 116/65 03/15/17 22:26 69 17 95 03/15/17 22:01 128/73 03/15/17 21:56 68 14 92 03/15/17 21:41 68 03/15/17 21:31 117/64 03/15/17 21:26 67 18 95 03/15/17 21:21 69 15 95 Room Air 03/15/17 21:01 131/65 03/15/17 20:51 64 19 95 03/15/17 20:46 65 18 162/81 96 Room Air 03/15/17 20:45 Room Air 03/15/17 18:55 152/78 03/15/17 18:55 64 18 152/78 93 Room Air 03/15/17 18:33 67 20 97 03/15/17 18:31 145/71 03/15/17 18:03 60 14 95 03/15/17 18:01 145/84 03/15/17 17:45 65 18 147/84 96 Room Air 03/15/17 17:42 61 03/15/17 17:39 147/84 03/15/17 16:46 36.8 68 20 147/84 98 Room Air Physical Exam Vital signs reviewed. General: Chronically ill-appearing female, in no significant distress. HEENT: No scleral icterus, PERRLA, neck supple. Atraumatic. Cardiovascular: Regular rate and rhythm, no extra sounds. Pulmonary: Clear to auscultation bilaterally, normal work of breathing. Abdomen: Diffuse tenderness to the abdomen with rebound and guarding. Minimal tympany. Soft, nondistended, positive bowel sounds. Musculoskeletal: Atraumatic, no peripheral edema. Neurologic: Patient awake alert and oriented x 3 Skin: Warm, dry, no rash Medical Decision & Procedures ER Provider Diagnostic Interpretation: Radiology results as stated below per my review and radiologist interpretation: ABD/PELVIS IV CONTRAST ONLY CT DOSE: 983.74 mGy.cm HISTORY: Obstruction. Pain. SBO, cancer TECHNIQUE: Multiaxial CT images of the abdomen and pelvis were performed following the use of intravenous contrast. A dose lowering technique was utilized adhering to the principles of ALARA. COMPARISON STUDY: 01/17/2017 FINDINGS: Lung bases are clear. Trace perihepatic ascites. Liver is uniform. Spleen is unremarkable. Moderate fatty replacement of pancreas. Several mesenteric and peritoneal nodes similar. Findings consistent with fluid-filled small bowel distention at its proximal to mid aspect. Within the right central pelvic region is an area of segmental narrowing of the small bowel with proximal distention. This is adjacent to what appears to be a normal appendix. There is a double wall section of small bowel in the right lower quadrant which potentially represents a transient intussusception. A second area of small bowel narrowing may be present. This potentially relates to adhesions although this cannot be stated with certainty. The colon shows no evidence for obstructive change or distention. Kidneys enhance uniformly. There are several small pelvic nodes similar as compared to the prior exam. IMPRESSION: 1. At least 2 focal areas of segmental narrowing of the distal small bowel creating more proximal partial small bowel obstructive change. 2. Etiology is not clear although possibly of an internal adhesions/scarring given the patient's postoperative status must be considered. 3. Scattered adenopathy within the abdomen, mesenteric, and to a lesser extent pelvis generally similar as compared to the prior study. 4. Trace perihepatic ascites The above report was generated using voice recognition software. It may contain grammatical, syntax or spelling errors. Electronically signed by: Rasheed Brown M.D. 03/15/2017 7:29 PM Dictated Date/Time: 03/15/2017 7:20 PM Laboratory Results 9/19/17 17:35 Red Blood Count 4.47, Mean Corpuscular Volume 85.9, Mean Corpuscular Hemoglobin 29.1, Mean Corpuscular Hemoglobin Concent 33.9, Mean Platelet Volume 9.9, Neutrophils (%) (Auto) 77.5, Lymphocytes (%) (Auto) 16.4, Monocytes (%) (Auto) 5.0, Eosinophils (%) (Auto) 0.6, Basophils (%) (Auto) 0.2, Neutrophils # (Auto) 8.90, Lymphocytes # (Auto) 1.88, Monocytes # (Auto) 0.57, Eosinophils # (Auto) 0.07, Basophils # (Auto) 0.02 03/15/17 17:35 Test 03/15/17 17:35 03/15/17 20:50 White Blood Count 11.47 K/uL (4.8-10.8) Red Blood Count 4.47 M/uL (4.2-5.4) Hemoglobin 13.0 g/dL (12.0-16.0) Hematocrit 38.4 % (37-47) Mean Corpuscular Volume 85.9 fL (80-100) Mean Corpuscular Hemoglobin 29.1 pg (25-34) Mean Corpuscular Hemoglobin Concent 33.9 g/dl (32-36) Platelet Count 268 K/uL (130-400) Mean Platelet Volume 9.9 fL (7.4-10.4) Neutrophils (%) (Auto) 77.5 % Lymphocytes (%) (Auto) 16.4 % Monocytes (%) (Auto) 5.0 % Eosinophils (%) (Auto) 0.6 % Basophils (%) (Auto) 0.2 % Neutrophils # (Auto) 8.90 K/uL (1.4-6.5) Lymphocytes # (Auto) 1.88 K/uL (1.2-3.4) Monocytes # (Auto) 0.57 K/uL (0.11-0.59) Eosinophils # (Auto) 0.07 K/uL (0-0.5) Basophils # (Auto) 0.02 K/uL (0-0.2) RDW Standard Deviation 45.3 fL (36.4-46.3) RDW Coefficient of Variation 14.3 % (11.5-14.5) Immature Granulocyte % (Auto) 0.3 % Immature Granulocyte # (Auto) 0.03 K/uL (0.00-0.02) Prothrombin Time 40.2 SECONDS (9.0-12.0) Prothromb Time International Ratio 3.6 (0.9-1.1) Activated Partial Thromboplast Time 59.1 SECONDS (21.0-31.0) Partial Thromboplastin Ratio 2.3 Anion Gap 9.0 mmol/L (3-11) Est Creatinine Clear Calc Drug Dose 67.2 ml/min Estimated GFR () 69.8 Estimated GFR (Non- 60.3 BUN/Creatinine Ratio 17.6 (10-20) Calcium Level 9.7 mg/dl (8.5-10.1) Magnesium Level 1.7 mg/dl (1.8-2.4) Total Bilirubin 0.4 mg/dl (0.2-1) Direct Bilirubin 0.1 mg/dl (0-0.2) Aspartate Amino Transf (AST/SGOT) 12 U/L (15-37) Alanine Aminotransferase (ALT/SGPT) 13 U/L (12-78) Alkaline Phosphatase 71 U/L (45-117) Total Protein 7.5 gm/dl (6.4-8.2) Albumin 3.6 gm/dl (3.4-5.0) Lipase 69 U/L (73-393) Urine Color YELLOW Urine Appearance CLEAR (CLEAR) Urine pH 6.5 (4.5-7.5) Urine Specific [place] > 1.045 (1.000-1.030) Urine Protein NEG (NEG) Urine Glucose (UA) NEG (NEG) Urine Ketones 1+ (NEG) Urine Occult Blood NEG (NEG) Urine Nitrite NEG (NEG) Urine Bilirubin NEG (NEG) Urine Urobilinogen NEG (NEG) Urine Leukocyte Esterase NEG (NEG) Laboratory results per my review. Medications Administered Medications (Trade) Dose Ordered Sig/Alcides Route Start Time Stop Time Status Last Admin Dose Admin Sodium Chloride 1,000 ml @ 150 mls/hr Q6H40M STAT IV 03/15/17 16:53 03/15/17 23:32 03/15/17 17:31 150 MLS/HR Sodium Chloride 500 ml @ 999 mls/hr Q31M STAT IV 03/15/17 16:53 03/15/17 17:23 DC 03/15/17 17:31 999 MLS/HR Ondansetron HCl (Zofran Inj) 4 mg NOW STAT IV 03/15/17 16:53 03/15/17 16:56 DC 03/15/17 17:32 4 MG Fentanyl Citrate (Fentanyl Inj) 100 mcg NOW STAT IV 03/15/17 17:07 03/15/17 17:09 DC 03/15/17 17:33 100 MCG Fentanyl Citrate (Fentanyl Inj) 100 mcg NOW STAT IV 03/15/17 18:45 03/15/17 18:46 DC 03/15/17 18:51 100 MCG ECG Indication: abdominal pain Rate (beats per minute): 63 Rhythm: sinus rhythm Findings: no acute ischemic change, no ectopy, other (Short CO intervals) ED Course 1653: Fentanyl Inj 50mcg IV, Zofran Inj 4mg IV, Sodium Chloride 500 ml @ 999 mls /hr IV, Sodium Chloride 1000 ml @ 150 mls/hr IV 1707: Fentanyl Inj 100mcg IV 1710: Past medical records reviewed. The patient was evaluated in room B6. A complete history and physical examination was performed. 1835: I reevaluated the patient, and she was resting 1845: Fentanyl Inj 100mcg IV 2009: I reevaluated the patient, and I discussed the treatment plan 2013: I reviewed the patient's case with Dr. Shaw. He will evaluate the patient for further management. Medical Decision Differential Diagnoses include: bowel obstruction, perforated viscus, UTI, pyelonephritis, cholecystitis, pancreatitis, diverticulitis, appendicitis. This patient was evaluated and appeared to be in no significant distress. IV access was obtained and laboratory work was drawn. The patient was placed on the teletypesetter monitor and found to be in a normal sinus rhythm. Patient was hydrated with normal saline solution. She was given IV fentanyl and IV Zofran. Laboratory work is fairly unrevealing. CT scan abdomen and pelvis reveals a small bowel obstruction, please see the report above. The patient does have a history of metastatic ovarian cancer and multiple surgeries. She was feeling much improved on my reevaluation. She has had no further vomiting. Patient will be evaluated by the hospitalist service for admission and further management. Medication Reconcilliation Current Medication List: was personally reviewed by me Blood Pressure Screening Patient's blood pressure: Elevated blood pressure Monitored by the hospitalist Consults Time Called: 2008 Consulting Physician: Dr. Shaw Returned Call: 2012 I reviewed the patient's case with Dr. Shaw. He will evaluate the patient for further management. Impression Primary Impression: Small bowel obstruction Additional Impression: Ovarian cancer Scribe Attestation The scribe's documentation has been prepared under my direction and personally reviewed by me in its entirety. I confirm that the note above accurately reflects all work, treatment, procedures, and medical decision making performed by me. Departure Information Dispostion Being Evaluated By Hospitalist Referrals Marcelina Uriarte M.D. (PCP) Patient Instructions My [facility] Problem Qualifiers
[2017-03-15] MEDS ORDERED: TAPE50TA5 PO (17:38)
[2017-03-15] MEDS ORDERED: CALC500C70 PO (17:38)
[2017-03-15] MEDS ORDERED: ERGO1CAP41 PO (17:38)
[2017-03-15] MEDS ORDERED: MAGN400T6 PO (17:39)
[2017-03-15 17:49] LABS: BASO % 0.2 %; BASO ABS # 0.02 K/uL (0-0.2); COMPLETE YES; EOS % 0.6 %; HEMATOCRIT 38.4 % (37-47); IG% 0.3 %; LYMPH % 16.4 %; LYMPH ABS # 1.88 K/uL (1.2-3.4); MEAN CELL VOLUME 85.9 fL (80-100); MEAN CORPUSCULAR HEMOGLOBIN 29.1 pg (25-34); MEAN CORPUSCULAR HGB CONC 33.9 g/dl (32-36); MEAN PLATELET VOLUME 9.9 fL (7.4-10.4); NEUT % 77.5 %; PLATELET COUNT 268 K/uL (130-400); RED BLOOD COUNT 4.47 M/uL (4.2-5.4); WHITE BLOOD COUNT 11.47 K/uL (4.8-10.8)
[2017-03-15 18:03] LABS: BUN/CREATININE RATIO 17.6 (10-20); CALCIUM 9.7 mg/dl (8.5-10.1); CREATININE 0.95 mg/dl (0.60-1.20); MAGNESIUM 1.7 mg/dl (1.8-2.4); POTASSIUM 3.3 mmol/L (3.5-5.1)
[2017-03-15 18:20] LABS: PARTIAL THROMBOPLASTIN RATIO 2.3; PROTHROMBIN TIME (PATIENT) 40.2 SECONDS (9.0-12.0)
[2017-03-15 18:47] LABS: INR 3.6 (0.9-1.1)
--- NOTE | 2017-03-15 19:31 | DIAGNOSTIC IMAGING REPORT ---
ABD/PELVIS IV CONTRAST ONLY CT DOSE: 983.74 mGy.cm HISTORY: Obstruction. Pain. SBO, cancer TECHNIQUE: Multiaxial CT images of the abdomen and pelvis were performed following the use of intravenous contrast. A dose lowering technique was utilized adhering to the principles of ALARA. COMPARISON STUDY: 01/17/2017 FINDINGS: Lung bases are clear. Trace perihepatic ascites. Liver is uniform. Spleen is unremarkable. Moderate fatty replacement of pancreas. Several mesenteric and peritoneal nodes similar. Findings consistent with fluid-filled small bowel distention at its proximal to mid aspect. Within the right central pelvic region is an area of segmental narrowing of the small bowel with proximal distention. This is adjacent to what appears to be a normal appendix. There is a double wall section of small bowel in the right lower quadrant which potentially represents a transient intussusception. A second area of small bowel narrowing may be present. This potentially relates to adhesions although this cannot be stated with certainty. The colon shows no evidence for obstructive change or distention. Kidneys enhance uniformly. There are several small pelvic nodes similar as compared to the prior exam. IMPRESSION: 1. At least 2 focal areas of segmental narrowing of the distal small bowel creating more proximal partial small bowel obstructive change. 2. Etiology is not clear although possibly of an internal adhesions/scarring given the patient's postoperative status must be considered. 3. Scattered adenopathy within the abdomen, mesenteric, and to a lesser extent pelvis generally similar as compared to the prior study. 4. Trace perihepatic ascites The above report was generated using voice recognition software. It may contain grammatical, syntax or spelling errors. Electronically signed by: Rasheed Brown M.D. 03/15/2017 7:29 PM Dictated Date/Time: 03/15/2017 7:20 PM
[2017-03-15 20:45] VITALS: Ht 172.7 cm; Wt 100.0 kg
[2017-03-15 21:10] LABS: URINE APPEARANCE CLEAR (CLEAR); URINE BILIRUBIN NEG (NEG); URINE COLOR YELLOW; URINE NITRITE NEG (NEG); URINE PH 6.5 (4.5-7.5); URINE SPECIFIC GRAVITY > 1.045 (1.000-1.030); UROBILINOGEN NEG (NEG); ZZUR CULT IF INDIC CLEAN CATCH NO
[2017-03-15 21:38] LABS: MANUAL MICROSCOPIC REQUIRED? NO; REVIEW REQ? NO
[2017-03-15] MEDS ORDERED: ONDANSETRON INJ 2 MG/ML 2 ML VIAL IV PRN (22:15)
[2017-03-15] MEDS ORDERED: DEXTROSE 50% 50 ML SYR IV PRN (22:15)
[2017-03-15] MEDS ORDERED: GLUCOSE 40% GEL 15 GM TUBE PO PRN (22:15)
[2017-03-15] MEDS ORDERED: GLUCAGON FOR INJ 1 MG VIAL SQ PRN (22:15)
[2017-03-15] MEDS ORDERED: MoRPHine SULFATE 4 MG/ML 1 ML CARP\\VIAL IV PRN (22:30)
[2017-03-15] MEDS ORDERED: ACETAMINOPHEN IV 650 MG in EMPTY BAG 0 ML IV PRN (22:30)
[2017-03-15] MEDS ORDERED: LORAZEPAM 2 MG/ML 1 ML VIAL IV PRN (22:30)
[2017-03-15] MEDS ORDERED: ALBUTEROL HFA 8 GM INHALER INH PRN (22:30)
[2017-03-15] MEDS ORDERED: HydrALAZINE HCL 20 MG/ML VIAL IV. PRN (22:45)
--- NOTE | 2017-03-15 22:54 | Medical Consult ---
Consultation Date of Consultation: Mar 15, 2017. Attending Physician: History of Present Illness adm through ER with N/V, abd pain- CT shows dilated small bowel- c/w partial sbo- had similar episode 12/2016 h/o recent chemo for recurrent ovarian Ca- prior debulking procedure at [facility] Past Medical/Surgical History Medical Problems: (1) Dehydration Status: Acute (2) Small bowel obstruction Status: Acute (3) Small bowel obstruction Status: Acute Family History Cancer Diabetes mellitus FH: heart disease FHx: gallbladder disease Hypertension Kidney disease Kidney stones Seizures Social History Smoking Status: Never Smoker Drug Use: none Marital Status: Housing Status: lives with significant other Occupation Status: unemployed Allergies Coded Allergies: Carboplatin (Unverified Allergy, Unknown, anaphylaxis, 03/15/17) Oxycodone (Unverified Allergy, Unknown, VOMITING, 03/15/17) Lisinopril (Verified Adverse Reaction, Severe, coughing, 03/15/17) Current Inpatient Medications Current Inpatient Medications Medications (Trade) Dose Ordered Sig/Alcides Route Start Time Stop Time Status Last Admin Dose Admin Sodium Chloride 1,000 ml @ 150 mls/hr Q6H40M STAT IV 03/15/17 16:53 03/15/17 23:32 03/15/17 17:31 150 MLS/HR Ioversol (Optiray 320) 111 ml UD PRN IV 03/15/17 17:00 03/19/17 16:59 Ondansetron HCl (Zofran Inj) 4 mg Q6H PRN IV 03/15/17 22:15 04/14/17 22:14 Glucose (Glucose 40% Gel) 15-30 GRAMS 15 GRAMS... UD PRN PO 03/15/17 22:15 04/14/17 22:14 Dextrose (Dextrose 50% 50ML Syringe) 25-50ML OF 50% DW IV FOR... UD PRN IV 03/15/17 22:15 04/14/17 22:14 Glucagon (Glucagon Inj) 1 mg UD PRN SQ 03/15/17 22:15 04/14/17 22:14 Magnesium Sulfate gm gm/Potassium Chloride meq meq/ Sodium Chloride 524 ml @ 125 mls/hr Q4H12M IV 03/15/17 22:30 03/16/17 02:30 UNV Sodium Chloride 1,000 ml @ 125 mls/hr Q8H IV 03/15/17 22:30 04/14/17 22:29 UNV Albuterol (Ventolin Hfa Inhaler) 2 puffs Q4 PRN INH 03/15/17 22:30 04/14/17 22:29 Salmeterol Xinafoate/ Fluticasone (Advair Diskus 250/50 Inh) 1 puff BID INH 03/16/17 09:00 04/15/17 08:59 UNV Acetaminophen 650 mg/Empty Bag 65 ml @ 260 mls/hr Q6H PRN IV 03/15/17 22:30 04/14/17 22:29 Levothyroxine Sodium 37.5 mcg/ Syringe 1.875 ml @ 2 mls/min DAILY@09 IV 03/16/17 09:00 04/15/17 08:59 UNV Morphine Sulfate (MoRPHine SULFATE INJ) 4 mg Q4H PRN IV 03/15/17 22:30 03/29/17 22:29 Lorazepam (Ativan Inj) 0.5 mg Q4H PRN IV 03/15/17 22:30 04/14/17 22:29 UNV Insulin Glargine (Lantus Solostar Pen) 5 units HS SC 03/16/17 21:00 04/15/17 20:59 UNV Hydralazine HCl (HydrALAZINE INJ) 10 mg Q6H PRN IV. 03/15/17 22:45 04/14/17 22:44 UNV Review of Systems Constitutional: No fever, No chills ENT: No sore throat Respiratory: No cough, No sputum Cardiovascular: No chest pain Abdomen: + pain, + nausea, + vomiting Musculoskeletal: No joint pain Genitourinary - Female: No dysuria Endocrine: + fatigue Integumentary: No rash Physical Exam Date Time Temp Pulse Resp B/P (MAP) Pulse Ox O2 Delivery O2 Flow Rate FiO2 03/15/17 22:31 116/65 03/15/17 22:26 69 17 95 03/15/17 22:01 128/73 03/15/17 21:56 68 14 92 03/15/17 21:41 68 03/15/17 21:31 117/64 03/15/17 21:26 67 18 95 03/15/17 21:21 69 15 95 Room Air 03/15/17 21:01 131/65 03/15/17 20:51 64 19 95 03/15/17 20:46 65 18 162/81 96 Room Air 03/15/17 20:45 Room Air 03/15/17 18:55 152/78 03/15/17 18:55 64 18 152/78 93 Room Air 03/15/17 18:33 67 20 97 03/15/17 18:31 145/71 03/15/17 18:03 60 14 95 03/15/17 18:01 145/84 03/15/17 17:45 65 18 147/84 96 Room Air 03/15/17 17:42 61 03/15/17 17:39 147/84 03/15/17 16:46 36.8 68 20 147/84 98 Room Air General Appearance: no apparent distress Head: atraumatic Neck: supple Respiratory/Chest: no respiratory distress Cardiovascular: regular rate, rhythm Abdomen/GI: non tender (decreased bowel sounds), soft Extremities/Musculoskelatal: no pedal edema Skin: no rash Laboratory Results Last 24 Hours Test 03/15/17 17:35 03/15/17 20:50 White Blood Count 11.47 K/uL Red Blood Count 4.47 M/uL Hemoglobin 13.0 g/dL Hematocrit 38.4 % Mean Corpuscular Volume 85.9 fL Mean Corpuscular Hemoglobin 29.1 pg Mean Corpuscular Hemoglobin Concent 33.9 g/dl Platelet Count 268 K/uL Mean Platelet Volume 9.9 fL Neutrophils (%) (Auto) 77.5 % Lymphocytes (%) (Auto) 16.4 % Monocytes (%) (Auto) 5.0 % Eosinophils (%) (Auto) 0.6 % Basophils (%) (Auto) 0.2 % Neutrophils # (Auto) 8.90 K/uL Lymphocytes # (Auto) 1.88 K/uL Monocytes # (Auto) 0.57 K/uL Eosinophils # (Auto) 0.07 K/uL Basophils # (Auto) 0.02 K/uL RDW Standard Deviation 45.3 fL RDW Coefficient of Variation 14.3 % Immature Granulocyte % (Auto) 0.3 % Immature Granulocyte # (Auto) 0.03 K/uL Prothrombin Time 40.2 SECONDS Prothromb Time International Ratio 3.6 Activated Partial Thromboplast Time 59.1 SECONDS Partial Thromboplastin Ratio 2.3 Sodium Level 137 mmol/L Potassium Level 3.3 mmol/L Chloride Level 99 mmol/L Carbon Dioxide Level 29 mmol/L Anion Gap 9.0 mmol/L Blood Urea Nitrogen 17 mg/dl Creatinine 0.95 mg/dl Est Creatinine Clear Calc Drug Dose 67.2 ml/min Estimated GFR () 69.8 Estimated GFR (Non- 60.3 BUN/Creatinine Ratio 17.6 Random Glucose 168 mg/dl Calcium Level 9.7 mg/dl Magnesium Level 1.7 mg/dl Total Bilirubin 0.4 mg/dl Direct Bilirubin 0.1 mg/dl Aspartate Amino Transf (AST/SGOT) 12 U/L Alanine Aminotransferase (ALT/SGPT) 13 U/L Alkaline Phosphatase 71 U/L Total Protein 7.5 gm/dl Albumin 3.6 gm/dl Lipase 69 U/L Urine Color YELLOW Urine Appearance CLEAR Urine pH 6.5 Urine Specific [place] > 1.045 Urine Protein NEG Urine Glucose (UA) NEG Urine Ketones 1+ Urine Occult Blood NEG Urine Nitrite NEG Urine Bilirubin NEG Urine Urobilinogen NEG Urine Leukocyte Esterase NEG Assessment & Plan 03/15/17- pt with recurrent partial sbo- 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 Trying to avoid NG unless vomits, IV hydration, correct electrolytes. If she worsens , would consider transfer to [place]- surgical intervention will likely require bowel resection/ probably pelvic tumor
[2017-03-15] MEDS ORDERED: POTASSIUM CHLORIDE IV SCH (23:00)
[2017-03-15] MEDS ORDERED: [UNRECOGNIZED DRUG - OTHER] IV SCH (23:00)
[2017-03-15] MEDS ORDERED: MAG SULFATE IV SCH (23:00)
[2017-03-15 23:08] VITALS: BP 146/82; PULSE 78; TEMP 36.6; O2SAT 96
--- NOTE | 2017-03-15 23:32 | History and Physical ---
History & Physical Date & Time of Service: Mar 15, 2017 at 22:48 Chief Complaint: Abdominal Pain, Vomitting Primary Care Physician: Marcelina Uriarte M.D. History of Present Illness Source: patient, family, clinic records, hospital records 72 yo F with metastatic ovarian cancer presents with intermittent generalized abdominal pain that began two days ago. She reports this intermittent pain with no triggers or alleviating factors mentioned and when she saw her marine diesel technician today in the office, she did not have any pain on exam. When she got home, however, she was able to entertain friends and eat lunch but then subsequently developed worsening pain with vomiting that intensified. She does report having a BM today. She denies any fevers, chills, headache, diarrhea or constipation recently and was feeling well prior to this. Last chemo treatment was Feb 04. She was scheduled to see Dr. Marshall at the end of this week to discuss future directions and her recent CT scan from last week. Her daughters are at bedside and all questions were answered. I discussed the case with Dr. Carbajal who is the General Surgeon buttonhole maker. The patient did not receive an NGT in the ER. Past Medical/Surgical History Medical Problems: (1) Asthma Status: Chronic (2) Back pain Status: Chronic (3) Bilateral pulmonary embolism Status: Chronic (4) Diab Karine Wo Compl, Type Ii Or Unspec Type, Not Uncntrld Status: Chronic (5) Hypertension Nos Status: Chronic (6) Ovarian cancer Status: Chronic (7) SBO (small bowel obstruction) Status: Resolved Family History Cancer Diabetes mellitus FH: heart disease FHx: gallbladder disease Hypertension Kidney disease Kidney stones Seizures Social History Smoking Status: Never Smoker Smokeless Tobacco Use: No Alcohol Use: none Drug Use: none Marital Status: Housing status: lives with family Occupational Status: unemployed Immunizations History of Influenza Vaccine: Yes Influenza Vaccine Date: May 04, 2016 History of Tetanus Vaccine?: Yes Tetanus Immunization Date: Dec 30, 2008 History of Pneumococcal: Yes Pneumococcal Date: Oct 17, 2015 History of Hepatitis B Vaccine: No Multi-Drug Resistant Organisms History of MDRO: No Allergies Coded Allergies: Carboplatin (Unverified Allergy, Unknown, anaphylaxis, 03/15/17) Oxycodone (Unverified Allergy, Unknown, VOMITING, 03/15/17) Lisinopril (Verified Adverse Reaction, Severe, coughing, 9/19/17) Home Medications Scheduled Calcium/Vitamin D (Os-Yao 500 Plus D), 1 TAB PO BID Dexamethasone (Decadron), 4 MG PO UD Duloxetine HCl (Cymbalta), 60 MG PO QAM Ergocalciferol (Vitamin D 34673 Unit), 1 TAB PO WK Fluticasone Prop/Salmeterol (Advair Diskus 250/50 60 Dose), 1 PUFF PO BID Gabapentin (Gabapentin), 200 MG PO QPM Gabapentin (Neurontin), 100 MG PO BID Levothyroxine Sodium (Levothyroxine Sodium), 75 MCG PO QAM Magnesium Oxide (Mag-Ox), 400 MG PO BID Metformin Hcl Er (Glucophage Er), 1,000 MG PO DAILY Polyethylene Glycol 3350 (Miralax), 17 GM PO DAILY Ranitidine HCl (Ranitidine HCl), 150 MG PO UD Rosuvastatin Calcium (Crestor), 5 MG PO QPM Triamterene/Hctz (Triamterene/Hctz 37.5-25MG), 1 TAB PO QAM Warfarin Sod (Coumadin), 2.5 MG PO 5XWK Warfarin Sod (Coumadin), 5 MG PO 2XWK Scheduled PRN Albuterol Hfa (Ventolin Hfa), 2 PUFFS INH Q4 PRN for Wheezing Lorazepam (Ativan), 0.5 MG PO Q4 PRN for Anxiety Ondansetron (Ondansetron HCl), 8 MG PO Q8 PRN for Nausea Promethazine HCl (Promethazine HCl), 25 MG PO Q4 PRN for Nausea Tapentadol Hcl (Nucynta), 50 MG PO Q4 PRN for Pain Review of Systems Constitutional: No fever, No chills Eyes: No problem reported ENT: No sore throat Respiratory: No cough, No shortness of breath Cardiovascular: No chest pain Abdomen: + pain, + nausea, + vomiting, No diarrhea, No constipation, No GI bleeding Genitourinary - Female: No dysuria Neurologic: + numbness/tingling (chronic neuropathy in fingers and feet) Psychiatric: + anxiety (stable chronic anxiety) Integumentary: No new/changing skin lesions Allergic / Immunologic: No food allergies Physical Exam Vital Signs Date Time Temp Pulse Resp B/P (MAP) Pulse Ox O2 Delivery O2 Flow Rate FiO2 03/15/17 22:31 116/65 03/15/17 22:26 69 17 95 03/15/17 22:01 128/73 03/15/17 21:56 68 14 92 03/15/17 21:41 68 03/15/17 21:31 117/64 03/15/17 21:26 67 18 95 03/15/17 21:21 69 15 95 Room Air 03/15/17 21:01 131/65 03/15/17 20:51 64 19 95 03/15/17 20:46 65 18 162/81 96 Room Air 03/15/17 20:45 Room Air 03/15/17 18:55 152/78 03/15/17 18:55 64 18 152/78 93 Room Air 03/15/17 18:33 67 20 97 03/15/17 18:31 145/71 03/15/17 18:03 60 14 95 03/15/17 18:01 145/84 03/15/17 17:45 65 18 147/84 96 Room Air 03/15/17 17:42 61 03/15/17 17:39 147/84 03/15/17 16:46 36.8 68 20 147/84 98 Room Air General Appearance: WD/WN, + mild distress Head: normocephalic, atraumatic Eyes: normal inspection, PERRL, sclerae normal ENT: normal ENT inspection, hearing grossly normal Neck: supple, trachea midline Respiratory/Chest: lungs clear, normal breath sounds, no respiratory distress, no accessory muscle use, + pertinent finding (port to left anterior chest wall- accessed) Cardiovascular: regular rate, rhythm, no edema, no gallop, no JVD, no murmur, normal peripheral pulses Abdomen/GI: soft, + tenderness (diffuse worse in superior abdomen-this is just after pain meds), + abnormal bowel sounds (hypoactive) Back: normal inspection, no CVA tenderness Extremities/Musculoskelatal: normal inspection, no calf tenderness, no pedal edema Neurologic/Psych: box icer II-XII nml as tested, no motor/sensory deficits, alert, normal mood/affect, oriented x 3 Skin: normal color, warm/dry, no rash Diagnostics Laboratory Results 03/15/17 17:35 Red Blood Count 4.47, Mean Corpuscular Volume 85.9, Mean Corpuscular Hemoglobin 29.1, Mean Corpuscular Hemoglobin Concent 33.9, Mean Platelet Volume 9.9, Neutrophils (%) (Auto) 77.5, Lymphocytes (%) (Auto) 16.4, Monocytes (%) (Auto) 5.0, Eosinophils (%) (Auto) 0.6, Basophils (%) (Auto) 0.2, Neutrophils # (Auto) 8.90, Lymphocytes # (Auto) 1.88, Monocytes # (Auto) 0.57, Eosinophils # (Auto) 0.07, Basophils # (Auto) 0.02 03/15/17 17:35 Test 03/15/17 17:35 03/15/17 20:50 White Blood Count 11.47 K/uL (4.8-10.8) Red Blood Count 4.47 M/uL (4.2-5.4) Hemoglobin 13.0 g/dL (12.0-16.0) Hematocrit 38.4 % (37-47) Mean Corpuscular Volume 85.9 fL (80-100) Mean Corpuscular Hemoglobin 29.1 pg (25-34) Mean Corpuscular Hemoglobin Concent 33.9 g/dl (32-36) Platelet Count 268 K/uL (130-400) Mean Platelet Volume 9.9 fL (7.4-10.4) Neutrophils (%) (Auto) 77.5 % Lymphocytes (%) (Auto) 16.4 % Monocytes (%) (Auto) 5.0 % Eosinophils (%) (Auto) 0.6 % Basophils (%) (Auto) 0.2 % Neutrophils # (Auto) 8.90 K/uL (1.4-6.5) Lymphocytes # (Auto) 1.88 K/uL (1.2-3.4) Monocytes # (Auto) 0.57 K/uL (0.11-0.59) Eosinophils # (Auto) 0.07 K/uL (0-0.5) Basophils # (Auto) 0.02 K/uL (0-0.2) RDW Standard Deviation 45.3 fL (36.4-46.3) RDW Coefficient of Variation 14.3 % (11.5-14.5) Immature Granulocyte % (Auto) 0.3 % Immature Granulocyte # (Auto) 0.03 K/uL (0.00-0.02) Prothrombin Time 40.2 SECONDS (9.0-12.0) Prothromb Time International Ratio 3.6 (0.9-1.1) Activated Partial Thromboplast Time 59.1 SECONDS (21.0-31.0) Partial Thromboplastin Ratio 2.3 Anion Gap 9.0 mmol/L (3-11) Est Creatinine Clear Calc Drug Dose 67.2 ml/min Estimated GFR () 69.8 Estimated GFR (Non- 60.3 BUN/Creatinine Ratio 17.6 (10-20) Calcium Level 9.7 mg/dl (8.5-10.1) Magnesium Level 1.7 mg/dl (1.8-2.4) Total Bilirubin 0.4 mg/dl (0.2-1) Direct Bilirubin 0.1 mg/dl (0-0.2) Aspartate Amino Transf (AST/SGOT) 12 U/L (15-37) Alanine Aminotransferase (ALT/SGPT) 13 U/L (12-78) Alkaline Phosphatase 71 U/L (45-117) Total Protein 7.5 gm/dl (6.4-8.2) Albumin 3.6 gm/dl (3.4-5.0) Lipase 69 U/L (73-393) Urine Color YELLOW Urine Appearance CLEAR (CLEAR) Urine pH 6.5 (4.5-7.5) Urine Specific [place] > 1.045 (1.000-1.030) Urine Protein NEG (NEG) Urine Glucose (UA) NEG (NEG) Urine Ketones 1+ (NEG) Urine Occult Blood NEG (NEG) Urine Nitrite NEG (NEG) Urine Bilirubin NEG (NEG) Urine Urobilinogen NEG (NEG) Urine Leukocyte Esterase NEG (NEG) Results Past 24 Hours Test 03/15/17 17:35 03/15/17 20:50 Range/Units White Blood Count 11.47 4.8-10.8 K/uL Red Blood Count 4.47 4.2-5.4 M/uL Hemoglobin 13.0 12.0-16.0 g/dL Hematocrit 38.4 37-47 % Mean Corpuscular Volume 85.9 80-100 fL Mean Corpuscular Hemoglobin 29.1 25-34 pg Mean Corpuscular Hemoglobin Concent 33.9 32-36 g/dl Platelet Count 268 130-400 K/uL Mean Platelet Volume 9.9 7.4-10.4 fL Neutrophils (%) (Auto) 77.5 % Lymphocytes (%) (Auto) 16.4 % Monocytes (%) (Auto) 5.0 % Eosinophils (%) (Auto) 0.6 % Basophils (%) (Auto) 0.2 % Neutrophils # (Auto) 8.90 1.4-6.5 K/uL Lymphocytes # (Auto) 1.88 1.2-3.4 K/uL Monocytes # (Auto) 0.57 0.11-0.59 K/uL Eosinophils # (Auto) 0.07 0-0.5 K/uL Basophils # (Auto) 0.02 0-0.2 K/uL RDW Standard Deviation 45.3 36.4-46.3 fL RDW Coefficient of Variation 14.3 11.5-14.5 % Immature Granulocyte % (Auto) 0.3 % Immature Granulocyte # (Auto) 0.03 0.00-0.02 K/uL Prothrombin Time 40.2 9.0-12.0 SECONDS Prothromb Time International Ratio 3.6 0.9-1.1 Activated Partial Thromboplast Time 59.1 21.0-31.0 SECONDS Partial Thromboplastin Ratio 2.3 Sodium Level 137 136-145 mmol/L Potassium Level 3.3 3.5-5.1 mmol/L Chloride Level 99 98-107 mmol/L Carbon Dioxide Level 29 21-32 mmol/L Anion Gap 9.0 3-11 mmol/L Blood Urea Nitrogen 17 7-18 mg/dl Creatinine 0.95 0.60-1.20 mg/dl Est Creatinine Clear Calc Drug Dose 67.2 ml/min Estimated GFR () 69.8 Estimated GFR (Non- 60.3 BUN/Creatinine Ratio 17.6 10-20 Random Glucose 168 70-99 mg/dl Calcium Level 9.7 8.5-10.1 mg/dl Magnesium Level 1.7 1.8-2.4 mg/dl Total Bilirubin 0.4 0.2-1 mg/dl Direct Bilirubin 0.1 0-0.2 mg/dl Aspartate Amino Transf (AST/SGOT) 12 15-37 U/L Alanine Aminotransferase (ALT/SGPT) 13 12-78 U/L Alkaline Phosphatase 71 45-117 U/L Total Protein 7.5 6.4-8.2 gm/dl Albumin 3.6 3.4-5.0 gm/dl Lipase 69 73-393 U/L Urine Color YELLOW Urine Appearance CLEAR CLEAR Urine pH 6.5 4.5-7.5 Urine Specific [place] > 1.045 1.000-1.030 Urine Protein NEG NEG Urine Glucose (UA) NEG NEG Urine Ketones 1+ NEG Urine Occult Blood NEG NEG Urine Nitrite NEG NEG Urine Bilirubin NEG NEG Urine Urobilinogen NEG NEG Urine Leukocyte Esterase NEG NEG Diagnostic Radiology ABD/PELVIS IV CONTRAST ONLY CT DOSE: 983.74 mGy.cm HISTORY: Obstruction. Pain. SBO, cancer TECHNIQUE: Multiaxial CT images of the abdomen and pelvis were performed following the use of intravenous contrast. A dose lowering technique was utilized adhering to the principles of ALARA. COMPARISON STUDY: 01/17/2017 FINDINGS: Lung bases are clear. Trace perihepatic ascites. Liver is uniform. Spleen is unremarkable. Moderate fatty replacement of pancreas. Several mesenteric and peritoneal nodes similar. Findings consistent with fluid-filled small bowel distention at its proximal to mid aspect. Within the right central pelvic region is an area of segmental narrowing of the small bowel with proximal distention. This is adjacent to what appears to be a normal appendix. There is a double wall section of small bowel in the right lower quadrant which potentially represents a transient intussusception. A second area of small bowel narrowing may be present. This potentially relates to adhesions although this cannot be stated with certainty. The colon shows no evidence for obstructive change or distention. Kidneys enhance uniformly. There are several small pelvic nodes similar as compared to the prior exam. IMPRESSION: 1. At least 2 focal areas of segmental narrowing of the distal small bowel creating more proximal partial small bowel obstructive change. 2. Etiology is not clear although possibly of an internal adhesions/scarring given the patient's postoperative status must be considered. 3. Scattered adenopathy within the abdomen, mesenteric, and to a lesser extent pelvis generally similar as compared to the prior study. 4. Trace perihepatic ascites Impression Assessment and Plan 72 yo F with metastatic ovarian cancer who presents with abdominal pain 2/2 SBO 1. SBO-two areas of narrowing are present. Currently not vomiting and nausea controlled with meds without the need for NGT. CT scan reviewed with patient. Case discussed with Dr. Carbajal who feels she is stable for now but if her situation worsens, she would require transfer to [place] for surgical treatment. Cont supportive care with IV fluids, antiemetics and IV morphine PRN. Bowel rest for now and monitor. 2. Hypokalemia/hypomagnesemia-replace IV now, repeat PRP in am 3. metastatic ovarian cancer-s/p abdominal surgery, last chemotherapy was Feb 04. Cont per Oncology as outpatient 4. Anxiety-held Cymbalta with NPO status, cont Ativan IV PRN 5. Hypothyroidism-Synthroid IV 6. HTN-per Dr. Uriarte, she should stop her Losartan and cont her Maxzide. This was a recent change from today's visit moving forward. Holding all PO meds at this time with hydralazine ordered PRN SBP>180. 7. JEYSON-may use home CPAP 8. DMII-while NPO will hold on any Novolog, but have stated parameters to be called if FSG >200. Lantus ordered at half recommended dose to start tomorrow night. Hold metformin. 9. h/o pulmonary embolism-on lifelong coumadin but currently is NPO with a supratherapeutic INR. Hold coumadin and follow INR daily. DVT prophy-coumadin Full Code-discussed with she and her daughters who all agree. The patient states that she has a living will saying no prolonging measures. Dispo-[facility] med[facility]surg [facility] Level of Care Med/Surg Advanced Directives Existing Living Will: Yes Existing Power of Instrument Man: Yes Resuscitation Status FULL RESUSCITATION VTE Prophylaxis VTE Risk Assessment Done? Y/N: Yes Risk Level: High Given or contraindicated: Warfarin (Coumadin)
[2017-03-16] MEDS ORDERED: LORAZEPAM INJ 0.5 MG in SYRINGE 0.75 ML IV PRN (00:15)
[2017-03-16] MEDS: SODIUM CHLORIDE 0.9% 1000ML 1,000 ML IV SCH ×3 (04:41→18:45)
--- NOTE | 2017-03-16 06:27 | Surgery Progress Note ---
Surgery Progress Note Date of Service Mar 16, 2017. Subjective vitals stable- pt resting- daughter at bedside had one episode of pain last pm- urine output good. no emesis Objective Vital Signs: Date Time Temp Pulse Resp B/P (MAP) Pulse Ox O2 Delivery O2 Flow Rate FiO2 03/16/17 00:25 Room Air 03/15/17 23:08 36.6 78 18 146/82 (103) 96 Room Air 03/15/17 22:45 36.8 69 17 116/65 95 03/15/17 22:31 116/65 03/15/17 22:26 69 17 95 03/15/17 22:01 128/73 03/15/17 21:56 68 14 92 03/15/17 21:41 68 03/15/17 21:31 117/64 03/15/17 21:26 67 18 95 03/15/17 21:21 69 15 95 Room Air 03/15/17 21:01 131/65 03/15/17 20:51 64 19 95 03/15/17 20:46 65 18 162/81 96 Room Air 03/15/17 20:45 Room Air 03/15/17 18:55 152/78 03/15/17 18:55 64 18 152/78 93 Room Air 03/15/17 18:33 67 20 97 03/15/17 18:31 145/71 03/15/17 18:03 60 14 95 03/15/17 18:01 145/84 03/15/17 17:45 65 18 147/84 96 Room Air 03/15/17 17:42 61 03/15/17 17:39 147/84 03/15/17 16:46 36.8 68 20 147/84 98 Room Air General Appearance: no apparent distress Respiratory/Chest: no respiratory distress Abdomen: non distended Laboratory Results: Results Past 24 Hours Test 03/15/17 17:35 03/15/17 20:50 03/16/17 04:31 03/16/17 04:44 Range/Units White Blood Count 11.47 4.8-10.8 K/uL Red Blood Count 4.47 4.2-5.4 M/uL Hemoglobin 13.0 12.0-16.0 g/dL Hematocrit 38.4 37-47 % Mean Corpuscular Volume 85.9 80-100 fL Mean Corpuscular Hemoglobin 29.1 25-34 pg Mean Corpuscular Hemoglobin Concent 33.9 32-36 g/dl Platelet Count 268 130-400 K/uL Mean Platelet Volume 9.9 7.4-10.4 fL Neutrophils (%) (Auto) 77.5 % Lymphocytes (%) (Auto) 16.4 % Monocytes (%) (Auto) 5.0 % Eosinophils (%) (Auto) 0.6 % Basophils (%) (Auto) 0.2 % Neutrophils # (Auto) 8.90 1.4-6.5 K/uL Lymphocytes # (Auto) 1.88 1.2-3.4 K/uL Monocytes # (Auto) 0.57 0.11-0.59 K/uL Eosinophils # (Auto) 0.07 0-0.5 K/uL Basophils # (Auto) 0.02 0-0.2 K/uL RDW Standard Deviation 45.3 36.4-46.3 fL RDW Coefficient of Variation 14.3 11.5-14.5 % Immature Granulocyte % (Auto) 0.3 % Immature Granulocyte # (Auto) 0.03 0.00-0.02 K/uL Prothrombin Time 40.2 9.0-12.0 SECONDS Prothromb Time International Ratio 3.6 0.9-1.1 Activated Partial Thromboplast Time 59.1 21.0-31.0 SECONDS Partial Thromboplastin Ratio 2.3 Sodium Level 137 136-145 mmol/L Potassium Level 3.3 3.5-5.1 mmol/L Chloride Level 99 98-107 mmol/L Carbon Dioxide Level 29 21-32 mmol/L Anion Gap 9.0 3-11 mmol/L Blood Urea Nitrogen 17 7-18 mg/dl Creatinine 0.95 0.60-1.20 mg/dl Est Creatinine Clear Calc Drug Dose 67.2 ml/min Estimated GFR () 69.8 Estimated GFR (Non- 60.3 BUN/Creatinine Ratio 17.6 10-20 Random Glucose 168 70-99 mg/dl Calcium Level 9.7 8.5-10.1 mg/dl Magnesium Level 1.7 1.8-2.4 mg/dl Total Bilirubin 0.4 0.2-1 mg/dl Direct Bilirubin 0.1 0-0.2 mg/dl Aspartate Amino Transf (AST/SGOT) 12 15-37 U/L Alanine Aminotransferase (ALT/SGPT) 13 12-78 U/L Alkaline Phosphatase 71 45-117 U/L Total Protein 7.5 6.4-8.2 gm/dl Albumin 3.6 3.4-5.0 gm/dl Lipase 69 73-393 U/L Urine Color YELLOW Urine Appearance CLEAR CLEAR Urine pH 6.5 4.5-7.5 Urine Specific [place] > 1.045 1.000-1.030 Urine Protein NEG NEG Urine Glucose (UA) NEG NEG Urine Ketones 1+ NEG Urine Occult Blood NEG NEG Urine Nitrite NEG NEG Urine Bilirubin NEG NEG Urine Urobilinogen NEG NEG Urine Leukocyte Esterase NEG NEG Bedside Glucose 122 70-90 mg/dl Assessment & Plan 03/16/17- no acute chgs- I suspect this is from tumor, but could just be adhesions. Check KUB. Cont NPO exc ice. check labs.
[2017-03-16 06:59] VITALS: BP 124/73; PULSE 66; TEMP 36.6; O2SAT 98
[2017-03-16 08:06] LABS: INR 3.2 (0.9-1.1); PROTHROMBIN TIME (PATIENT) 35.5 SECONDS (9.0-12.0)
--- NOTE | 2017-03-16 08:08 | Clinical Documentation Query ---
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 ( ) Not Agree ( ) Other explanation of clinical findings (Please Explain) ( ) Unable to determine (Please Define) ( ) Need to Discuss The medical record reflects the following clinical findings, treatment, and risk factors. Clinical Indicators: +SBO via CT. Surgical consult suspects this is from tumor. Treatment: IVF's, bowel rest, Surgical consult Risk Factors: Age, metastatic ovarian CA Please clarify and document your clinical opinion in the progress notes and discharge summary. Terms such as "probable", "suspected", "likely", "questionable", "possible", or "still to be ruled out" are acceptable. IF IN AGREEMENT, YOU MUST DOCUMENT ABOVE DIAGNOSTIC STATEMENT IN DAILY PROGRESS NOTES AND DISCHARGE SUMMARY. This document is not part of the patient's record. Thank You, Wilfredo Kaufman RN [phone]
[2017-03-16 08:30] LABS: HEMATOCRIT 30.9 % (37-47); MEAN CELL VOLUME 88.5 fL (80-100); MEAN CORPUSCULAR HEMOGLOBIN 28.1 pg (25-34); MEAN CORPUSCULAR HGB CONC 31.7 g/dl (32-36); MEAN PLATELET VOLUME 8.8 fL (7.4-10.4); PLATELET COUNT 191 K/uL (130-400); RED BLOOD COUNT 3.49 M/uL (4.2-5.4); WHITE BLOOD COUNT 6.31 K/uL (4.8-10.8)
[2017-03-16 08:38] LABS: BUN/CREATININE RATIO 17.5 (10-20); CALCIUM 7.1 mg/dl (8.5-10.1); CREATININE 0.64 mg/dl (0.60-1.20); POTASSIUM 3.3 mmol/L (3.5-5.1)
[2017-03-16] MEDS: FLUTICASONE/SALMETEROL 250/50 (ADVAIR) 14 PUFF/1 INHALER INH SCH ×2 (08:53→21:17)
[2017-03-16] MEDS ORDERED: LEVOTHYROXINE SODIUM INJ 37.5 MCG in SYRINGE 0 ML IV SCH (09:00)
--- NOTE | 2017-03-16 09:34 | DIAGNOSTIC IMAGING REPORT ---
PA CHEST WITH ABDOMINAL SERIES CLINICAL HISTORY: Generalized abdominal pain. FINDINGS: A PA chest radiograph is compared to study dated 06/16/2016. A left subclavian central venous infusion port is unchanged in position. The cardiomediastinal silhouette is unremarkable. There is atherosclerotic calcification of the thoracic aorta. The lungs and pleural spaces are clear. No pneumothorax is seen. The skeletal structures are osteopenic. The bony thorax is grossly intact. Supine and erect abdominal radiographs are correlated with abdominal CT dated 03/15/2017. There is no radiographic evidence of high-grade bowel obstruction. Mildly distended and gas-filled loops of small bowel containing air-fluid levels are seen in the mid abdomen. These loops measure up to 4 cm in diameter. Colonic fecal retention is observed. No evidence of intraperitoneal free air is seen. There are no abnormal abdominal calcifications. Surgical clips project over the mid abdomen. Excreted contrast fills the bladder. There is mild lumbosacral spondylosis. The lumbosacral spine and bony pelvis appear intact. IMPRESSION: 1. No active disease in the chest. 2. There is no radiographic evidence of high-grade small bowel obstruction. 3. Mildly distended and gas-filled loops within air-fluid levels are noted in the midabdomen. This likely corresponds to yesterday's CT findings and may represent low-grade/partial bowel obstruction. Electronically signed by: Wesley Barnett M.D. 03/16/2017 9:33 AM Dictated Date/Time: 03/16/2017 9:30 AM
[2017-03-16 15:15] VITALS: BP 106/62; PULSE 71; TEMP 36.9; O2SAT 97
[2017-03-16] MEDS ORDERED: PROMETHAZINE HCL 25 MG TAB PO PRN (18:00)
[2017-03-16] MEDS ORDERED: ONDANSETRON 8 MG TAB PO PRN (18:00)
[2017-03-16] MEDS ORDERED: RANITIDINE HCL 150 MG TAB PO SCH (18:00)
--- NOTE | 2017-03-16 19:15 | Progress Note ---
Internal Med Progress Note Date of Service: Mar 16, 2017. Provider Documentation: SUBJECTIVE: having pain and discomfort in lower abdomen able to have bowel movement earlier passing gas tolerating clears , no nausea /vomiting OBJECTIVE: Vital Signs-as noted below Exam: General- no sign of distress Eyes-sclera non icteric ENT-NAd Neck-no JVD Lungs-CTA Heart-regular S1/S2 Abdomen-soft, mild tenderness on lower abdomen , bowel sound hypoactive Extremities-no lower ext edema Neuro-AAO x3, no focal deficit Lab data as noted below. ASSESSMENT & PLAN: SMALL BOWL OBSTRUCTION : presented with abdominal pain hx of ovarian Ca with extensive debulking surgery in may 2014 CT abdomen /pelvis: 1. At least 2 focal areas of segmental narrowing of the distal small bowel creating more proximal partial small bowel obstructive change. 2. Etiology is not clear although possibly of an internal adhesions/scarring given the patient's postoperative status must be considered. 3. Scattered adenopathy within the abdomen, mesenteric, and to a lesser extent pelvis generally similar as compared to the prior study. 4. Trace perihepatic ascites appreciate input form Dr Carbajal conservative approach for now xray of abdomen /pelvis this AM : There is no radiographic evidence of high-grade small bowel obstruction. Mildly distended and gas-filled loops within air-fluid levels are noted in the midabdomen. This likely corresponds to yesterday's CT findings and may represent low-grade/partial bowel obstruction. diet advanced to clears CT abdomen /pelvis with PO contrast ordered for AM LOW MG /LOW PHOS : due to above , GI loss with nausea /vomiting replaced , follow lytes METASTATIC OVARIAN CA ; -s/p abdominal surgery last chemotherapy was Feb 04. cont follow up with Oncology Dr Marshall at [facility] Oncology ANXIETY DISORDER : resumed Cymbalta , Ativan PRN HYPOTHYROIDISM ; cont Synthroid HX OF PE : hold Coumadin in setting of bowel obstruction DVT PROPHYLAXIS INR elevated DISPOSITION to be determined expected to return home when medically stable for any type of surgical intervention pt will need to be transferred to [facility] [place] Vital Signs: Date Time Temp Pulse Resp B/P (MAP) Pulse Ox O2 Delivery O2 Flow Rate FiO2 03/17/17 07:30 36.8 61 18 139/85 (103) 91 Room Air 03/16/17 23:32 CPAP 03/16/17 23:01 36.8 68 16 110/67 (81) 97 CPAP 03/16/17 16:00 Room Air 03/16/17 15:15 36.9 71 16 106/62 (77) 97 Room Air Lab Results: Results Past 24 Hours Test 03/16/17 07:43 03/16/17 10:26 03/16/17 11:55 03/17/17 04:02 Range/Units White Blood Count 6.31 4.8-10.8 K/uL Red Blood Count 3.49 4.2-5.4 M/uL Hemoglobin 9.8 12.0-16.0 g/dL Hematocrit 30.9 37-47 % Mean Corpuscular Volume 88.5 80-100 fL Mean Corpuscular Hemoglobin 28.1 25-34 pg Mean Corpuscular Hemoglobin Concent 31.7 32-36 g/dl RDW Standard Deviation 47.6 36.4-46.3 fL RDW Coefficient of Variation 14.7 11.5-14.5 % Platelet Count 191 130-400 K/uL Mean Platelet Volume 8.8 7.4-10.4 fL Prothrombin Time 35.5 9.0-12.0 SECONDS Prothromb Time International Ratio 3.2 0.9-1.1 Sodium Level 145 136-145 mmol/L Potassium Level 3.3 3.5-5.1 mmol/L Chloride Level 114 98-107 mmol/L Carbon Dioxide Level 25 21-32 mmol/L Anion Gap 6.0 3-11 mmol/L Blood Urea Nitrogen 11 7-18 mg/dl Creatinine 0.64 0.60-1.20 mg/dl Est Creatinine Clear Calc Drug Dose 99.7 ml/min Estimated GFR () 104.1 Estimated GFR (Non- 89.8 BUN/Creatinine Ratio 17.5 10-20 Random Glucose 119 70-99 mg/dl Calcium Level 7.1 8.5-10.1 mg/dl Bedside Glucose 172 153 114 70-90 mg/dl Test 03/17/17 05:18 Range/Units Prothrombin Time 29.6 9.0-12.0 SECONDS Prothromb Time International Ratio 2.7 0.9-1.1 Sodium Level 143 136-145 mmol/L Potassium Level 3.8 3.5-5.1 mmol/L Chloride Level 112 98-107 mmol/L Carbon Dioxide Level 26 21-32 mmol/L Anion Gap 5.0 3-11 mmol/L Blood Urea Nitrogen 7 7-18 mg/dl Creatinine 0.67 0.60-1.20 mg/dl Est Creatinine Clear Calc Drug Dose 95.2 ml/min Estimated GFR () 102.5 Estimated GFR (Non- 88.4 BUN/Creatinine Ratio 10.5 10-20 Random Glucose 119 70-99 mg/dl Calcium Level 7.6 8.5-10.1 mg/dl Magnesium Level 2.1 1.8-2.4 mg/dl
[2017-03-16] MEDS: POTASSIUM CHLR 10 MEQ / WTR 10 MEQ in PREMIXED WATER 100 ML IV SCH ×2 (21:15→22:06)
[2017-03-16] MEDS: NSS + 20MEQ KCL 1000ML 1,000 ML IV SCH (21:16)
[2017-03-16] MEDS: INSULIN GLARGINE SOLOSTAR 100 UNITS/ML 3 ML PEN SC SCH (21:19)
[2017-03-16] MEDS: MAGNESIUM OXIDE 400 MG TAB PO SCH (21:26)
[2017-03-16] MEDS: GABAPENTIN 100 MG CAP PO SCH ×2 (21:27)
[2017-03-16] MEDS: CALCIUM 600MG + VIT D 400 IU TAB PO SCH (21:27)
[2017-03-16] MEDS: ROSUVASTATIN CALCIUM 5 MG TAB PO SCH (21:29)
[2017-03-16] MEDS: LORAZEPAM 0.5 MG TAB PO PRN (21:35)
[2017-03-16] MEDS: TAPENTADOL HCL 50 MG TAB PO PRN (21:35)
[2017-03-16 23:01] VITALS: BP 110/67; PULSE 68; TEMP 36.8; O2SAT 97
[2017-03-17] MEDS: NSS + 20MEQ KCL 1000ML 1,000 ML IV SCH ×2 (05:39→16:04)
[2017-03-17] MEDS: LEVOTHYROXINE 75 MCG TAB PO SCH (05:39)
[2017-03-17 05:53] LABS: INR 2.7 (0.9-1.1); PROTHROMBIN TIME (PATIENT) 29.6 SECONDS (9.0-12.0)
[2017-03-17 06:24] LABS: BUN/CREATININE RATIO 10.5 (10-20); CALCIUM 7.6 mg/dl (8.5-10.1); CREATININE 0.67 mg/dl (0.60-1.20); MAGNESIUM 2.1 mg/dl (1.8-2.4); POTASSIUM 3.8 mmol/L (3.5-5.1)
[2017-03-17 07:30] VITALS: BP 139/85; PULSE 61; TEMP 36.8; O2SAT 91
[2017-03-17] MEDS ORDERED: OPTIRAY 320 IV PRN (08:00)
--- NOTE | 2017-03-17 08:51 | DIAGNOSTIC IMAGING REPORT ---
CT OF THE ABDOMEN AND PELVIS WITH CONTRAST CLINICAL HISTORY: Abdominal pain. Ovarian cancer. Evaluate for small bowel obstruction. COMPARISON STUDY: CT of the abdomen and pelvis March 15, 2017 and abdominal series March 16, 2017. TECHNIQUE: Following IV administration of 93 mL of Optiray-320, axial images of the abdomen and pelvis were obtained from the lung bases to the proximal femurs. Images were reviewed in the axial, sagittal, and coronal planes. IV contrast was administered without complication. A dose lowering technique was utilized adhering to the principles of ALARA. Oral contrast was administered. CT DOSE: 1103.12 mGy.cm FINDINGS: There is a trace right pleural effusion. The liver, spleen, adrenal glands, kidneys and pancreas are unremarkable. Several left upper quadrant omental/peritoneal nodules are similar to CT of January 17, 2017. The largest measures 1.3 x 0.7 cm. There is no biliary or pancreatic ductal dilatation. Oral contrast reaches the colon. Therefore, there is no evidence for a high grade small bowel obstruction. A few apparent areas of narrowing within the mid to distal small bowel are noted but contrast passes beyond the site and there is no significant small bowel dilatation. No pneumatosis, free air or portal venous gas is present. Trace mesenteric fluid/nodularity is unchanged. There is sigmoid diverticulosis without evidence for acute diverticulitis. No suspicious osseous lesions are present. The uterus and ovaries are surgically absent. There is evidence for previous omentectomy. IMPRESSION: 1. No evidence for a small bowel obstruction. A few apparent areas of narrowing within the mid to distal small bowel; however, oral contrast reaches the colon and no significant small bowel dilatation to suggest a small bowel obstruction. 2. No significant change in several left upper quadrant peritoneal/mental nodules which suggest recurrent disease. 3. Trace right pleural effusion. 4. No significant change in trace mesenteric fluid/nodularity. Electronically signed by: Shan Garcia M.D. 03/17/2017 8:49 AM Dictated Date/Time: 03/17/2017 8:35 AM
[2017-03-17] MEDS: CALCIUM 600MG + VIT D 400 IU TAB PO SCH ×2 (09:03→21:21)
[2017-03-17] MEDS: DULOXETINE (CYMBALTA) 30 MG CAP PO SCH (09:03)
[2017-03-17] MEDS: MAGNESIUM OXIDE 400 MG TAB PO SCH ×2 (09:04→21:22)
[2017-03-17] MEDS: GABAPENTIN 100 MG CAP PO SCH ×3 (09:04→21:22)
[2017-03-17] MEDS: FLUTICASONE/SALMETEROL 250/50 (ADVAIR) 14 PUFF/1 INHALER INH SCH ×2 (09:05→21:20)
--- NOTE | 2017-03-17 09:48 | Surgery Progress Note ---
Surgery Progress Note Date of Service Mar 17, 2017. Subjective tolerated clear liquids and CT prep CT- showed good transit of contrast to colon- some areas of narrowing in pelvic small bowel- ? adhesions/ ?tumor Objective Vital Signs: Date Time Temp Pulse Resp B/P (MAP) Pulse Ox O2 Delivery O2 Flow Rate FiO2 03/17/17 07:30 36.8 61 18 139/85 (103) 91 Room Air 03/16/17 23:32 CPAP 03/16/17 23:01 36.8 68 16 110/67 (81) 97 CPAP 03/16/17 16:00 Room Air 03/16/17 15:15 36.9 71 16 106/62 (77) 97 Room Air General Appearance: no apparent distress Respiratory/Chest: no respiratory distress Laboratory Results: Results Past 24 Hours Test 03/16/17 10:26 03/16/17 11:55 03/17/17 04:02 03/17/17 05:18 Range/Units Bedside Glucose 172 153 114 70-90 mg/dl Prothrombin Time 29.6 9.0-12.0 SECONDS Prothromb Time International Ratio 2.7 0.9-1.1 Sodium Level 143 136-145 mmol/L Potassium Level 3.8 3.5-5.1 mmol/L Chloride Level 112 98-107 mmol/L Carbon Dioxide Level 26 21-32 mmol/L Anion Gap 5.0 3-11 mmol/L Blood Urea Nitrogen 7 7-18 mg/dl Creatinine 0.67 0.60-1.20 mg/dl Est Creatinine Clear Calc Drug Dose 95.2 ml/min Estimated GFR () 102.5 Estimated GFR (Non- 88.4 BUN/Creatinine Ratio 10.5 10-20 Random Glucose 119 70-99 mg/dl Calcium Level 7.6 8.5-10.1 mg/dl Magnesium Level 2.1 1.8-2.4 mg/dl Assessment & Plan 03/17/17- CT- good transit of contrast- adv to full liquids and adjust diet to low residue and supplements. If recurs , may need eval in [place]/? surgery- hopefully will stabilize 03/16/17- no acute chgs- I suspect this is from tumor, but could just be adhesions. Check KUB. Cont NPO exc ice. check labs. 03/16/17- no acute chgs- I suspect this is from tumor, but could just be adhesions. Check KUB. Cont NPO exc ice. check labs.
[2017-03-17 10:51] VITALS: O2SAT 91
[2017-03-17 11:14] VITALS: BP 122/73; PULSE 66; TEMP 36.8; O2SAT 95
[2017-03-17 15:57] VITALS: BP 127/76; PULSE 60; TEMP 36.6; O2SAT 98
--- NOTE | 2017-03-17 17:38 | Progress Note ---
Internal Med Progress Note Date of Service: Mar 17, 2017. Provider Documentation: SUBJECTIVE: diet advanced to full liquid tolerating well no nausea/vomiting OBJECTIVE: Vital Signs-as noted below Exam: General- no sign of distress Eyes-sclera non icteric ENT-NAd Neck-no JVD Lungs-CTA Heart-regular S1/S2 Abdomen-soft, mild tenderness on lower abdomen , bowel sound hypoactive Extremities-no lower ext edema Neuro-AAO x3, no focal deficit Lab data as noted below. ASSESSMENT & PLAN: SMALL BOWL OBSTRUCTION : presented with abdominal pain hx of ovarian Ca with extensive debulking surgery in may 2014 CT abdomen /pelvis: appreciate input form Dr Carbajal plan for conservative approach with bowel rest , IV hydration -expecting for spontaneous resolution of obstruction given hx of metastatic ovarian CA and extensive abdominal debulking surgery hx -for any type of surgical intervention pt will need to be tx to tertiary care - preferably to [facility] CT abdomen /pelvis with PO contrast this AM shows : 1. No evidence for a small bowel obstruction. A few apparent areas of narrowing within the mid to distal small bowel; however, oral contrast reaches the colon and no significant small bowel dilatation to suggest a small bowel obstruction. pt is clinically improving diet advanced to full liquid , plan to advance to low residue diet in AM if pt able to tolerate LOW MG /LOW PHOS : corrected METASTATIC OVARIAN CA ; -s/p abdominal surgery last chemotherapy was Feb 04. cont follow up with Oncology Dr Marshall at [facility] Oncology ANXIETY DISORDER : resumed Cymbalta , Ativan PRN HYPOTHYROIDISM ; cont Synthroid HX OF PE : INR remains elevated Coumadin kept on hold DVT PROPHYLAXIS INR elevated DISPOSITION possible discharge home in 1-2 days if medically stable Vital Signs: Date Time Temp Pulse Resp B/P (MAP) Pulse Ox O2 Delivery O2 Flow Rate FiO2 03/18/17 07:34 36.5 57 17 116/71 (86) 97 CPAP 03/18/17 04:00 36.5 66 16 101/47 (65) 91 Room Air 03/17/17 23:31 Room Air CPAP 03/17/17 22:57 36.6 66 16 106/65 (79) 91 Room Air 03/17/17 20:09 36.5 67 18 114/68 (83) 96 Room Air 03/17/17 16:00 Room Air 03/17/17 15:57 36.6 60 16 127/76 (93) 98 Room Air 03/17/17 11:14 36.8 66 20 122/73 (89) 95 Room Air Lab Results: Results Past 24 Hours Test 03/17/17 11:53 03/17/17 16:11 03/17/17 20:06 03/17/17 23:36 Range/Units Bedside Glucose 153 154 143 122 70-90 mg/dl Test 03/18/17 04:06 03/18/17 05:48 03/18/17 08:00 Range/Units Bedside Glucose 122 119 70-90 mg/dl Prothrombin Time 24.0 9.0-12.0 SECONDS Prothromb Time International Ratio 2.2 0.9-1.1 Sodium Level 144 136-145 mmol/L Potassium Level 4.1 3.5-5.1 mmol/L Chloride Level 112 98-107 mmol/L Carbon Dioxide Level 28 21-32 mmol/L Anion Gap 4.0 3-11 mmol/L Blood Urea Nitrogen 3 7-18 mg/dl Creatinine 0.70 0.60-1.20 mg/dl Est Creatinine Clear Calc Drug Dose 91.2 ml/min Estimated GFR () 101.0 Estimated GFR (Non- 87.2 BUN/Creatinine Ratio 4.9 10-20 Random Glucose 107 70-99 mg/dl Calcium Level 7.8 8.5-10.1 mg/dl
[2017-03-17 20:09] VITALS: BP 114/68; PULSE 67; TEMP 36.5; O2SAT 96
[2017-03-17] MEDS: LORAZEPAM 0.5 MG TAB PO PRN (21:19)
[2017-03-17] MEDS: TAPENTADOL HCL 50 MG TAB PO PRN (21:20)
[2017-03-17] MEDS: ROSUVASTATIN CALCIUM 5 MG TAB PO SCH (21:21)
[2017-03-17] MEDS: INSULIN GLARGINE SOLOSTAR 100 UNITS/ML 3 ML PEN SC SCH (21:26)
[2017-03-17 22:57] VITALS: BP 106/65; PULSE 66; TEMP 36.6; O2SAT 91
[2017-03-18] MEDS: NSS + 20MEQ KCL 1000ML 1,000 ML IV SCH ×2 (01:53→11:57)
[2017-03-18 04:00] VITALS: BP 101/47; PULSE 66; TEMP 36.5; O2SAT 91
[2017-03-18] MEDS: LEVOTHYROXINE 75 MCG TAB PO SCH (05:50)
--- NOTE | 2017-03-18 06:24 | Surgery Progress Note ---
Surgery Progress Note Date of Service Mar 18, 2017. Subjective resting comfortably, no emesis tolerating full liquid diet Objective Vital Signs: Date Time Temp Pulse Resp B/P (MAP) Pulse Ox O2 Delivery O2 Flow Rate FiO2 03/18/17 04:00 36.5 66 16 101/47 (65) 91 Room Air 03/17/17 23:31 Room Air CPAP 03/17/17 22:57 36.6 66 16 106/65 (79) 91 Room Air 03/17/17 20:09 36.5 67 18 114/68 (83) 96 Room Air 03/17/17 16:00 Room Air 03/17/17 15:57 36.6 60 16 127/76 (93) 98 Room Air 03/17/17 11:14 36.8 66 20 122/73 (89) 95 Room Air 03/17/17 10:51 91 Room Air 03/17/17 07:30 Room Air 03/17/17 07:30 36.8 61 18 139/85 (103) 91 Room Air General Appearance: no apparent distress Respiratory/Chest: no respiratory distress Abdomen: soft Laboratory Results: Results Past 24 Hours Test 03/17/17 07:58 03/17/17 11:53 03/17/17 16:11 03/17/17 20:06 Range/Units Bedside Glucose 183 153 154 143 70-90 mg/dl Test 03/17/17 23:36 03/18/17 04:06 03/18/17 05:48 Range/Units Bedside Glucose 122 122 70-90 mg/dl Assessment & Plan 03/18/17- appears to be stable from surgical standpoint and can be d/c home today unless acutely worsens. add senna syrup 03/17/17- CT- good transit of contrast- adv to full liquids and adjust diet to low residue and supplements. If recurs , may need eval in [place]/? surgery- hopefully will stabilize 03/16/17- no acute chgs- I suspect this is from tumor, but could just be adhesions. Check KUB. Cont NPO exc ice. check labs. 03/17/17- CT- good transit of contrast- adv to full liquids and adjust diet to low residue and supplements. If recurs , may need eval in [place]/? surgery- hopefully will stabilize 03/16/17- no acute chgs- I suspect this is from tumor, but could just be adhesions. Check KUB. Cont NPO exc ice. check labs.
[2017-03-18 06:40] LABS: INR 2.2 (0.9-1.1)
[2017-03-18 07:22] LABS: BUN/CREATININE RATIO 4.9 (10-20); CALCIUM 7.8 mg/dl (8.5-10.1); CREATININE 0.7 mg/dl (0.60-1.20); POTASSIUM 4.1 mmol/L (3.5-5.1)
[2017-03-18 07:34] VITALS: BP 116/71; PULSE 57; TEMP 36.5; O2SAT 97
[2017-03-18] MEDS: CALCIUM 600MG + VIT D 400 IU TAB PO SCH (08:43)
[2017-03-18] MEDS: GABAPENTIN 100 MG CAP PO SCH (08:43)
[2017-03-18] MEDS: FLUTICASONE/SALMETEROL 250/50 (ADVAIR) 14 PUFF/1 INHALER INH SCH (08:43)
[2017-03-18] MEDS: MAGNESIUM OXIDE 400 MG TAB PO SCH (08:43)
[2017-03-18] MEDS: DULOXETINE (CYMBALTA) 30 MG CAP PO SCH (08:44)
[2017-03-18] MEDS ORDERED: SENOKOT PO SCH (09:00)
[2017-03-18] MEDS ORDERED: [UNRECOGNIZED DRUG - OTHER] PO (13:48)
--- NOTE | 2017-03-18 13:50 | Discharge Instructions ---
Discharge Instructions Date of Service Mar 18, 2017. Admission Reason for Admission: SBO Discharge Discharge Diagnosis / Problem: SMALL BOWEL OBSTRUCTION /RESOLVED Discharge Goals Goal(s): Decrease discomfort, Improve disease control, Diagnostic testing, Therapeutic intervention Activity Recommendations Activity Limitations: resume your previous activity . Instructions / Follow-Up Instructions / Follow-Up HOSPITAL FOLLOW UP 03/23/2017 11:00 AM Marcelina Uriarte MD General Internal Medicine [facility] DO NOT TAKE METFORMIN TODAY , CAN START FORM TOMORROW 03/19/17 ( HAD CONTRAST CT ON 03/17/17 ) CONTINUE TO TAKE LOW RESIDUE/LOW FIBER DIET -CT SCAN SHOWS NARROWING OF YOU BOWEL DUE TO PRIOR SURGERY HIGH FIBER CONTENT CAN LEAD TO OBSTRUCTION DRINK PLENTY OF FLUID Current Hospital Diet Patient's current hospital diet: Low Fiber Diet Discharge Diet Recommended Diet: Low Fiber Diet Pending Studies Studies pending at discharge: no Medical Emergencies . Who to Call and When: Medical Emergencies: If at any time you feel your situation is an emergency, please call 911 immediately. . Non-Emergent Contact Non-Emergency issues call your: Primary Care Provider . . "Provider Documentation" section prepared by Silvana Kingston. . VTE Core Measure Inpt VTE Proph given/why not?: Warfarin (Coumadin)
[2017-03-18 14:53] VITALS: BP 116/69; PULSE 66; TEMP 36.9; O2SAT 90
--- NOTE | 2017-03-18 16:21 | Progress Note ---
Internal Med Progress Note Date of Service: Mar 18, 2017. Provider Documentation: SUBJECTIVE: no complain of abdominal pain or discomfort no nausea tolerating low residue diet well had bowel movement evaluated by Surgery this AM stable to be discharged home OBJECTIVE: Vital Signs-as noted below Exam: General- no sign of distress Eyes-sclera non icteric ENT-NAd Neck-no JVD Lungs-CTA Heart-regular S1/S2 Abdomen-soft, non tender, active bowel sound Extremities-no lower ext edema Neuro-AAO x3, no focal deficit Lab data as noted below. ASSESSMENT & PLAN: SMALL BOWL OBSTRUCTION : resolved presented with abdominal pain hx of ovarian Ca with extensive debulking surgery in may 2014 CT abdomen /pelvis: appreciate input form Dr Carbajal plan for conservative approach with bowel rest , IV hydration -expecting for spontaneous resolution of obstruction given hx of metastatic ovarian CA and extensive abdominal debulking surgery hx -for any type of surgical intervention pt will need to be tx to tertiary care - preferably to [facility] CT abdomen /pelvis with PO contrast this AM shows : 1. No evidence for a small bowel obstruction. A few apparent areas of narrowing within the mid to distal small bowel; however, oral contrast reaches the colon and no significant small bowel dilatation to suggest a small bowel obstruction. pt is clinically improving low residue /low fiber diet tolerating well stable to be discharged home LOW MG /LOW PHOS : corrected METASTATIC OVARIAN CA ; -s/p abdominal surgery last chemotherapy was Feb 04. cont follow up with Oncology Dr Marshall at [facility] Oncology ANXIETY DISORDER : resumed Cymbalta , Ativan PRN HYPOTHYROIDISM ; cont Synthroid HX OF PE : Coumadin resumed DVT PROPHYLAXIS Coumadin DISPOSITION stable to be discharged home today Vital Signs: Date Time Temp Pulse Resp B/P (MAP) Pulse Ox O2 Delivery O2 Flow Rate FiO2 03/18/17 14:53 36.9 66 16 116/69 (85) 90 Room Air 03/18/17 08:30 Room Air 03/18/17 07:34 36.5 57 17 116/71 (86) 97 CPAP 03/18/17 04:00 36.5 66 16 101/47 (65) 91 Room Air 03/17/17 23:31 Room Air CPAP 03/17/17 22:57 36.6 66 16 106/65 (79) 91 Room Air 03/17/17 20:09 36.5 67 18 114/68 (83) 96 Room Air Lab Results: Results Past 24 Hours Test 03/17/17 20:06 03/17/17 23:36 03/18/17 04:06 03/18/17 05:48 Range/Units Bedside Glucose 143 122 122 70-90 mg/dl Prothrombin Time 24.0 9.0-12.0 SECONDS Prothromb Time International Ratio 2.2 0.9-1.1 Sodium Level 144 136-145 mmol/L Potassium Level 4.1 3.5-5.1 mmol/L Chloride Level 112 98-107 mmol/L Carbon Dioxide Level 28 21-32 mmol/L Anion Gap 4.0 3-11 mmol/L Blood Urea Nitrogen 3 7-18 mg/dl Creatinine 0.70 0.60-1.20 mg/dl Est Creatinine Clear Calc Drug Dose 91.2 ml/min Estimated GFR () 101.0 Estimated GFR (Non- 87.2 BUN/Creatinine Ratio 4.9 10-20 Random Glucose 107 70-99 mg/dl Calcium Level 7.8 8.5-10.1 mg/dl Test 03/18/17 08:00 03/18/17 12:06 Range/Units Bedside Glucose 119 140 70-90 mg/dl
--- NOTE | 2017-03-18 16:23 | Discharge Summary ---
Discharge Summary Date of Service Mar 18, 2017. Discharge Summary Admission Date: Mar 15, 2017 at 22:23 Discharge Date: Mar 18, 2017 Discharge Disposition: Home Principal Diagnosis: SMALL BOWEL OBSTRUCTION /RESOLVED Procedures: CT ABDOMEN /PELVIS : IMPRESSION: 1. No evidence for a small bowel obstruction. A few apparent areas of narrowing within the mid to distal small bowel; however, oral contrast reaches the colon and no significant small bowel dilatation to suggest a small bowel obstruction. 2. No significant change in several left upper quadrant peritoneal/mental nodules which suggest recurrent disease. 3. Trace right pleural effusion. 4. No significant change in trace mesenteric fluid/nodularity. Consultations: SURGERY DR CARBAJAL Medication Reconciliation New Medications: Senna (Senna-Grx) 5 Ml/8.8 Mg Syrp 5 ML PO BID for 30 Days, #300 ML 2 Refills Continued Medications: Albuterol Hfa (Ventolin Hfa) 200 Puffs/35843 Mcg Aers 2 PUFFS INH Q4 PRN for Wheezing Calcium/Vitamin D (Os-Yao 500 Plus D) Tab 1 TAB PO BID, TAB Dexamethasone (Decadron) 4 Mg Tab 4 MG PO UD take 5 pills the night before and the morning of chemotherapy Duloxetine HCl (Cymbalta) 30 Mg Cap 60 MG PO QAM for 30 Days, #60 CAP 2 Refills do not crush Ergocalciferol (Vitamin D 01726 Unit) 50,000 Unit Cap 1 TAB PO WK, CAP Fluticasone Prop/Salmeterol (Advair Diskus 250/50 60 Dose) 1 Ea Aerp 1 PUFF PO BID Gabapentin (Gabapentin) 100 Mg Cap 200 MG PO QPM Gabapentin (Neurontin) 100 Mg Cap 100 MG PO BID Levothyroxine Sodium (Levothyroxine Sodium) 75 Mcg Tab 75 MCG PO QAM Lorazepam (Ativan) 0.5 Mg Tab 0.5 MG PO Q4 PRN for Anxiety Magnesium Oxide (Mag-Ox) 400 Mg Tab 400 MG PO BID, TAB Metformin Hcl Er (Glucophage Er) 500 Mg Tab 1000 MG PO DAILY Ondansetron (Ondansetron HCl) 8 Mg Tab 8 MG PO Q8 PRN for Nausea Polyethylene Glycol 3350 (Miralax) 1 Pow Pow 17 GM PO DAILY Promethazine HCl (Promethazine HCl) 25 Mg Tab 25 MG PO Q4 PRN for Nausea Ranitidine HCl (Ranitidine HCl) 150 Mg Tab 150 MG PO UD take 1 tab twice a day for 5 days prior to chemotherapy Rosuvastatin Calcium (Crestor) 5 Mg Tab 5 MG PO QPM, TAB Tapentadol Hcl (Nucynta) 50 Mg Tab 50 MG PO Q4 PRN for Pain, TAB Triamterene/Hctz (Triamterene/Hctz 37.5-25MG) 1 Tab Tab 1 TAB PO QAM, TAB Warfarin Sod (Coumadin) 2.5 Mg Tab 2.5 MG PO 5XWK take daily on ,tue,,tue,sundays Warfarin Sod (Coumadin) 2.5 Mg Tab 5 MG PO 2XWK take 2 tablets daily on mondays & fridays Admission Information HPI (per Admitting provider): 72 yo F with metastatic ovarian cancer presents with intermittent generalized abdominal pain that began two days ago. She reports this intermittent pain with no triggers or alleviating factors mentioned and when she saw her movie stunt performer today in the office, she did not have any pain on exam. When she got home, however, she was able to entertain friends and eat lunch but then subsequently developed worsening pain with vomiting that intensified. She does report having a BM today. She denies any fevers, chills, headache, diarrhea or constipation recently and was feeling well prior to this. Last chemo treatment was Feb 04. She was scheduled to see Dr. Marshall at the end of this week to discuss future directions and her recent CT scan from last week. Her daughters are at bedside and all questions were answered. I discussed the case with Dr. Carbajal who is the General Surgeon sectionizer. The patient did not receive an NGT in the ER. Physical Exam (per Admitting): General Appearance: WD/WN, + mild distress Head: normocephalic, atraumatic Eyes: normal inspection, PERRL, sclerae normal ENT: normal ENT inspection, hearing grossly normal Neck: supple, trachea midline Respiratory/Chest: lungs clear, normal breath sounds, no respiratory distress, no accessory muscle use, + pertinent finding (port to left anterior chest wall-accessed) Cardiovascular: regular rate, rhythm, no edema, no gallop, no JVD, no murmur , normal peripheral pulses Abdomen/GI: soft, + tenderness (diffuse worse in superior abdomen-this is just after pain meds), + abnormal bowel sounds (hypoactive) Back: normal inspection, no CVA tenderness Extremities/Musculoskelatal: normal inspection, no calf tenderness, no pedal edema Neurologic/Psych: material expediter II-XII nml as tested, no motor/sensory deficits, alert , normal mood/affect, oriented x 3 Skin: normal color, warm/dry, no rash Hospital Course SMALL BOWL OBSTRUCTION : resolved presented with abdominal pain hx of ovarian Ca with extensive debulking surgery in may 2014 CT abdomen /pelvis: appreciate input form Dr Carbajal plan for conservative approach with bowel rest , IV hydration -expecting for spontaneous resolution of obstruction given hx of metastatic ovarian CA and extensive abdominal debulking surgery hx -for any type of surgical intervention pt will need to be tx to tertiary care - [facility] to [facility] CT abdomen /pelvis with PO contrast this AM shows : 1. No evidence for a small bowel obstruction. A few apparent areas of narrowing within the mid to distal small bowel; however, oral contrast reaches the colon and no significant small bowel dilatation to suggest a small bowel obstruction. pt is clinically improving low residue /low fiber diet tolerating well stable to be discharged home LOW MG /LOW PHOS : corrected METASTATIC OVARIAN CA ; -s/p abdominal surgery last chemotherapy was Feb 04. cont follow up with Oncology Dr Marshall at [facility] ANXIETY DISORDER : resumed Cymbalta , Ativan PRN HYPOTHYROIDISM ; cont Synthroid HX OF PE : Coumadin resumed DVT PROPHYLAXIS Coumadin DISPOSITION stable to be discharged home today Total time spent on discharge = 35 mins This includes examination of the patient, discharge planning, medication reconciliation, and communication with other providers. Discharge Instructions Discharge Instructions Date of Service Mar 18, 2017. Admission Reason for Admission: SBO Discharge Discharge Diagnosis / Problem: SMALL BOWEL OBSTRUCTION /RESOLVED Discharge Goals Goal(s): Decrease discomfort, Improve disease control, Diagnostic testing, Therapeutic intervention Activity Recommendations Activity Limitations: resume your previous activity . Instructions / Follow-Up Instructions / Follow-Up HOSPITAL FOLLOW UP 03/23/2017 11:00 AM Marcelina Uriarte MD General Internal Medicine [facility] DO NOT TAKE METFORMIN TODAY , CAN START FORM TOMORROW 03/19/17 ( HAD CONTRAST CT ON 03/17/17 ) CONTINUE TO TAKE LOW RESIDUE/LOW FIBER DIET -CT SCAN SHOWS NARROWING OF YOU BOWEL DUE TO PRIOR SURGERY HIGH FIBER CONTENT CAN LEAD TO OBSTRUCTION DRINK PLENTY OF FLUID Current Hospital Diet Patient's current hospital diet: Low Fiber Diet Discharge Diet Recommended Diet: Low Fiber Diet Pending Studies Studies pending at discharge: no Medical Emergencies . Who to Call and When: Medical Emergencies: If at any time you feel your situation is an emergency, please call 911 immediately. . Non-Emergent Contact Non-Emergency issues call your: Primary Care Provider . . "Provider Documentation" section prepared by Silvana Kingston. . VTE Core Measure Inpt VTE Proph given/why not?: Warfarin (Coumadin) Additional Copies To Marcelina Uriarte M.D. Wolfe, David W., M.D.
[2017-03-18 16:43] VITALS: BP 116/69; PULSE 66; TEMP 36.9; O2SAT 90
== END 2017-03-18 17:25 | disposition home or self-care (01) | DRG 389 ==
LOC: C.EDB 16:34 → C.MSN 22:23 → ENRESERV 22:30
PROVIDERS: ADMIT Hospitalist; ATTEND Hospitalist
DX: K56.5 Intestinal adhesions [bands] with obstruction (postinfection) (principal); C56.9 Malignant neoplasm of unspecified ovary; E87.6 Hypokalemia; E83.42 Hypomagnesemia; F41.9 Anxiety disorder, unspecified; E03.9 Hypothyroidism, unspecified; I10 Essential (primary) hypertension; G47.33 Obstructive sleep apnea (adult) (pediatric); E11.9 Type 2 diabetes mellitus without complications; Z87.19 Personal history of other diseases of the digestive system; Z86.711 Personal history of pulmonary embolism; Z79.01 Long term (current) use of anticoagulants; Z79.52 Long term (current) use of systemic steroids; Z79.84 Long term (current) use of oral hypoglycemic drugs; Z79.899 Other long term (current) drug therapy; Z88.5 Allergy status to narcotic agent; Z88.8 Allergy status to other drugs, medicaments and biological substances; Z83.79 Family history of other diseases of the digestive system; Z83.3 Family history of diabetes mellitus; Z82.49 Family history of ischemic heart disease and other diseases of the circulatory system; Z84.1 Family history of disorders of kidney and ureter; Z82.0 Family history of epilepsy and other diseases of the nervous system

== ENCOUNTER 2017-03-24 06:39 | Emergency (ER) | payer OTHER ==
[~2017-03-24] VITALS: Ht 172.7 cm; Wt 101.0 kg
[~2017-03-24 06:39] MED LIST changes: -BENZ1CAP90 PO; -CZR25 PO; -FLUT0.15 NAE; -GLIM1TAB2 PO; +MAGN400T6 PO; -MGNO400 PO; -NCY50 PO; +TAPE50TA5 PO; +[UNRECOGNIZED DRUG - OTHER] PO
[2017-03-24 06:48] VITALS: Ht 172.7 cm; Wt 101.0 kg
[2017-03-24] MEDS ORDERED: ONDANSETRON INJ 2 MG/ML 2 ML VIAL IV STA ×2 (07:24→09:29)
[2017-03-24] MEDS ORDERED: SODIUM CHLORIDE 0.9% 1000ML 1,000 ML IV STA ×2 (07:24→16:01)
[2017-03-24] MEDS ORDERED: FENTANYL CITRATE INJ 50 MCG/1 ML 2 ML VIAL IV STA ×5 (07:24→21:47)
--- NOTE | 2017-03-24 07:59 | EMERGENCY ROOM VISIT NOTE ---
History First contact with patient: 07:11 Chief Complaint: VOMITING Stated Complaint: VOMITING, SEVERE ABD PAIN Nursing Triage Summary: seen on Tuesday in ER and admitted to hospital for vomiting and r/o bowel obstruction pt has ovarian cancer, finished 6 tx of chemo pt had sudden onset of vomiting that awoke pt at 0400 pt on low fiber diet pt reports "eating well yesterday" pt has abd pain History of Present Illness The patient is a 72 year old female who presents to the Emergency Room with complaints of abdominal pain and nausea/vomiting that started abruptly at 4am this morning. She describes the abdominal pain as diffuse, constant, worse with movement, better with rest, 03/06. She states the nausea is also constant, she has vomited 5 times, states the emesis has been food content and clear, she denies any bloody or bilious emesis. She denies any fevers or chills, chest pain , SOB, back pain, diarrhea, constipation, changes in stool, urinary complaints. PMH significant for ovarian cancer diagnosed in 2013, history of hysterectomy and oophorectomy with surgical debulking of the tumor, no other abdominal surgeries. She is followed by Dr. Marshall, Oncology, and recently completed course of chemotherapy. She was recently admitted to [facility] for the same symptoms , had CT scan on 03/17 that showed narrowing of the small bowel, but no definite bowel obstruction. She was discharged home 6 days ago. Review of Systems A complete 10 point review of systems was reviewed with the patient with pertinent positives and negatives as per history of present illness. All else were negative. Past Medical/Surgical History Medical Problems: (1) Asthma (2) Back pain (3) Bilateral pulmonary embolism (4) Diab Karine Wo Compl, Type Ii Or Unspec Type, Not Uncntrld (5) Hypertension Nos (6) Ovarian cancer (7) Ovarian cancer (8) SBO (small bowel obstruction) Family History Cancer Diabetes mellitus FH: heart disease FHx: gallbladder disease Hypertension Kidney disease Kidney stones Seizures Social History Smoking Status: Never Smoker Alcohol Use: none Drug Use: none Marital Status: Housing Status: lives with significant other Occupation Status: unemployed Current/Historical Medications Scheduled Calcium/Vitamin D (Os-Yao 500 Plus D), 1 TAB PO BID Dexamethasone (Decadron), 4 MG PO UD Duloxetine HCl (Cymbalta), 60 MG PO QAM Ergocalciferol (Vitamin D 28988 Unit), 1 TAB PO WK Fluticasone Prop/Salmeterol (Advair Diskus 250/50 60 Dose), 1 PUFF PO BID Gabapentin (Gabapentin), 200 MG PO QPM Gabapentin (Neurontin), 100 MG PO BID Levothyroxine Sodium (Levothyroxine Sodium), 75 MCG PO QAM Magnesium Oxide (Mag-Ox), 400 MG PO BID Metformin Hcl Er (Glucophage Er), 1,000 MG PO DAILY Polyethylene Glycol 3350 (Miralax), 17 GM PO DAILY Ranitidine HCl (Ranitidine HCl), 150 MG PO UD Rosuvastatin Calcium (Crestor), 5 MG PO QPM Senna (Senna-Grx), 5 ML PO BID Triamterene/Hctz (Triamterene/Hctz 37.5-25MG), 1 TAB PO QAM Warfarin Sod (Coumadin), 2.5 MG PO 5XWK Warfarin Sod (Coumadin), 5 MG PO 2XWK Scheduled PRN Albuterol Hfa (Ventolin Hfa), 2 PUFFS INH Q4 PRN for Wheezing Lorazepam (Ativan), 0.5 MG PO Q4 PRN for Anxiety Ondansetron (Ondansetron HCl), 8 MG PO Q8 PRN for Nausea Promethazine HCl (Promethazine HCl), 25 MG PO Q4 PRN for Nausea Tapentadol Hcl (Nucynta), 50 MG PO Q4 PRN for Pain Physical Exam Vital Signs Date Time Temp Pulse Resp B/P (MAP) Pulse Ox O2 Delivery O2 Flow Rate FiO2 03/24/17 16:13 36.7 68 20 164/91 97 Nasal Cannula 2.5 03/24/17 13:56 16 142/83 98 Room Air 03/24/17 12:58 98 16 120/78 97 Room Air 03/24/17 10:47 63 150/83 96 Nasal Cannula 2.0 03/24/17 09:04 75 20 164/86 94 Nasal Cannula 2.0 03/24/17 08:23 85 20 154/88 93 Room Air 03/24/17 06:48 36.5 73 20 154/89 96 Room Air Physical Exam CONSTITUTIONAL: No acute distress, but does appear uncomfortable. Nontoxic appearing. Dehydrated. Alert and oriented X 4 with normal affect. HEENT: Normocephalic, atraumatic. Pupils equal, round and reactive to light, EOMI. TMs normal. Pharynx normal. Dry mucous membranes. NECK: Supple, full active range of motion without discomfort. RESPIRATORY: Clear to auscultation bilaterally with no wheezing, crackles, rhonchi or stridor. Equal expansion bilaterally. CARDIOVASCULAR: Regular rate and rhythm with no murmurs, rubs or gallops. Normal peripheral perfusion. No edema. GASTROINTESTINAL: Diffuse mid abdominal pain to palpation, mild guarding, no rebound tenderness. No CVA tenderness. Soft, nondistended. Hypoactive bowel sounds present in all quadrants. MUSCULOSKELETAL: Full range of motion of all joints without discomfort. INTEGUMENTARY: No rash or other significant dermatologic conditions noted. NEUROLOGIC: Cranial nerves II-XII grossly intact. No focal neurologic deficits noted. Medical Decision & Procedures ER Provider Diagnostic Interpretation: ABD/PELVIS IV AND ORAL CONT CLINICAL HISTORY: 72 years-old Female presenting with severe abd pain, n/v, eval SBO. TECHNIQUE: Multidetector CT of the abdomen and pelvis was performed after the administration of oral and intravenous contrast. IV contrast: 94 L of Optiray 320. A dose lowering technique was used consistent with the principles of ALARA (as low as reasonably achievable). COMPARISON: 03/17/2017. CT DOSE (mGy.cm): The estimated cumulative dose is 1073.93 mGycm. FINDINGS: Assembler Crimper topogram: Surgical clips noted in the right mid abdomen. Lung bases: Minimal dependent changes likely atelectasis. Normal heart size. Aortic valve atherosclerosis. Trace right pleural effusion. Liver: Perfusional variation along the fissure for the ligamentum teres. Normal morphology. No focal lesion. Patent hepatic vasculature. Trace perihepatic fluid increased from prior. Biliary: No intrahepatic or extrahepatic biliary ductal dilatation. Normal gallbladder. Pancreas: Moderate parenchymal atrophy. Spleen: Normal. Adrenal glands: Normal. Kidneys and ureters: Normal. No hydronephrosis. Bladder: Normal. Pelvic organs: Uterus surgically absent. No adnexal masses. Bowel: Oral contrast has transited to the ileum. Residual prior contrast noted in the colon. Sigmoid diverticulosis. Tethering of the sigmoid colon with suggestion of adhesions in the pelvis. Focal narrowing of the proximal transverse colon adjacent to a surgical clip (series 2 image 46). The ascending colon is nondilated. Normal appendix. Interval development of small bowel dilatation, which measures up to 3.4 cm in diameter. No evidence of an up stream transition point. Multifocal sites of tapering in the superior right pelvis with a kinked configuration of small bowel. Decompressed terminal ileum. Peritoneal cavity: No free fluid or intraperitoneal gas. Multifocal omental and peritoneal soft tissue nodularity again noted primarily in the left upper quadrant. Vasculature: Atherosclerosis of the normal caliber abdominal aorta. IVC patent. Lymph nodes: No enlarged lymph nodes in the abdomen or pelvis. Abdominal wall: Nodularity along the periumbilical region. Musculoskeletal: Degenerative changes of the spine. IMPRESSION: 1. Findings consistent with at least partial high-grade bowel obstruction likely at multiple sites in the right superior pelvis secondary to adhesions. 2. Additional focal narrowing of the proximal transverse colon adjacent to a surgical clip. No distention of the right colon to suggest obstruction at this level. 3. Persistent peritoneal metastases. Laboratory Results 03/24/17 07:43 Red Blood Count 4.52, Mean Corpuscular Volume 86.1, Mean Corpuscular Hemoglobin 29.4, Mean Corpuscular Hemoglobin Concent 34.2, Mean Platelet Volume 9.7, Neutrophils (%) (Auto) 87.2, Lymphocytes (%) (Auto) 9.5, Monocytes (%) (Auto) 2.5, Eosinophils (%) (Auto) 0.2, Basophils (%) (Auto) 0.3, Neutrophils # (Auto) 9.29, Lymphocytes # (Auto) 1.01, Monocytes # (Auto) 0.27, Eosinophils # (Auto) 0.02, Basophils # (Auto) 0.03 03/24/17 07:43 Test 03/24/17 07:43 03/24/17 08:00 03/24/17 08:02 White Blood Count 10.65 K/uL (4.8-10.8) Red Blood Count 4.52 M/uL (4.2-5.4) Hemoglobin 13.3 g/dL (12.0-16.0) Hematocrit 38.9 % (37-47) Mean Corpuscular Volume 86.1 fL (80-100) Mean Corpuscular Hemoglobin 29.4 pg (25-34) Mean Corpuscular Hemoglobin Concent 34.2 g/dl (32-36) Platelet Count 260 K/uL (130-400) Mean Platelet Volume 9.7 fL (7.4-10.4) Neutrophils (%) (Auto) 87.2 % Lymphocytes (%) (Auto) 9.5 % Monocytes (%) (Auto) 2.5 % Eosinophils (%) (Auto) 0.2 % Basophils (%) (Auto) 0.3 % Neutrophils # (Auto) 9.29 K/uL (1.4-6.5) Lymphocytes # (Auto) 1.01 K/uL (1.2-3.4) Monocytes # (Auto) 0.27 K/uL (0.11-0.59) Eosinophils # (Auto) 0.02 K/uL (0-0.5) Basophils # (Auto) 0.03 K/uL (0-0.2) RDW Standard Deviation 47.2 fL (36.4-46.3) RDW Coefficient of Variation 14.9 % (11.5-14.5) Immature Granulocyte % (Auto) 0.3 % Immature Granulocyte # (Auto) 0.03 K/uL (0.00-0.02) Prothrombin Time 23.4 SECONDS (9.0-12.0) Prothromb Time International Ratio 2.1 (0.9-1.1) Anion Gap 9.0 mmol/L (3-11) Est Creatinine Clear Calc Drug Dose 58.3 ml/min Estimated GFR () 58.5 Estimated GFR (Non- 50.5 BUN/Creatinine Ratio 12.7 (10-20) Calcium Level 9.5 mg/dl (8.5-10.1) Total Bilirubin 0.6 mg/dl (0.2-1) Direct Bilirubin 0.2 mg/dl (0-0.2) Aspartate Amino Transf (AST/SGOT) 14 U/L (15-37) Alanine Aminotransferase (ALT/SGPT) 14 U/L (12-78) Alkaline Phosphatase 73 U/L (45-117) Total Protein 7.7 gm/dl (6.4-8.2) Albumin 3.6 gm/dl (3.4-5.0) Lipase 65 U/L (73-393) Urine Color YELLOW Urine Appearance CLEAR (CLEAR) Urine pH 6.5 (4.5-7.5) Urine Specific [place] 1.017 (1.000-1.030) Urine Protein NEG (NEG) Urine Glucose (UA) NEG (NEG) Urine Ketones TRACE (NEG) Urine Occult Blood NEG (NEG) Urine Nitrite NEG (NEG) Urine Bilirubin NEG (NEG) Urine Urobilinogen NEG (NEG) Urine Leukocyte Esterase NEG (NEG) Bedside Lactic Acid Venous 1.03 mmol/L (0.90-1.70) Medications Administered Medications (Trade) Dose Ordered Sig/Alcides Route Start Time Stop Time Status Last Admin Dose Admin Sodium Chloride 1,000 ml @ 999 mls/hr Q1H1M STAT IV 03/24/17 07:24 03/24/17 08:24 DC 03/24/17 08:08 999 MLS/HR Ondansetron HCl (Zofran Inj) 4 mg NOW STAT IV 03/24/17 07:24 03/24/17 07:32 DC 03/24/17 08:07 4 MG Fentanyl Citrate (Fentanyl Inj) 100 mcg NOW STAT IV 03/24/17 07:24 03/24/17 07:32 DC 03/24/17 08:07 100 MCG Ondansetron HCl (Zofran Inj) 4 mg NOW STAT IV 03/24/17 09:29 03/24/17 09:30 DC 03/24/17 09:36 4 MG Metoclopramide HCl (Reglan Inj) 10 mg NOW STAT IV 03/24/17 10:36 03/24/17 10:37 DC 03/24/17 10:42 10 MG Fentanyl Citrate (Fentanyl Inj) 100 mcg NOW STAT IV 03/24/17 12:26 03/24/17 12:27 DC 03/24/17 12:33 100 MCG ECG Indication: vomiting Rate (beats per minute): 58 Rhythm: sinus bradycardia Findings: no acute ischemic change, no ectopy Change: no significant change (03/15/2017) Medical Decision CC: Patient presenting with complaint of abdominal pain and nausea/vomiting Interpretation of Labs: No leukocytosis, no anemia, mild hypokalemia, hyperglycemia, no other significant electrolyte abnormalities, normal renal function, normal liver enzymes and lipase, lactic acid within normal limits, UA shows mild ketones, otherwise negative. Differential Diagnosis: Includes, but not limited to small bowel obstruction, volvulus, intussusception, cholecystitis, cholelithiasis, pancreatitis, dehydration, electrolyte abnormalities, side effects of chemotherapy, among others. Medication Reconciliation: I attest that I have personally reviewed the patient' s current medication list. Vital signs review: I reviewed the patient's vital signs and interpret them as follows: T: Afebrile; BP: Hypertensive; HR: Within normal limits; RR: Within normal limits; Pulse Ox: Within normal limits on room air. Blood pressure screening: The patient was found to have an elevated blood pressure and was referred to their primary doctor for recheck and further treatment. Summary: Patient was evaluated at bedside, history of physical exam performed. Patient is alert and in no acute distress, resting only in the stretcher. She does have significant, diffuse midabdominal tenderness to palpation with slight guarding, no rebound tenderness. Bowel sounds present. She also appears moderately dehydrated with dry mucous membranes and decreased skin turgor. Orders were placed at bedside for labs, UA and culture, POC lactate, IV fluids for hydration, IV fentanyl for pain, IV Zofran for nausea, CT abdomen/pelvis with IV and oral contrast to evaluate for bowel obstruction. Patient discussed with Dr. Cordova, who agrees with my assessment and plan. Labs reviewed as above, no acute abnormalities. CT imaging concerning for developing small bowel obstruction. I discussed with Dr. Borden, general surgery, who evaluated the patient and feel she does not warrant urgent surgical intervention. She did recommend NG tube and conservative therapy. After long discussion with the patient and her family, she prefers to be transferred to [facility] rather than be admitted here, as she feels her symptoms have been getting worse. I discussed over the phone via transfer center with Dr. Medina, gynecology/ oncology, who agrees to accept the patient has a direct admission. I discussed plans for transfer with the patient and her family as well as Dr. Cordova, who are all in agreement. Patient reassessed multiple times throughout ED stay, she is improving after multiple doses of pain medication, antiemetics, and placement of NG tube. She will be kept nothing by mouth at this time. Maintenance IV fluids ordered. Medication Reconcilliation Current Medication List: was personally reviewed by me Blood Pressure Screening Blood pressure disposition: Elevated BP felt to be situational Impression Primary Impression: Partial small bowel obstruction Additional Impression: Dehydration Departure Information Dispostion Transfer Acute Care Facility Condition GOOD Referrals Marcelina Uriarte M.D. (PCP) Patient Instructions [facility] Problem Qualifiers
[2017-03-24 08:02] LABS: BASO % 0.3 %; BASO ABS # 0.03 K/uL (0-0.2); COMPLETE YES; EOS % 0.2 %; HEMATOCRIT 38.9 % (37-47); IG% 0.3 %; LYMPH % 9.5 %; LYMPH ABS # 1.01 K/uL (1.2-3.4); MEAN CELL VOLUME 86.1 fL (80-100); MEAN CORPUSCULAR HEMOGLOBIN 29.4 pg (25-34); MEAN CORPUSCULAR HGB CONC 34.2 g/dl (32-36); MEAN PLATELET VOLUME 9.7 fL (7.4-10.4); MONO % 2.5 %; NEUT % 87.2 %; PLATELET COUNT 260 K/uL (130-400); RED BLOOD COUNT 4.52 M/uL (4.2-5.4); WHITE BLOOD COUNT 10.65 K/uL (4.8-10.8)
[2017-03-24 08:18] LABS: BUN/CREATININE RATIO 12.7 (10-20); CALCIUM 9.5 mg/dl (8.5-10.1); CREATININE 1.1 mg/dl (0.60-1.20); POTASSIUM 3.4 mmol/L (3.5-5.1)
[2017-03-24 08:37] LABS: URINE APPEARANCE CLEAR (CLEAR); URINE BILIRUBIN NEG (NEG); URINE COLOR YELLOW; URINE NITRITE NEG (NEG); URINE PH 6.5 (4.5-7.5); URINE SPECIFIC GRAVITY 1.017 (1.000-1.030); UROBILINOGEN NEG (NEG); ZZUR CULT IF INDIC CLEAN CATCH NO
[2017-03-24 08:58] LABS: INR 2.1 (0.9-1.1); PROTHROMBIN TIME (PATIENT) 23.4 SECONDS (9.0-12.0)
[2017-03-24 09:01] LABS: MANUAL MICROSCOPIC REQUIRED? NO; REVIEW REQ? NO
[2017-03-24] MEDS ORDERED: OPTIRAY 320 IV PRN (10:15)
[2017-03-24] MEDS ORDERED: METOCLOPRAMIDE HCL INJ 5 MG/ML 2 ML VIAL IV STA (10:36)
--- NOTE | 2017-03-24 10:53 | DIAGNOSTIC IMAGING REPORT ---
ABD/PELVIS IV AND ORAL CONT CLINICAL HISTORY: 72 years-old Female presenting with severe abd pain, n/v, eval SBO. TECHNIQUE: Multidetector CT of the abdomen and pelvis was performed after the administration of oral and intravenous contrast. IV contrast: 94 L of Optiray 320. A dose lowering technique was used consistent with the principles of ALARA (as low as reasonably achievable). COMPARISON: 03/17/2017. CT DOSE (mGy.cm): The estimated cumulative dose is 1073.93 mGycm. FINDINGS: Tapper Helper topogram: Surgical clips noted in the right mid abdomen. Lung bases: Minimal dependent changes likely atelectasis. Normal heart size. Aortic valve atherosclerosis. Trace right pleural effusion. Liver: Perfusional variation along the fissure for the ligamentum teres. Normal morphology. No focal lesion. Patent hepatic vasculature. Trace perihepatic fluid increased from prior. Biliary: No intrahepatic or extrahepatic biliary ductal dilatation. Normal gallbladder. Pancreas: Moderate parenchymal atrophy. Spleen: Normal. Adrenal glands: Normal. Kidneys and ureters: Normal. No hydronephrosis. Bladder: Normal. Pelvic organs: Uterus surgically absent. No adnexal masses. Bowel: Oral contrast has transited to the ileum. Residual prior contrast noted in the colon. Sigmoid diverticulosis. Tethering of the sigmoid colon with suggestion of adhesions in the pelvis. Focal narrowing of the proximal transverse colon adjacent to a surgical clip (series 2 image 46). The ascending colon is nondilated. Normal appendix. Interval development of small bowel dilatation, which measures up to 3.4 cm in diameter. No evidence of an up stream transition point. Multifocal sites of tapering in the superior right pelvis with a kinked configuration of small bowel. Decompressed terminal ileum. Peritoneal cavity: No free fluid or intraperitoneal gas. Multifocal omental and peritoneal soft tissue nodularity again noted primarily in the left upper quadrant. Vasculature: Atherosclerosis of the normal caliber abdominal aorta. IVC patent. Lymph nodes: No enlarged lymph nodes in the abdomen or pelvis. Abdominal wall: Nodularity along the periumbilical region. Musculoskeletal: Degenerative changes of the spine. IMPRESSION: 1. Findings consistent with at least partial high-grade bowel obstruction likely at multiple sites in the right superior pelvis secondary to adhesions. 2. Additional focal narrowing of the proximal transverse colon adjacent to a surgical clip. No distention of the right colon to suggest obstruction at this level. 3. Persistent peritoneal metastases. Electronically signed by: Shailesh Armstrong M.D. 03/24/2017 10:52 AM Dictated Date/Time: 03/24/2017 10:28 AM
--- NOTE | 2017-03-24 14:58 | Surgery Consultation ---
Consultation Date of Consultation: Mar 24, 2017. Attending Physician: Reason for Consultation: History of ovarian cancer s/p debulking, concern for bowel obstruction History of Present Illness Akila Glass is a 72 year old woman with history of ovarian cancer s/p surgical debulking and chemotherapy (most recent treatment on 02/04/17) who presents with abdominal pain, N/V. She was recently admitted to [facility] for similar symptoms, was managed non operatively (by Dr. Carbajal) for a partial small bowel obstruction. Symptoms improved, she was tolerating a regular diet and having BMs, and was discharged on 03/18/17. Over the first few days at home, she did not eat much. Tuesday and Tuesday she ate a little more (soft / cooked foods only) which she seemed to tolerate without difficulty. This morning, she was awakened from sleep at 4am with diffuse abdominal pain, nausea and vomiting. Pain was constant and severe, so she presented to the ED for evaluation. A CT scan of the abdomen / pelvis was completed, which showed peritoneal mets and a high grade partial small bowel obstruction, with dilated loops of small bowel with possible transition point in RLQ and air and stool throughout the colon. Following the CT scan she had nausea and vomiting (vomited up CT scan contrast) , but denies nausea at this time. Abdominal pain has improved with IV pain medication. Last had a BM 2 days ago; has been passing flatus as recently as this morning. Denies fever, chills, headaches, dizziness, vision changes, chest pain, SOB, constipation / diarrhea, melena / hematochezia, dysuria or urinary symptoms, pain / swelling in extremities. She has numbness and tingling in her hands and feet secondary to chemotherapy, no recent changes. She has a surgical history of hysterectomy and oophorectomy with surgical debulking of the tumor (followed by Dr. Garvey and Dr. Medina at [facility] in [place]), no other abdominal surgeries. She is followed by Dr. Agustin ([facility] Oncology). She takes Coumadin for a history of PE which occurred s/p lung biopsy 2 years ago. Past Medical/Surgical History Medical Problems: (1) Dehydration Status: Acute (2) Partial small bowel obstruction Status: Acute (3) Small bowel obstruction Status: Acute (4) Small bowel obstruction Status: Acute Family History Cancer Diabetes mellitus FH: heart disease FHx: gallbladder disease Hypertension Kidney disease Kidney stones Seizures Social History Smoking Status: Never Smoker Drug Use: none Marital Status: Housing Status: lives with significant other Occupation Status: unemployed Allergies Coded Allergies: Carboplatin (Unverified Allergy, Unknown, anaphylaxis, 03/15/17) Oxycodone (Unverified Allergy, Unknown, VOMITING, 03/15/17) Lisinopril (Verified Adverse Reaction, Severe, coughing, 03/15/17) Home Medications Scheduled Calcium/Vitamin D (Os-Yao 500 Plus D), 1 TAB PO BID Dexamethasone (Decadron), 4 MG PO UD Duloxetine HCl (Cymbalta), 60 MG PO QAM Ergocalciferol (Vitamin D 65371 Unit), 1 TAB PO WK Fluticasone Prop/Salmeterol (Advair Diskus 250/50 60 Dose), 1 PUFF PO BID Gabapentin (Gabapentin), 200 MG PO QPM Gabapentin (Neurontin), 100 MG PO BID Levothyroxine Sodium (Levothyroxine Sodium), 75 MCG PO QAM Magnesium Oxide (Mag-Ox), 400 MG PO BID Metformin Hcl Er (Glucophage Er), 1,000 MG PO DAILY Polyethylene Glycol 3350 (Miralax), 17 GM PO DAILY Ranitidine HCl (Ranitidine HCl), 150 MG PO UD Rosuvastatin Calcium (Crestor), 5 MG PO QPM Senna (Senna-Grx), 5 ML PO BID Triamterene/Hctz (Triamterene/Hctz 37.5-25MG), 1 TAB PO QAM Warfarin Sod (Coumadin), 2.5 MG PO 5XWK Warfarin Sod (Coumadin), 5 MG PO 2XWK Scheduled PRN Albuterol Hfa (Ventolin Hfa), 2 PUFFS INH Q4 PRN for Wheezing Lorazepam (Ativan), 0.5 MG PO Q4 PRN for Anxiety Ondansetron (Ondansetron HCl), 8 MG PO Q8 PRN for Nausea Promethazine HCl (Promethazine HCl), 25 MG PO Q4 PRN for Nausea Tapentadol Hcl (Nucynta), 50 MG PO Q4 PRN for Pain Current Inpatient Medications Current Inpatient Medications Medications (Trade) Dose Ordered Sig/Alcides Route Start Time Stop Time Status Last Admin Dose Admin Ioversol (Optiray 320) 125 ml UD PRN IV 03/24/17 10:15 03/28/17 10:14 Review of Systems Constitutional: No fever, No chills, No sweats Eyes: No worsening of vision Respiratory: No cough, No sputum, No shortness of breath, No dyspnea on exertion Cardiovascular: No chest pain, No edema Abdomen: + pain, + nausea, + vomiting Musculoskeletal: No joint pain Genitourinary - Female: No dysuria, No urinary frequency, No urinary urgency Neurologic: + numbness/tingling (hands and feet 2/2 chemotherapy) Physical Exam Date Time Temp Pulse Resp B/P (MAP) Pulse Ox O2 Delivery O2 Flow Rate FiO2 03/24/17 13:56 16 142/83 98 Room Air 03/24/17 12:58 98 16 120/78 97 Room Air 03/24/17 10:47 63 150/83 96 Nasal Cannula 2.0 03/24/17 09:04 75 20 164/86 94 Nasal Cannula 2.0 03/24/17 08:23 85 20 154/88 93 Room Air 03/24/17 06:48 36.5 73 20 154/89 96 Room Air General Appearance: WD/WN, no apparent distress Head: normocephalic, atraumatic Eyes: normal inspection Neck: supple Respiratory/Chest: lungs clear, normal breath sounds, no respiratory distress Cardiovascular: regular rate, rhythm Abdomen/GI: non tender, soft, + abnormal bowel sounds (hypoactive), + distended (slightly) Extremities/Musculoskelatal: normal inspection Neurologic/Psych: alert, normal mood/affect, oriented x 3 Skin: normal color, warm/dry Laboratory Results Last 24 Hours Test 03/24/17 07:43 03/24/17 08:00 03/24/17 08:02 White Blood Count 10.65 K/uL Red Blood Count 4.52 M/uL Hemoglobin 13.3 g/dL Hematocrit 38.9 % Mean Corpuscular Volume 86.1 fL Mean Corpuscular Hemoglobin 29.4 pg Mean Corpuscular Hemoglobin Concent 34.2 g/dl Platelet Count 260 K/uL Mean Platelet Volume 9.7 fL Neutrophils (%) (Auto) 87.2 % Lymphocytes (%) (Auto) 9.5 % Monocytes (%) (Auto) 2.5 % Eosinophils (%) (Auto) 0.2 % Basophils (%) (Auto) 0.3 % Neutrophils # (Auto) 9.29 K/uL Lymphocytes # (Auto) 1.01 K/uL Monocytes # (Auto) 0.27 K/uL Eosinophils # (Auto) 0.02 K/uL Basophils # (Auto) 0.03 K/uL RDW Standard Deviation 47.2 fL RDW Coefficient of Variation 14.9 % Immature Granulocyte % (Auto) 0.3 % Immature Granulocyte # (Auto) 0.03 K/uL Prothrombin Time 23.4 SECONDS Prothromb Time International Ratio 2.1 Sodium Level 136 mmol/L Potassium Level 3.4 mmol/L Chloride Level 100 mmol/L Carbon Dioxide Level 27 mmol/L Anion Gap 9.0 mmol/L Blood Urea Nitrogen 14 mg/dl Creatinine 1.10 mg/dl Est Creatinine Clear Calc Drug Dose 58.3 ml/min Estimated GFR () 58.5 Estimated GFR (Non- 50.5 BUN/Creatinine Ratio 12.7 Random Glucose 191 mg/dl Calcium Level 9.5 mg/dl Total Bilirubin 0.6 mg/dl Direct Bilirubin 0.2 mg/dl Aspartate Amino Transf (AST/SGOT) 14 U/L Alanine Aminotransferase (ALT/SGPT) 14 U/L Alkaline Phosphatase 73 U/L Total Protein 7.7 gm/dl Albumin 3.6 gm/dl Lipase 65 U/L Urine Color YELLOW Urine Appearance CLEAR Urine pH 6.5 Urine Specific [place] 1.017 Urine Protein NEG Urine Glucose (UA) NEG Urine Ketones TRACE Urine Occult Blood NEG Urine Nitrite NEG Urine Bilirubin NEG Urine Urobilinogen NEG Urine Leukocyte Esterase NEG Bedside Lactic Acid Venous 1.03 mmol/L 03/24/17 CT Abd / Pelvis with IV and PO contrast: IMPRESSION: 1. Findings consistent with at least partial high-grade bowel obstruction likely at multiple sites in the right superior pelvis secondary to adhesions. 2. Additional focal narrowing of the proximal transverse colon adjacent to a surgical clip. No distention of the right colon to suggest obstruction at this level. 3. Persistent peritoneal metastases. Assessment & Plan Akila Glass is a 72 year old woman with ovarian cancer s/p tumor debulking, hysterectomy and oophorectomy receiving chemotherapy with repeated bowel obstructions (managed non operatively) who presents to the ED with signs and symptoms consistent with another bowel obstruction. Patient is afebrile, hemodynamically stable and normal. Comfortable after pain medications given, not actively nauseated / vomiting at this time necessitating NGT. No leukocytosis, labs otherwise unremarkable. She is on coumadin for history of PE s/p lung biopsy, INR is 2.0 on today's labs. -No acute operative intervention indicated at this time -Recommend NPO, NGT if she develops nausea / vomiting again (currently none) -IVF hydration, pain and nausea control as needed -Due to peritoneal metastasis and probable adhesive disease, operation would be very difficult and would attempt non operative management first in an attempt to avoid surgery. Discussed this with patient and her family, and discussed that should she worsen and require surgical therapy, would need transfer to [place] given difficulty level of case. -After discussion with patient and her family, they would like a transfer to [facility] at this time for further management at this time to be seen by her [facility] (Dr. Skyla Garvey), given the fact that she had a similar episode only last week and only had a few days at home before hospitalization again. -Discussed with ED physician, who will arrange transfer. Luba Borden MD 03/24/17
[2017-03-24 16:13] VITALS: TEMP 36.7
[2017-03-24] MEDS: FENTANYL CITRATE INJ 50 MCG/1 ML 2 ML VIAL IV PRN ×2 (18:55→23:20)
[2017-03-24 23:22] VITALS: BP 130/80; PULSE 69; O2SAT 94
--- NOTE | 2017-03-25 02:29 | EMERGENCY ROOM VISIT NOTE ---
ED Visit Note Patient was seen and evaluated by LAMONTE Bronson. Please refer to her note regarding patient's stay. At time of shift change, I did resume care of the patient. Patient was evaluated, and requested more pain medication. She was given fentanyl at various times throughout her stay. She was resting pleasantly. She was then transferred without difficulty to [facility].
== END 2017-03-24 23:40 | disposition short-term general hospital (02) ==
LOC: C.EDB 06:40
DX: K56.60 Unspecified intestinal obstruction (principal); E86.0 Dehydration; C56.9 Malignant neoplasm of unspecified ovary; C78.6 Secondary malignant neoplasm of retroperitoneum and peritoneum; R10.9 Unspecified abdominal pain; I10 Essential (primary) hypertension; E11.9 Type 2 diabetes mellitus without complications; R00.1 Bradycardia, unspecified; J45.909 Unspecified asthma, uncomplicated; Z90.710 Acquired absence of both cervix and uterus; Z90.721 Acquired absence of ovaries, unilateral; Z86.711 Personal history of pulmonary embolism; Z83.3 Family history of diabetes mellitus; Z82.49 Family history of ischemic heart disease and other diseases of the circulatory system; Z84.1 Family history of disorders of kidney and ureter; Z82.0 Family history of epilepsy and other diseases of the nervous system; Z79.84 Long term (current) use of oral hypoglycemic drugs; Z79.01 Long term (current) use of anticoagulants